=== PATIENT | female | born 1995 | race Caucasian/White ===

== ENCOUNTER → 2019-11-12 18:37 | Outpatient (BNVA) | payer SELFPAY | PROVIDERS: Visit Provider Nurse Practitioner Family | DX: R10.2 Pelvic and perineal pain (principal) | CPT/HCPCS: 81003; 81025; 87491; 87591; 87661 ==

== ENCOUNTER 2021-06-07 13:46 | Emergency (ER) | payer SELFPAY ==
[2021-06-07 14:02] VITALS: BP 115/72; PULSE 94; RESP 18; TEMP 36.4; O2SAT 100; BMI 23.8
--- NOTE | 2021-06-07 15:50 | XRR_ITS ---
PROCEDURE INFORMATION: Exam: XR Right Hand Exam date and time: 06/07/2021 3:50 PM Age: 25 years old Clinical indication: Pain and injury or trauma; Other: Dog bite; Injury details: Noted to have a knot to top of right hand with puncture jackie present. Reports pain as an 8 and describes as throbbing TECHNIQUE: Imaging protocol: XR Right hand. Views: 3 or more views. COMPARISON: No relevant prior studies available. FINDINGS: Bones/joints: No evidence of fracture or other posttraumatic sequela to the underlying osseous structures of the right hand. Joint spaces of the hand are preserved. Soft tissues: Normal. XR/XR hand RT min 3V* [id number] IMPRESSION: No acute osseous abnormalities of the right hand.
--- NOTE | 2021-06-07 17:13 | ED_ITS ---
HPI - Animal Bite General: Chief Complaint: Animal Bite Stated Complaint: DOG BITE/RUE TODAY Time Seen by Provider: 06/07/21 17:13 History of Present Illness: HPI narrative: 25-year-old female comes in today with complaints of injury to the right hand. Patient was trying to hold her dog back from another animal when they got into a fight. Patient sustained a puncture wound to the dorsal and palmar side of her right hand. Patient appears well. Patient appears no acute distress. Animal is patient's own pet. Review of Systems General: Reports: 10 or more systems reviewed and unremarkable except in HPI and below Skin/Breast: Reports: other (Puncture wound hand right.) [facility] ED PFSH: Social History (System 11/28/19 @ 15:34 by Jenn Garnett) Smoking and tobacco status: current every day smoker Alcohol intake: never Physical Exam Const: COMMON NORMALS: no acute distress and patient oriented x3 GENERAL APPEARANCE: cooperative HENMT: COMMON NORMALS: normocephalic and Normal external nose present HEAD & SCALP: normal to inspection and normocephalic NOSE: Normal external nose present MOUTH: Normal oral and palatal mucosa present Eye: GENERAL EYE: appearance normal, both eyes and all related structures Neck/C-Spine: COMMON NORMALS: full ROM Chest: COMMONS NORMALS: normal inspection of the chest Resp: COMMON NORMALS: normal respiratory effort EFFORT & INSPECTION: Yes able to speak in complete sentences Cardio: COMMON NORMALS: regular rate and regular rhythm RATE: regular rate RHYTHM: regular rhythm GI: COMMON NORMALS: non-tender : COMMON NORMALS: Yes no CVA tenderness BLADDER/KIDNEY EXAM: Yes no CVA tenderness Back/Pelvis: COMMON NORMALS: no CVA tenderness and thoracic and lumbar spine normal to inspection Extremity: COMMON NORMALS: normal to inspection Neuro: COMMON NORMALS: patient oriented x3 and moves all extremities Psych: COMMON NORMALS: mental status grossly normal and cooperative Skin: NARRATIVE SKIN EXAM: Puncture wound to the dorsal and palmar aspect of the right hand. Patient is able to move the hand without difficulty. Distal sensation and cap refill are intact. Course ED course: 1729, [facility] was notified of animal bite to the dispatcher's office. Vital Signs: Vital signs: Vital Signs Temperature 97.5 F L 06/07/21 14:02 Pulse Rate 94 06/07/21 14:02 Respiratory Rate 18 06/07/21 14:02 Blood Pressure 115/72 06/07/21 14:02 Pulse Oximetry 100 06/07/21 14:02 MDM - Animal Bite MDM Narrative: Medical decision making narrative: Patient comes in today for evaluation of injury to the right hand. On exam patient has normal range of motion, prompt cap refill, and normal sensation. Vital signs are normal. Patient's tetanus is up-to-date. Differential diagnosis includes fracture, foreign body, puncture wound, animal bite. X-ray was negative for any fracture or foreign body. Wound was cleaned. Patient be started on Augmentin 1 tablet twice a day for 7 days. Encourage fluids rest follow-up for worsening symptoms or new concerns. Patient reported understanding. Discharge Plan Discharge Patient Disposition: Home Clinical Impression: Bite by animal Condition: Stable Prescriptions: New Augmentin 875-125 mg tablet 1 tab PO BID Qty: 14 RF: 0 ibuprofen 800 mg tablet 800 mg PO Q8H PRN (Reason: pain) Qty: 20 RF: 0 Discharge Orders: Discharge ED (Routine); Ordered 06/07/21 Ordered By: Angel Hawthorne Discharge Diet: Usual diet Discharge Activity: Increase activity as tolerated Patient Instructions: Animal Bite (ED), Opioid Safety Activity Restrictions/Additional Instructions: Keep wound clean and dry. Take antibiotics twice a day for the next 7 days. Drink plenty of fluids of antibiotics. Monitor site for worsening swelling redness and fever. Follow-up with primary care return to the ER for new annika rns. Coding Level of Care Code ED Skip Miner for Kyleigh Valadez Exam Comprehensive
== END 2021-06-07 17:20 | disposition home or self-care (01) ==
PROVIDERS: Emergency Provider Nurse Practitioner Family
DX: S61.451A Open bite of right hand, initial encounter (principal); W54.0XXA Bitten by dog, initial encounter; F17.210 Nicotine dependence, cigarettes, uncomplicated
CPT/HCPCS: 73130; 99282

== ENCOUNTER 2021-10-10 10:42 | Emergency (ER) | payer SELFPAY ==
[2021-10-10 11:11] VITALS: BMI 23.8
--- NOTE | 2021-10-10 11:12 | XR_ITS ---
WS: [email or web address] Exam: XR hand RT min 3V* [id number] Date/Time of Exam: 10/10/2021 11:22 AM Reason For Exam: injury, ?radiopaque foreign body Comparison 06/07/2021. No fracture or dislocation. No radiopaque soft tissue foreign bodies are seen. XR/XR hand RT min 3V* [id number] IMPRESSION: 1. Negative right hand.
[2021-10-10 11:28] VITALS: BP 132/81; PULSE 110; RESP 16; O2SAT 97
--- NOTE | 2021-10-10 11:31 | W.ED.EXTPRO ---
HPI - Extremity Problem General: Chief complaint: Extremity Injury, Lower Stated complaint: GLASS IN R HAND Time Seen by Provider: 10/10/21 11:30 History of Present Illness: HPI Narrative: Left hand pain after injury 2 months ago, ongoing MD Complaint: extremity pain and joint pain Location: left and upper extremity Quality: aching Exacerbating factors: range of motion Review of Systems General: Reports: 10 or more systems reviewed and unremarkable except in HPI and below Musc: Reports: joint pain and limited range of motion (left wrist ) PFS ED PFSH: Social History Smoking and tobacco status: current every day smoker Alcohol intake: never Physical Exam Extremity: LEFT UPPER EXTREMITY: Yes wrist (small laceration to the left inside wrist-minimal exudate ) Left wrist: Yes ROM (pain with rotation both supination and pronation) and Yes neurovascular exam (normal) Course ED course: Pt states she has had pain in her left wrist since it went through glass two months ago. She states she has had pain that worsens when she is rotating her wrist. No obvious signs of infection or FB. Xray was negative for FB. Small amount of exudate noted where pt had been trying to see if there was glass still embedded. Will do keflex to treat any underlying infection and hand surgeon if pain persists. Vital Signs: Vital signs: Vital Signs Pulse Rate 110 H 10/10/21 11:28 Respiratory Rate 16 10/10/21 11:28 Blood Pressure 132/81 10/10/21 11:28 Pulse Oximetry 97 10/10/21 11:28 MDM - Extremity (Nontraumatic) Imaging Data^: Xray Ortho: Radiologist's impression: [facility] [address] [place] [address] XRay Report Signed Patient: Shayla Goss Unit #: [id number] : 1995 Age/Sex: 26 / F ADM Date: 10/10/21 Loc: ER Room/Bed: Attending Dr: Ordering Provider/Ordering MD: Dm Chaudhry MD Date of Service: 10/10/21 Procedure(s): XR hand RT min 3V* 93431 Accession Number(s): [id number] Report Number: [id number] WS: [id number] Exam: XR hand RT min 3V* 10835 Date/Time of Exam: 10/10/2021 11:22 AM Reason For Exam: injury, ?radiopaque foreign body Comparison 06/07/2021. No fracture or dislocation. No radiopaque soft tissue foreign bodies are seen. XR/XR hand RT min 3V* [id number] IMPRESSION: 1. Negative right hand. Dictated By: Heri Klein DO Signed By: Heri Klein DO Signed Date/Time: 10/10/21 1141 DD/ 1139 Discharge Plan Discharge Condition: Stable Prescriptions: New Keflex 750 mg capsule 750 mg PO BID 7 Days Qty: 14 RF: 0 No Action Augmentin 875-125 mg tablet 1 tab PO BID Qty: 14 RF: 0 ibuprofen 800 mg tablet 800 mg PO Q8H PRN (Reason: pain) Qty: 20 RF: 0 Discharge Orders: Discharge ED (Routine); Ordered 10/10/21 Ordered By: Aretha Miller Discharge Diet: Usual diet Discharge Activity: Increase activity as tolerated Coding Level of Care Code ED Multifocal Button Inspector for Kyleigh Valadez
--- NOTE | 2021-10-17 11:13 | DCPLANNER ---
senior consulting manager had message to schedule a follow up appointment for patient with a hand surgeon if pain persists. Patient called case resolution specialist and stated that she would like to be referred to Etta. senior consulting manager faxed patients information to Etta, who will call patient with appointment information.
== END 2021-10-10 12:40 ==
PROVIDERS: Emergency Provider Nurse Practitioner Family
DX: M79.642 Pain in left hand (principal); F17.210 Nicotine dependence, cigarettes, uncomplicated
CPT/HCPCS: 73130; 99282

== ENCOUNTER 2021-10-19 09:05 | Emergency (ER) | payer SELFPAY ==
[2021-10-19 09:25] VITALS: BP 151/91; PULSE 82; RESP 19; TEMP 37.2; O2SAT 96; BMI 21.0
--- NOTE | 2021-10-19 09:36 | W.ED.DENTAL ---
HPI - Dental/Oral General: Chief complaint: Dental/Oral Stated complaint: possible absess tooth Time Seen by Provider: 10/19/21 09:06 Source: patient Mode of arrival: ambulatory Limitations: no limitations History of Present Illness: HPI Narrative: Patient is a 26-year-old female who presents to ED today with a complaint of right-sided facial swelling that she noticed when she awoke this morning. Patient states she has chronic very poor dentition. Patient denies fevers or headache. She continues to eat and drink normally. MD Complaint: tooth pain Teeth map: 1. missing tooth; reports pain here Onset (ago): hour(s) Duration: constant Severity: moderate Relieving factors: nothing Exacerbating factors: nothing Context: history of dental caries Associated symptoms: Reports no associated symptoms; Denies ear or mastoid pain, fever(s) or odynophagia Review of Systems Const: Denies: fever(s), chills, body aches, fatigue or malaise Eyes: Denies: change in vision ENMT: Reports: swelling of lips/tongue (some mild R upper lip swelling) and dental pain; Denies: throat pain, uvular edema, enlarged tonsils, odynophagia, oral sores, ear or mastoid pain, ear discharge, nasal discharge, nasal congestion, epistaxis, post nasal drip or sinus pain Card: Denies: chest pain Resp: Denies: dyspnea GI: Denies: nausea or vomiting Musc: Denies: neck pain Skin/Breast: Denies: rash Neuro: Denies: headache(s) PFS ED PFSH: Social History Smoking and tobacco status: current every day smoker Alcohol intake: never Physical Exam Const: COMMON NORMALS: no acute distress, average body habitus, patient oriented x3, no limitations, healthy appearing, alert and well nourished GENERAL APPEARANCE: cooperative HENMT: COMMON NORMALS: normocephalic, atraumatic and Normal external nose present HEAD & SCALP: normal to inspection, normocephalic and atraumatic FACE & SINUS: other (swelling to R maxillary region) FACE & SINUS IMAGES: 1. swelling to R upper lip and overlying R maxillary region; no palpable abscess; no fluctuance to gumline NOSE: Normal external nose present MOUTH: Normal oral and palatal mucosa present, tongue normal and other (floor of mouth is normal) TEETH & GINGIVA: Yes other (extremely poor widespread dental decay) THROAT: posterior oropharynx normal, tonsils normal and uvula midline; no uvular edema Eye: GENERAL EYE: appearance normal, both eyes and all related structures Neck/C-Spine: COMMON NORMALS: full ROM and no lymphadenopathy GENERAL: No anterior neck swelling and No submandibular swelling Neuro: COMMON NORMALS: patient oriented x3 SENSORIUM/ORIENTATION: Yes alert Course Vital Signs: Vital signs: Vital Signs Temperature 98.9 F 10/19/21 09:25 Pulse Rate 84 10/19/21 09:44 Respiratory Rate 18 10/19/21 09:44 Blood Pressure 151/92 10/19/21 09:44 Pulse Oximetry 96 10/19/21 09:44 MDM - Dental/Oral MDM Narrative: Medical decision making narrative: Swelling just started this AM. I don't think emergent labs/imaging would be overly helpful at this time. Will place on oral clindamycin and recommend prompt dental follow up-resources provided for nearby clinics. Strict return to ED precautions given. Discharge Plan Discharge Patient Disposition: Home Clinical Impression: Dental caries, Dental abscess Condition: Stable Prescriptions: New clindamycin HCl 300 mg capsule 300 mg PO Q6H 7 Days Qty: 28 RF: 0 Discontinued amoxicillin-pot clavulanate [Augmentin] 875-125 mg tablet 1 tab PO BID Qty: 14 RF: 0 No Action ibuprofen 800 mg tablet 800 mg PO Q8H PRN (Reason: pain) Qty: 20 RF: 0 Discharge Orders: Discharge ED (Routine); Ordered 10/19/21 Ordered By: Marla Perez Patient Instructions: Dental Caries (Cavities), Dental Abscess (ED) Activity Restrictions/Additional Instructions: As we discussed you need to follow-up with a dentist as soon as possible. I have provided you dental resources to help with this. You need to return to the emergency department for worsening swelling, pain, fevers, severe headache, or any other concerns you may have. I hope you begin to feel better soon. Coding Level of Care Code ED Research Quality Assurance Specialist for Kyleigh Valadez
--- NOTE | 2021-10-19 09:43 | PC.NURSE ---
Dental cavities on top right
[2021-10-19 09:44] VITALS: BP 151/92; PULSE 84; RESP 18; O2SAT 96
== END 2021-10-19 09:47 | disposition home or self-care (01) ==
PROVIDERS: Emergency Provider Physician Assistant
DX: K02.9 Dental caries, unspecified (principal); K04.7 Periapical abscess without sinus; F17.210 Nicotine dependence, cigarettes, uncomplicated
CPT/HCPCS: 99282

== ENCOUNTER 2022-01-28 12:58 | Emergency (ER) | payer MEDICAID, SELFPAY ==
[2022-01-28 13:13] VITALS: BP 118/74; PULSE 87; RESP 18; TEMP 36.7; O2SAT 100; BMI 23.2
--- NOTE | 2022-01-28 13:50 | XR_ITS ---
WS: [id number] Exam: XR chest 2V* [id number] Date/Time of Exam: 01/28/2022 2:02 PM Reason For Exam: chest pain No priors. Findings: The lungs are clear and fully expanded. Costophrenic angles are sharp. No infiltrates. Bronchovascula r relief appears normal. Cardiac silhouette is unremarkable. Bony elements are intact. XR/XR chest 2V* [id number] IMPRESSION: Unremarkable chest radiograph.
--- NOTE | 2022-01-28 13:50 | ECG_ITS ---
[facility] Test Date: 2022-01-28 Pat Name: Shayla Goss Department: Room: Gender: Female Estate Attorney: : 1995 Requested By: Saida Devries Order Number: [id number] Masha MD: Ken Palmer M.D. Measurements Intervals [place] Rate: 73 P: 60 FL: 125 QRS: 58 QRSD: 86 T: 55 QT: 379 QTc: 420 Interpretive Statements SINUS RHYTHM WITH SINUS ARRHYTHMIA Compared to ECG 04/27/2016 21:57:06 Sinus tachycardia no longer present Electronically Signed On 01-29-2022 17:02:22 CDT by Ken Palmer M.D. [id number]
[2022-01-28 14:42] VITALS: BP 118/74; PULSE 87; RESP 16; O2SAT 100
--- NOTE | 2022-01-28 14:52 | W.ED.GENADLT ---
HPI - General Adult General: Chief complaint: Chest Pain Stated complaint: CP Time Seen by Provider: 01/28/22 14:36 History of Present Illness: Patient is a 26-year-old female with a family hx of heart attacks presenting to the emergency room for evaluation of chest pain. Patient tells me she was rolling a cigarette in a 30 this morning when she began having chest pain. Patient noted that she has pressure-like sensation lasting for 10 minutes at a time she has had multiple episodes chest pain today. Patient denies any nausea vomiting, exertional shortness of breath, pleuritic chest pain, tearing stabbing chest pain w/ radiation to the back. Patient denies any history of prior VTE or aneurysm. Patient denies any leg swelling, recent immobilization or travel, OCP use Onset: 8:30am Duration: 5 hrs Location:home Severity:moderate Associated symptoms: Reports chest pain; Deny dyspnea, nausea, rash, palpitations or vomiting Review of Systems Const: Denies: fever(s) or chills Eyes: Denies: change in vision ENMT: Denies: mouth pain Card: Reports: chest pain; Denies: palpitations Resp: Denies: dyspnea or non-productive cough GI: Denies: abdominal pain, nausea, vomiting or diarrhea : Denies: dysuria Musc: Denies: extremity pain Skin/Breast: Denies: rash or new lesions Neuro: Denies: weakness in extremities Psych: Reports: other (Normal mood) Barrera/Lymph: Denies: easy bruising PFS ED PFSH: Family History (Updated 01/28/22 @ 14:54 by Saida Devries MD) Other CAD (coronary artery disease) Social History (Updated 01/28/22 @ 14:54 by Saida Devries MD) Smoking and tobacco status: current every day smoker Alcohol intake: never Physical Exam Const: COMMON NORMALS: alert HENMT: COMMON NORMALS: atraumatic HEAD & SCALP: atraumatic MOUTH: moist mucous membranes not abnormal Eye: COMMON NORMALS: EOMs intact bilaterally and conjunctivae normal CONJUNCTIVA: Yes conjunctivae normal Neck/C-Spine: COMMON NORMALS: full ROM and supple Resp: COMMON NORMALS: normal respiratory effort and clear to auscultation bilaterally AUSCULTATION: clear to auscultation bilaterally Cardio: COMMON NORMALS: regular rate RATE: regular rate OTHER: 2+ radial pulses b/l GI: COMMON NORMALS: Soft to palpation and non-tender PALPATION: Yes Soft to palpation Extremity: COMMON NORMALS: full ROM Neuro: SENSORIUM/ORIENTATION: Yes alert MOTOR EXAM: No Abnormal motor strength present and Other motor observations present (no focal motor deficits) Psych: COMMON NORMALS: speech normal SPEECH: Yes normal speech MOOD & AFFECT: Yes euthymic mood Course Vital Signs: Vital signs: Vital Signs Temperature 98.1 F 01/28/22 13:13 Pulse Rate 87 01/28/22 14:42 Respiratory Rate 16 01/28/22 14:42 Blood Pressure 118/74 01/28/22 14:42 Pulse Oximetry 100 01/28/22 14:42 MDM - General Adult Medical Decision Making 26-year-old female with his family history of cardiac diseases, hypertension presenting to the emergency room for evaluation of new onset of chest pain since 830 this morning. On exam, patient is hemodynamically stable not complaining of active chest pain at this time. Troponin x2 within normal limit. EKG is nonischemic x2. HEART score of 2 (risks - 1, chest pain - 1), which indicates patient can be safely discharged with close outpatient followup. However, given family hx of cardiac issues, I discussed case with Dr. Palmer from Cardiology at 6:45 PM who recommended close in the next 2-4 days for outpatient exercise stress test. Patient aware of the notice from Dr. Palmer's office for stress test. I discussed these findings with patient and instructed patient to come back to the emergency room should she have any further episodes of chest pain, palpitation, lightheadedness or any new extremity complaints. Disposition: Discharge. Patient counseled regarding diagnostic impression, treatment plan. Patient given ED strict return precautions to return for continuation, worsening, or development of new symptoms. Instructed to f/u w/ Dr. Palmer regarding symptoms today. Patient verbalized understanding. Lab Data : 01/28/22 16:07 01/28/22 16:07 Radiology Impressions Chest X-Ray 01/28/22 13:50 IMPRESSION: Unremarkable chest radiograph. Laboratory Results WBC 9.9 10^3/uL (4.0-10.0) 01/28/22 16:07 RBC 5.00 10^6/uL (4.1-5.3) 01/28/22 16:07 Hgb 15.6 g/dL (11.5-15.3) H 01/28/22 16:07 Hct 46.0 % (37.0-47.0) 01/28/22 16:07 MCV 92.0 fl (81-99) 01/28/22 16:07 MCH 31.2 pg (28.0-34.0) 01/28/22 16:07 MCHC 33.9 g/dL (30.0-36.0) 01/28/22 16:07 RDW 12.7 % (12.1-15.1) 01/28/22 16:07 Plt Count 331 10^3/cmm (130-400) 01/28/22 16:07 MPV 8.8 fL (7.4-10.4) 01/28/22 16:07 Neut % (Auto) 65.0 % 01/28/22 16:07 Lymph % (Auto) 24.6 % 01/28/22 16:07 Carter % (Auto) 6.0 % 01/28/22 16:07 Eos % (Auto) 3.3 % 01/28/22 16:07 Baso % (Auto) 0.8 % 01/28/22 16:07 Neut # (Auto) 6.45 10^3/uL (1.8-7.7) 01/28/22 16:07 Lymph # (Auto) 2.4 10^3/uL (0.8-4.8) 01/28/22 16:07 Carter # (Auto) 0.6 10^3/uL (0.2-0.9) 01/28/22 16:07 Eos # (Auto) 0.3 10^3/uL (0.0-0.8) 01/28/22 16:07 Baso # (Auto) 0.1 10^3/uL (0.0-0.1) 01/28/22 16:07 Nucleated RBC % (auto) 0 % 01/28/22 16:07 Nucleated RBCs # 0.0 /100WBC 01/28/22 16:07 Sodium 135 mmol/L (136-145) L 01/28/22 16:07 Potassium 4.1 mmol/L (3.5-5.1) 01/28/22 16:07 Chloride 101 mmol/L (98-107) 01/28/22 16:07 Carbon Dioxide 23 mmol/L (22-29) 01/28/22 16:07 Anion Gap 15.1 (5-19) 01/28/22 16:07 BUN 12 mg/dL (6-20) 01/28/22 16:07 Creatinine 0.8 mg/dL (0.5-0.9) 01/28/22 16:07 GFR Calculation 86.0 mL/min (90-130) L 01/28/22 16:07 Glucose 86 mg/dL (65-115) 01/28/22 16:07 Calculated Osmolality 279 mOsm/kg (285-295) L 01/28/22 16:07 Calcium 9.6 mg/dL (8.5-10.5) 01/28/22 16:07 Troponin T Baseline 6 ng/L (0-10) 01/28/22 16:07 Troponin T 120 Minute 6.00 ng/L (0-10) 01/28/22 17:53 Delta Troponin T 0 ABS# (0-10) 01/28/22 17:53 Imaging Data Other Imaging: Radiologist's impression: [employer] [address] XRay Report Signed Patient: Shayla Goss Unit #: [id number] : 1995 Age/Sex: 26 / F ADM Date: 01/28/22 Loc: ER Room/Bed: Attending Dr: Ordering Provider/Ordering MD: Saida Devries MD Date of Service: 01/28/22 Procedure(s): XR chest 2V* 20570 Accession Number(s): [id number] Report Number: [id number] WS: [id number] Exam: XR chest 2V* [id number] Date/Time of Exam: 01/28/2022 2:02 PM Reason For Exam: chest pain No priors. Findings: The lungs are clear and fully expanded. Costophrenic angles are sharp. No infiltrates. Bronchovascular relief appears normal. Cardiac silhouette is unremarkable. Bony elements are intact. ? XR/XR chest 2V* [id number] IMPRESSION: Unremarkable chest radiograph. ? ? Dictated By: Heri Klein DO Signed By: Heri Latoya, DO Signed Date/Time: 01/28/221412 DD/ 12 Discharge Plan Discharge Patient Disposition: Home Clinical Impression: Chest pain Prescriptions: New acetaminophen 500 mg tablet 500 mg PO Q6H PRN (Reason: pain) 5 Days Qty: 20 0RF Discharge Orders: Discharge ED (Routine); Ordered 01/28/22 Ordered By: Saida Devries Discharge Diet: Advance as tolerated Discharge Activity: Increase activity as tolerated Patient Instructions: Chest Pain (ED) Activity Restrictions/Additional Instructions: Come back to the emergency room if your chest pain worsens, have any fever or chills, worsening shortness of breath, worsening exertional lightheadedness, or any new or concerning complaints. Stand Alone Forms: Work/School Release Coding Level of Care Code ED Contract Mail Carrier for Patriciag Fwd Exam Comprehensive
[2022-01-28 16:29] LABS: Basophils # 0.1 10^3/uL (0.0-0.1); Basophils % 0.8 %; Eosinophils # 0.3 10^3/uL (0.0-0.8); Eosinophils % 3.3 %; Hemoglobin 15.6 g/dL (11.5-15.3); Lymphocytes # 2.4 10^3/uL (0.8-4.8); Lymphocytes % 24.6 %; Mean Corpuscular HGB Conc 33.9 g/dL (30.0-36.0); Mean Corpuscular Hemoglobin 31.2 pg (28.0-34.0); Mean Platelet Volume 8.8 fL (7.4-10.4); Monocytes # 0.6 10^3/uL (0.2-0.9); Neutrophils # 6.45 10^3/uL (1.8-7.7); Nucleated Red Blood Cells % 0 %; Platelet Count 331 10^3/cmm (130-400); Red Cell Distribution Width 12.7 % (12.1-15.1); White Blood Count 9.9 10^3/uL (4.0-10.0)
--- NOTE | 2022-01-28 16:47 | ECG_ITS ---
[facility] Test Date: 2022-01-28 Pat Name: Shayla Goss Department: Room: Gender: Female Bus And Trolley Dispatcher: : 1995 Requested By: Saida Devries Order Number: [id number] Masha MD: Ken Palmer M.D. Measurements Intervals [place] Rate: 72 P: 58 [place]: 120 QRS: 59 QRSD: 92 T: 61 QT: 386 QTc: 422 Interpretive Statements SINUS RHYTHM WITH SINUS ARRHYTHMIA POSSIBLE RIGHT VENTRICULAR CONDUCTION DELAY [RSR (QR) IN V1/V2] Compared to ECG 01/28/2022 13:21:48 No significant changes Electronically Signed On 01-29-2022 17:15:35 CDT by Ken Palmer M.D. [id number]
[2022-01-28 16:53] LABS: Anion Gap 15.1 (5-19); Blood Urea Nitrogen 12 mg/dL (6-20); Calcium 9.6 mg/dL (8.5-10.5); Carbon Dioxide 23 mmol/L (22-29); Chloride 101 mmol/L (98-107); Glucose 86 mg/dL (65-115); Osmolality Calculated 279 mOsm/kg (285-295); Potassium 4.1 mmol/L (3.5-5.1); Sodium 135 mmol/L (136-145)
[2022-01-28 17:20] LABS: Troponin(5th) Baseline 6 ng/L (0-10)
[2022-01-28] MEDS: nitroglycerin 0.4 mg sublingual Tablet SUBLINGUAL (17:25)
[2022-01-28 18:41] LABS: Troponin 5 2HR Delta 0 ABS# (0-10)
--- NOTE | 2022-01-31 13:37 | DCPLANNER ---
Addendum entered by Pratima Soria 07/22/22 14:49: was inactivated by [employer] per no self-pay clearance. Addendum entered by Pratima Soria 02/03/22 09:39: enterprise project manager spoke with Nemo at centralized scheduling to confirm that order was received. Original Note: enterprise project manager had message to schedule an outpatient treadmill stress test in the next 2-[address] Palmer. enterprise project manager was reading patients chart, it read as if Dr. Palmer was going to order the stress test. enterprise project manager spoke with Trish Hurtado at [facility], and was told that there was an order in the computer in patients chart for a cardiac stress test. enterprise project manager called centralized scheduling to confirm that they had received the order, briefcase sewer asked centralized scheduling to look in ambulatory orders. enterprise project manager was told that centralized scheduling did have the order for a stress test.
== END 2022-01-28 18:59 | disposition home or self-care (01) ==
PROVIDERS: Emergency Provider Emergency Medicine
DX: R07.9 Chest pain, unspecified (principal); Z82.49 Family history of ischemic heart disease and other diseases of the circulatory system; F17.200 Nicotine dependence, unspecified, uncomplicated
CPT/HCPCS: 36415; 71046; 80048; 84484; 85025; 93005; 99283

== ENCOUNTER 2022-04-04 10:07 | Inpatient (IN) | payer MEDICAID, SELFPAY ==
[2022-04-04 10:12] VITALS: BP 128/109; PULSE 127; RESP 18; O2SAT 100; BMI 20.1
--- NOTE | 2022-04-04 12:03 | PC.PHAR ---
PT UNABLE TO VERIFY- CALLED BOTH PHARMACIES LISTED NOTHING FILLED SINCE 2020
[2022-04-04] MEDS: diphenhydrAMINE 50 mg/mL SDV 1mL IM (12:11)
[2022-04-04] MEDS: LORazepam 2 mg/mL INJ 1 mL IM (12:11)
--- NOTE | 2022-04-04 13:05 | W.ED.AMS ---
HPI - Altered Mental Status General: Chief Complaint: Altered Mental Status Stated Complaint: MHE Time Seen by Provider: 04/04/22 10:16 Source: patient and police Mode of arrival: ambulatory Limitations: altered mental status History of Present Illness: 26-year-old female presented to the emergency room after being evidently dropped off by an unknown male. She was behaving erratically and police were called and they arrived she had tangential thinking was not aware of time place or person. She has a history of substance abuse. When I came to see the patient she is difficult to engage, she answers questions with tangential thinking and deflects. She declines to answer questions about suicidal thoughts or ideation. She repeatedly states that she just needs documentation so that she can get an appointment and see how her day will go. When I try to follow her line of thinking she is unable to provide any further answers. We did contact her father who evidently has been estranged from her and could not give us any history. She does not appear to have any auditory visual hallucinations. MD complaint: altered mental status Onset (ago): unknown Severity: severe Consistency of symptoms: Unknown Context: drug abuse Associated symptoms: Reports auditory hallucinations (Late in the ER course), delusions and racing thoughts; Deny visual hallucinations, homicidal ideation or suicidal ideation Review of Systems General: Reports: ROS unobtainable due to mental status Psych: Reports: auditory hallucinations (Late in the ER course); Denies: visual hallucinations, suicidal ideation or homicidal ideation [facility] ED PFSH: Family History Other CAD (coronary artery disease) Social History Smoking and tobacco status: current every day smoker Alcohol intake: never Substance/Drug Use: current Physical Exam Const: EXAM LIMITATIONS: altered mental status GENERAL APPEARANCE: anxious and disheveled; not cooperative NUTRITIONAL APPEARANCE: underweight ORIENTATION/CONSCIOUSNESS: not oriented to person, not oriented to place and not oriented to time HENMT: COMMON NORMALS: normocephalic and atraumatic HEAD & SCALP: normocephalic and atraumatic Eye: COMMON NORMALS: Equal, round and reactive pupils present, EOMs intact bilaterally and conjunctivae normal CONJUNCTIVA: Yes conjunctivae normal PUPIL: Yes Equal, round and reactive pupils present Neck/C-Spine: COMMON NORMALS: full ROM and no lymphadenopathy Resp: COMMON NORMALS: normal respiratory effort, No retractions, No use of accessory muscles and clear to auscultation bilaterally AUSCULTATION: clear to auscultation bilaterally Cardio: COMMON NORMALS: regular rhythm RATE: tachycardic RHYTHM: regular rhythm GI: COMMON NORMALS: Soft to palpation and No hepatosplenomegaly present AUSCULTATION: Yes normoactive bowel sounds PALPATION: Yes Soft to palpation, No Tenderness to palpation present (GI), No Guarding due to palpation present (GI) and Yes No hepatosplenomegaly present : COMMON NORMALS: Yes no CVA tenderness BLADDER/KIDNEY EXAM: Yes no CVA tenderness Back/Pelvis: COMMON NORMALS: no CVA tenderness Neuro: SENSORIUM/ORIENTATION: No oriented to person, No oriented to place and No oriented to time Psych: THOUGHT CONTENT: Yes delusions Course Vital Signs: Vital signs: Vital Signs Temperature 98.1 F 04/05/22 06:00 Pulse Rate 69 04/05/22 06:00 Respiratory Rate 18 04/05/22 06:00 Blood Pressure 103/64 04/05/22 06:00 Pulse Oximetry 98 04/05/22 06:00 MDM - Altered Mental Status Medical Decision Making Patient is methamphetamine due to psychosis. We gave her Benadryl and Ativan to help with the agitation. I had hoped that after a time when she did settle down the psychosis would resolve and we would be able to discharge her home. However after waiting several hours patient continued to be significantly disoriented and have tangential thinking. Later in the visit she even had a few mild hallucinations. There is no comments alluding to suicidal or homicidal ideation however she is not safe to be discharged at this time discussed Dr. De Leon will admit for acute drug-induced psychosis. She is on a 96-hour hold. Medical Records I reviewed the patient's medical records. Lab Data I reviewed the patient's lab results. : 04/04/22 13:50 04/04/22 13:50 Laboratory Results WBC 9.1 10^3/uL (4.0-10.0) 04/04/22 13:50 RBC 5.35 10^6/uL (4.1-5.3) H 04/04/22 13:50 Hgb 16.7 g/dL (11.5-15.3) H 04/04/22 13:50 Hct 47.5 % (37.0-47.0) H 04/04/22 13:50 MCV 88.8 fl (81-99) 04/04/22 13:50 MCH 31.2 pg (28.0-34.0) 04/04/22 13:50 MCHC 35.2 g/dL (30.0-36.0) 04/04/22 13:50 RDW 12.4 % (12.1-15.1) 04/04/22 13:50 Plt Count 412 10^3/cmm (130-400) H 04/04/22 13:50 MPV 8.4 fL (7.4-10.4) 04/04/22 13:50 Neut % (Auto) 67.3 % 04/04/22 13:50 Lymph % (Auto) 21.9 % 04/04/22 13:50 [place] % (Auto) 8.2 % 04/04/22 13:50 Eos % (Auto) 1.8 % 04/04/22 13:50 Baso % (Auto) 0.6 % 04/04/22 13:50 Neut # (Auto) 6.10 10^3/uL (1.8-7.7) 04/04/22 13:50 Lymph # (Auto) 2.0 10^3/uL (0.8-4.8) 04/04/22 13:50 [place] # (Auto) 0.7 10^3/uL (0.2-0.9) 04/04/22 13:50 Eos # (Auto) 0.2 10^3/uL (0.0-0.8) 04/04/22 13:50 Baso # (Auto) 0.1 10^3/uL (0.0-0.1) 04/04/22 13:50 Nucleated RBC % (auto) 0 % 04/04/22 13:50 Nucleated RBCs # 0.0 /100WBC 04/04/22 13:50 Sodium 138 mmol/L (136-145) 04/04/22 13:50 Potassium 3.6 mmol/L (3.5-5.1) 04/04/22 13:50 Chloride 99 mmol/L (98-107) 04/04/22 13:50 Carbon Dioxide 25 mmol/L (22-29) 04/04/22 13:50 Anion Gap 17.6 (5-19) 04/04/22 13:50 BUN 8 mg/dL (6-20) 04/04/22 13:50 Creatinine 0.8 mg/dL (0.5-0.9) 04/04/22 13:50 GFR Calculation 86.0 mL/min (90-130) L 04/04/22 13:50 Glucose 79 mg/dL (65-115) 04/04/22 13:50 Calculated Osmolality 283 mOsm/kg (285-295) L 04/04/22 13:50 Calcium 9.8 mg/dL (8.5-10.5) 04/04/22 13:50 Total Bilirubin 0.7 mg/dL (0.15-1.2) 04/04/22 13:50 AST 18 U/L (0-32) 04/04/22 13:50 ALT 13 U/L (0-33) 04/04/22 13:50 Alkaline Phosphatase 89 IU/L (35-105) 04/04/22 13:50 Total Protein 8.6 g/dL (6.6-8.7) 04/04/22 13:50 Albumin 5.1 g/dL (3.5-5.2) 04/04/22 13:50 Globulin 3.5 g/dL (1.3-4.6) 04/04/22 13:50 HCG, Qual Negative (Negative) 04/04/22 13:58 Urine Color Dark yellow (Yellow) 04/04/22 13:08 Urine Appearance Cloudy (CLEAR) 04/04/22 13:08 Urine pH 5 (5-7) 04/04/22 13:08 Ur Specific [place] 1.030 (1.005-1.030) 04/04/22 13:08 Urine Protein 1+ (Negative) H 04/04/22 13:08 Urine Glucose (UA) Norm (Normal) 04/04/22 13:08 Urine Ketones 1+ (Negative) H 04/04/22 13:08 Urine Blood Trace (Negative) H 04/04/22 13:08 Urine Nitrate Positive (Negative) H 04/04/22 13:08 Urine Bilirubin 1+ (Negative) H 04/04/22 13:08 Urine Urobilinogen 4 mg/dL (Negative) H 04/04/22 13:08 Ur Leukocyte Esterase 1+ (Negative) H 04/04/22 13:08 Urine RBC 0-4 /hpf (0-2) H 04/04/22 13:08 Urine WBC 15-25 /hpf (0-5) H 04/04/22 13:08 Ur Squamous Epith Cells 5-10 /hpf (0-5) H 04/04/22 13:08 Amorphous Sediment Not Reportable 04/04/22 13:08 Urine Bacteria 3+ /hpf (NONE) H 04/04/22 13:08 Hyaline Casts 0-4 /lpf H 04/04/22 13:08 Urine Mucus 2+ /hpf 04/04/22 13:08 Salicylates < 0.3 mg/dL (3-10) L 04/04/22 13:50 Urine Opiates Screen Negative ng/mL (Negative) 04/04/22 13:08 Acetaminophen < 5.0 ug/mL (10-30) L 04/04/22 13:50 Ur Barbiturates Screen Negative ng/mL (Negative) 04/04/22 13:08 Ur Phencyclidine Scrn Negative ng/mL (Negative) 04/04/22 13:08 Ur Amphetamines Screen Positive ng/mL (Negative) H 04/04/22 13:08 U Benzodiazepines Scrn Negative ng/mL (Negative) 04/04/22 13:08 Urine Cocaine Screen Negative ng/mL (Negative) 04/04/22 13:08 U Marijuana (THC) Screen Negative ng/mL (Negative) 04/04/22 13:08 Ethyl Alcohol < 10 mg/dL (0-10) 04/04/22 13:50 Discharge Plan Discharge Patient Disposition: Admitted As Inpatient Admit Provider: Beau De Leon Clinical Impression: Drug-induced psychotic disorder Condition: Stable Coding Level of Care Code ED Animal Attendants And Trainers for Chg Fwd Exam Comprehensive
[2022-04-04 13:27] LABS: Amphetamines Screen Urine Positive (Negative); Barbiturates Screen Urine Negative (Negative); Benzodiazepines Screen Urine Negative (Negative); Cocaine Screen Urine Negative (Negative); Opiate Screen Urine Negative (Negative); PCP Screen Urine Negative (Negative); THC Screen Urine Negative (Negative)
[2022-04-04 13:43] LABS: Add Urine Microscopic? YES; Bilirubin Urine 1+ (Negative); Blood Urine Trace (Negative); Glucose Urine UA Norm (Normal); Ketones Urine 1+ (Negative); Leukocyte Esterase Urine 1+ (Negative); Nitrate Urine Positive (Negative); Protein Urine 1+ (Negative); Urine Appearance Cloudy (CLEAR); Urine Color Dark Yellow (Yellow); Urobilinogen Urine 4 mg/dL (Negative); pH Urine 5 (5-7)
[2022-04-04 13:52] LABS: Bacteria Urine 3+ /hpf; Hyaline Casts Urine 0-4 /lpf; Mucus Urine 2+ /hpf; RBC Urine 0-4 /hpf (0-2); WBC Urine 15-25 /hpf (0-5)
[2022-04-04 13:53] LABS: Add Urine Culture? Yes
[2022-04-04 13:59] LABS: Basophils # 0.1 10^3/uL (0.0-0.1); Basophils % 0.6 %; Eosinophils # 0.2 10^3/uL (0.0-0.8); Eosinophils % 1.8 %; Hematocrit 47.5 % (37.0-47.0); Hemoglobin 16.7 g/dL (11.5-15.3); Lymphocytes % 21.9 %; Mean Corpuscular HGB Conc 35.2 g/dL (30.0-36.0); Mean Corpuscular Hemoglobin 31.2 pg (28.0-34.0); Mean Corpuscular Volume 88.8 fl (81-99); Mean Platelet Volume 8.4 fL (7.4-10.4); Monocytes # 0.7 10^3/uL (0.2-0.9); Monocytes % 8.2 %; Neutrophils % 67.3 %; Nucleated Red Blood Cells % 0 %; Platelet Count 412 10^3/cmm (130-400); Red Blood Count 5.35 10^6/uL (4.1-5.3); Red Cell Distribution Width 12.4 % (12.1-15.1); White Blood Count 9.1 10^3/uL (4.0-10.0)
[2022-04-04 14:21] LABS: Alanine Aminotransferase 13 U/L (0-33); Albumin Level 5.1 g/dL (3.5-5.2); Alkaline Phosphatase 89 IU/L (35-105); Anion Gap 17.6 (5-19); Aspartate Amino Transferase 18 U/L (0-32); Blood Urea Nitrogen 8 mg/dL (6-20); Calcium 9.8 mg/dL (8.5-10.5); Carbon Dioxide 25 mmol/L (22-29); Chloride 99 mmol/L (98-107); Globulin 3.5 g/dL (1.3-4.6); Glucose 79 mg/dL (65-115); Osmolality Calculated 283 mOsm/kg (285-295); Potassium 3.6 mmol/L (3.5-5.1); Sodium 138 mmol/L (136-145); Total Bilirubin 0.7 mg/dL (0.15-1.2); Total Protein 8.6 g/dL (6.6-8.7)
[2022-04-04 14:26] LABS: Acetaminophen < 5.0 ug/mL (10-30); Alcohol Level < 10 mg/dL (0-10); Salicylate < 0.3 mg/dL (3-10)
[2022-04-04 14:54] VITALS: BP 97/70; PULSE 77; RESP 16; O2SAT 100
--- NOTE | 2022-04-04 14:54 | PC.NURSE ---
Rounded on pt. Pt sleeping respirations even and unlabored at this time.
--- NOTE | 2022-04-04 15:51 | PC.NURSE ---
Rounded on pt. Pt sleeping respirations even and unlabored at this time.
[2022-04-04 18:30] LABS: HCG Qualitative Urine. Negative (Negative)
[2022-04-04 19:30] VITALS: BP 105/74; PULSE 100; RESP 20; TEMP 36.6; O2SAT 99
[2022-04-05 06:00] VITALS: BP 103/64; PULSE 69; RESP 18; TEMP 36.7; O2SAT 98
--- NOTE | 2022-04-05 09:04 | PC.NURSE ---
WHEN ASKED WHY SHE IS HERE PT STATES, I FORGOT THE DATE AND THEY THREW ME IN HERE. NO EYE CONTACT THROUGH OUT ASSESSMENT. DENIES PAIN. DENIES SI/HI AND AVH AT THIS TIME. SUPPORT VOICED.
--- NOTE | 2022-04-05 09:31 | P.NPUHP_ITS ---
Providers/Chief Complaint Admitting Physician: Beau De Leon MD Chief Complaint: MHE/96 hour hold HPI NPU History of Present Illness Shayla Goss is a 26 year old female admitted through our emergency depar tment with the following report: 26-year-old female presented to the emergency room after being evidently dropped off by an unknown male.? She was behaving erratically and police were called and they arrived she had tangential thinking was not aware of time place or person.? She has a history of substance abuse.? When I came to see the patient she is difficult to engage, she answers questions with tangential thinking and deflects.? She declines to answer questions about suicidal thoughts or gurinder ation.? She repeatedly states that she just needs documentation so that she can get an appointment and see how her day will go.? When I try to follow her line of thinking she is unable to provide any further answers.? We did contact her father who evidently has been estranged from her and could not give us any history.? She does not appear to have any auditory visual hallucinations. Urine drug screen was positive for methamphetamine She says that she woke up yesterday and her lover, Wade, said that she needed to go to the hospital. He said that she needed mental help. She says that he must not have liked her mood but she does not really know why he thought that. They have been together for about 3 months. She says that he has treated her well up until now. She says that when he brought her here she was resistant to getting out of the car and he evidently called the police. The police say that they came and found her walking her dog and was not able to say where she was. She says that she was in [place] but did not know what states she was in. She did not know what day it was. She says that she is worried because she does not know where her dog is. She thinks that her lover may have made her go to the hospital so that he could get her dog. She has had her dog for 2 years since it was a puppy. She is very worried because she does not know where her dog is. She denies any difficulties with depression, anxiety or mood swings. She denies using methamphetamine recently. She has had her last use was 3 or 6 months ago and she never used very much. She said that she has worked quite a bit in the last year. She has not worked in the last 3 or 4 months. She could not really explain that. She says that she gets subsidized housing and that Marli salgado helps pay her rent. She gets food stamps. She says she was working up until about 4 months ago. Her explanation of not working since then is really difficult to understand. 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 She says that she has been living in her current apartment for about 1 year. She says that her childhood was fine. She denies any emotional difficulty during her teenage years. She says that she graduated from high school. She does not speak much with her mother or father. The emergency room talk with her father who said that he is estranged from her. The emergency room doctor told me that it was because of her drug use. When I asked her about it she had tears in her eyes but did not have an explanation about why she was estranged from her parents. She says they just do not talk. She denies having any emotional difficulties. She denies prior hospitalization. She denies any mental health treatment. She denies difficulty with alcohol, marijuana or methamphetamine. She was informed that she was on a 96-hour hold and that we needed to watch her to make sure that it was safe for her to be released. PAST PSYCHIATRIC HISTORY As above SOCIAL HISTORY As above Meds NPU Home Medications Medication Instructions Recorded Confirmed Last Taken Type No Known Home Medications 04/04/22 04/04/22 Unknown History Allergies Allergy/AdvReac Type Severity Reaction Status Date / Time No Known Allergies Allergy Verified 01/28/22 13:17 PFSH NPU PFSH: Family History Other CAD (coronary artery disease) Social History Smoking and tobacco status: current every day smoker Alcohol intake: never Substance/Drug Use: current Mental Status Exam MSE Comments: This is a thin 24-year-old female who appears approximately her stated age and is in no acute distress.? She was found sitting in the day room by herself with a carton of milk and some cereal in an unopened container sitting in front of her.? She was pleasant with the conversation.? She attempted to answer questions.? She is poorly groomed and in hospital scrubs psychomotor activity is mildly decreased. Speech is at a regular rate and rhythm, normal volume, good articulation, not pressured. Alert, oriented X3 Attention and concentration appear to be normal. Memory is intact Mood is good.? Affect is subdued.? She was only tearful when talking about her parents Thought process is logical and goal-directed. Thought content:? Denies auditory and visual hallucinations.? No delusions or paranoia are noted.? No current suicidal ideation.? He denies homicidal ideation.? Fund of knowledge is probably average. Insight and judgment appear to be poor. Impulse control is very poor. Vitals/I&O/Wt Last Vital Signs Temp 98.1 F 04/05/22 06:00 Pulse 69 04/05/22 06:00 Resp 18 04/05/22 06:00 BP 103/64 04/05/22 06:00 Pulse Ox 98 04/05/22 06:00 Weight last 48 hrs Weight 49.895 kg Data NPU : 04/04/22 13:50 04/04/22 13:50 A&P Assessment and plan (1) Drug-induced psychotic disorder: Status: Acute (2) Methamphetamine abuse: Status: Acute Plan This is a 26-year-old female who presents psychotic probablybecause of methamphetamine intoxication Plan: 1. We will observe only on as needed medications. 2. Continue every 15 minute checks for safety. 3. Encourage individual, group and milieu therapies. 4. Encourage sober living treatment after discharge at the highest level of care to which she is willing to commit. 5. We will monitor for safety for herself in the community prior to discharge. Involuntary Hold Information 96 Hour Hold: 96 Hour Involuntary Admission: Yes 96 Hour Hold Ending Date: 04/10/22 96 Hour Hold Ending Time: 18:30 Attestations NPU Medical Necessity Statement*: Inpatient hospitalization is medically necessary and the clinically appropriate intervention at this time. We will initiate medications and make changes as indicated. She will be in the hospital for over 2 midnights. Likely length of stay 4-6 days Coding Level of Care Code Acute Rat Trapper for Kyleigh Valadez Diagnoses Drug-induced psychotic disorder F19.959 Methamphetamine abuse F15.10
--- NOTE | 2022-04-05 13:36 | PC.NURSE ---
Pt refused morning meds of folic acid, multivitamin, thiamine B-1.
[2022-04-05 14:00] VITALS: BP 116/79; PULSE 110; RESP 18; TEMP 37.1; O2SAT 98
--- NOTE | 2022-04-05 14:02 | PC.NURSE ---
Pt was outside during a small group session and stated that she was hot, then removed her shirt. Staff instructed her to please put her shirt back on.
--- NOTE | 2022-04-05 15:47 | PC.NURSE ---
Addendum entered by Heather Sanchez RN 04/05/22 15:59: ATTEMPTED TO GIVE ORAL B52, PT SPIT OUT MEDIATIONS AND STATES, THIS IS WHAT HE GAVE ME. THEN LOOKED AT THE MEDS SHE SPIT OUT, REQUESTED KLONOPIN TWICE. EDUCATED THAT ATIVAN WAS IN THE MEDICATIONS AND THAT IT IS LIKE KLONOPIN. PT CONTINUES TO DECLINE, THEN STATES, I WILL TAKE THE GREEN PILL. PT DUG OUT HALDOL AND TOOK IT. OFFERED JUICE TO TAKE WITH THE REST OF HER MEDIATION AND STATES SHE WOULD. PT TOOK THE BENADRYL BUT THEN SPIT OUT THE ATIVAN. HALDOL AND BENADRYL WAS TAKEN BY PT. ATIVAN WAS WASTED PT CONTINUES TO BE BIZARRE AND UNTRUSTING OF EVERYTHING STAFF SAY. PARANOIA IS OBSERVED WITH EVERY INTERACTION. Original Note: PT IS AGITATED STATING, I DON'T TRUST ANY OF YOU. HR ELEVATED TO 130. OFFERED ZYDIS 5 MG. PT CONTINUES TO YELL, I WANT TO SEE MY DR. I HAVE NOT SEEN MY DOCTOR TODAY. INFORMED PT SHE DID SHE DR. MADDOX THIS AM AND HE HAS EVEN WROTE OUT THE H AND P. PT CONTINUES TO STATE SHE DID NOT SEE THE DR. THIS RN INFOMRED PT THAT SHE DID SEE THE DR. THIS RN HAD SEEN HER SPEAK TO HIM. PT CONTINUES TO REQUEST THE DATE. WHEN TOLD IT IS THURSDAY, PT STATES, YOU'RE ALL LYING IT'S THURSDAY. ITS THURSDAY. OFFERED ZYDIS AGAIN AND CONTINUES TO DECLINE. PT THEN TOLD FELT STRIP FINISHER SHE WOULD TAKE WHAT THEY GAVE HER IN ER. WHEN RECORD PULLED NO MEDS WERE GIVEN IN ER. PT STATES SHE WOULD LIKE A SHOT BUT WOULD TAKE MEDICATIONS BY MOUTH. ORAL B52 ADMINISTERED ORDERED.
[2022-04-05] MEDS: diphenhydrAMINE 50 mg Capsule PO (15:54)
[2022-04-05] MEDS: haloperidol 5 mg Tablet PO (15:54)
[2022-04-05] MEDS: nicotine 2 mg Gum BUCCAL (15:55)
[2022-04-05] MEDS: nicotine 21 mg Patch 1 PATCH TRANSDERMA (18:11)
[2022-04-05 19:57] VITALS: BP 102/69; PULSE 101; RESP 18; TEMP 37.1; O2SAT 100
[2022-04-05] MEDS: OLANZapine 5 mg ODT PO (23:08)
[2022-04-06 06:00] VITALS: BP 94/69; PULSE 76; RESP 18; TEMP 36.4; O2SAT 99
--- NOTE | 2022-04-06 11:34 | W.PM.NPUPNS ---
Subjective NPU Subjective: Patient is in her bed at 1130 with her head covered. She said that she was fine. She refused to talk with me. Below is the note from her being agitated yesterday and attempted to get her to take an oral B-52. PT IS AGITATED STATING, I DON'T TRUST ANY OF YOU. HR ELEVATED TO 130. OFFERED ZYDIS 5 MG. PT CONTINUES TO YELL, I WANT TO SEE MY DR. I HAVE NOT SEEN MY DOCTOR TODAY. INFORMED PT SHE DID SHE DR. MADDOX THIS AM AND HE HAS EVEN WROTE OUT THE H AND P. PT CONTINUES TO STATE SHE DID NOT SEE THE DR. THIS RN INFOMRED PT THAT SHE DID SEE THE DR. THIS RN HAD SEEN HER SPEAK TO HIM. PT CONTINUES TO REQUEST THE DATE. WHEN TOLD IT IS THURSDAY, PT STATES, YOU'RE ALL LYING IT'S THURSDAY. ITS THURSDAY. OFFERED ZYDIS AGAIN AND CONTINUES TO DECLINE. PT THEN TOLD GARNETT MACHINE OPERATOR HELPER SHE WOULD TAKE WHAT THEY GAVE HER IN ER. WHEN RECORD PULLED NO MEDS WERE GIVEN IN ER. PT STATES SHE WOULD LIKE A SHOT BUT WOULD TAKE MEDICATIONS BY MOUTH. ORAL B52 ADMINISTERED ORDERED. ATTEMPTED TO GIVE ORAL B52, PT SPIT OUT MEDIATIONS AND STATES, THIS IS WHAT HE GAVE ME. THEN LOOKED AT THE MEDS SHE SPIT OUT, REQUESTED KLONOPIN TWICE. EDUCATED THAT ATIVAN WAS IN THE MEDICATIONS AND THAT IT IS LIKE KLONOPIN. PT CONTINUES TO DECLINE, THEN STATES, I WILL TAKE THE GREEN PILL. PT DUG OUT HALDOL AND TOOK IT. OFFERED JUICE TO TAKE WITH THE REST OF HER MEDIATION AND STATES SHE WOULD. PT TOOK THE BENADRYL BUT THEN SPIT OUT THE ATIVAN. HALDOL AND BENADRYL WAS TAKEN BY PT. ATIVAN WAS WASTED PT CONTINUES TO BE BIZARRE? AND UNTRUSTING OF EVERYTHING STAFF SAY. PARANOIA IS OBSERVED WITH EVERY INTERACTION. She wrote a note last night and handed it to the security system administrator. It said that she had a nightmare that her dog and no one was with him. She also said that she apologized for the destruction of [place] [employer] property. Mental Status Exam MSE Comments: This is a thin 24-year-old female who appears approximately her stated age and is in no acute distress.? She was found in bed at 11:30 AM. She did not uncover her head or sit up for an interview. psychomotor activity is mildly decreased. Speech is at a regular rate and rhythm, normal volume, good articulation, not pressured. Alert, oriented X3 Attention and concentration appear to be normal. Memory is intact Mood is good.? Affect is subdued.? Thought process is logical and goal-directed. Thought content:? Denies auditory and visual hallucinations.? No delusions or paranoia are noted.? No current suicidal ideation.? He denies homicidal ideation.? Fund of knowledge is probably average. Insight and judgment appear to be poor. Impulse control is very poor. Cognition: Patient Appearance: Disheveled/Poor Hygiene and No Eye Contact Level of Consciousness: Awake Patient Cognition Impaired: Yes Ability to Follow Directions: Poor Patient Orientation (long list): Person Comprehension Ability: Moderate Impairment Hallucination Type: None Delusion Description: Persecutory and Somatic Thought Process: Disorganized Affect: Affect Description: Calm, Depressed, Flat and Guarded Behavior: Patient Behavior: Appropriate and Withdrawn Speech Pattern: Clear Vitals/I&O/Wt Last Vital Signs Temp 97.5 F L 04/06/22 06:00 Pulse 76 04/06/22 06:00 Resp 18 04/06/22 06:00 BP 94/69 04/06/22 06:00 Pulse Ox 99 04/06/22 06:00 Data NPU : 04/04/22 13:50 04/04/22 13:50 Micro: Microbiology 04/04/22 13:08 Urine Culture - Final Urine,Clean Catch Escherichia coli Microbiology 04/04/22 13:08 Urine,Clean Catch Urine Culture - Final Escherichia coli A&P Assessment and plan (1) Drug-induced psychotic disorder: Status: Acute (2) Methamphetamine abuse: Status: Acute Plan This is a 26-year-old female who presents psychotic probably because of methamphetamine intoxication. We will start regular Zyprexa since the paranoia and delusions do not seem to be clearing as the methamphetamine gets out of her system. Plan: 1. Start Zyprexa 10 mg at bedtime along with as needed medications. 2. Continue every 15 minute checks for safety. 3. Encourage individual, group and milieu therapies. 4. Encourage sober living treatment after discharge at the highest level of care to which she is willing to commit. 5. We will monitor for safety for herself in the community prior to discharge. Involuntary Hold Information 96 Hour Hold: 96 Hour Involuntary Admission: Yes 96 Hour Hold Ending Date: 04/10/22 96 Hour Hold Ending Time: 18:30 Attestations NPU Medical Necessity Statement*: Inpatient hospitalization is medically necessary and the clinically appropriate intervention at this time. We will initiate medications and make changes as indicated. Coding Level of Care Code Acute Hydrogen Plant Operator for Kyleigh Valadez Diagnoses Drug-induced psychotic disorder F19.959 Methamphetamine abuse F15.10
[2022-04-06 14:00] VITALS: BP 102/66; PULSE 127; RESP 18; TEMP 36.3; O2SAT 96
--- NOTE | 2022-04-06 18:54 | PC.NURSE ---
CONTINUES TO REFUSE MEDICATIONS. WHEN ANGRY AND AGITATED PT CONTINUES TO REFUSE PHARMACEUTICAL INTERVENTION WITH MEDICATIONS. STATES, :I DON'T TRUST ANY OF YOU AND I'VE NEVER SEEN A DRKel INFORMED PT SHE HAS SEEN THE PAST TWO DAYS BUT PT IS UNABLE TO PROCESS ANY INFORMATION
[2022-04-06 20:50] VITALS: BP 100/62; PULSE 99; RESP 18; TEMP 36.6; O2SAT 98
[2022-04-07 06:00] VITALS: RESP 15
[2022-04-07] MEDS: folic acid 1 mg Tablet PO (08:05)
[2022-04-07] MEDS: multivitamin therapeutic Tablet 1 TAB PO (08:05)
[2022-04-07] MEDS: thiamine 100 mg Tablet PO (08:05)
[2022-04-07] MEDS: nicotine 2 mg Gum BUCCAL ×2 (08:07→19:42)
[2022-04-07] MEDS: nicotine 21 mg Patch 1 PATCH TRANSDERMA (10:58)
[2022-04-07 14:00] VITALS: BP 135/74; PULSE 78; RESP 17; TEMP 36.9; O2SAT 98
--- NOTE | 2022-04-07 14:54 | P.NPUPN_ITS ---
Subjective NPU Subjective: She is more coherent than she has been on previous visits. She denies any auditory or visual hallucinations. She denies using methamphetamine but her urinalysis was positive for. She said that she mainly uses alcohol and cocaine. She says that she wants to go to a rehab program for alcohol. She says that if she leaves she would go back to the alcohol. That is her Achilles heel. She was told that she did not bounce back from her psychosis like we had hoped and we are concerned that she is doing permanent damage to her brain with the substances that she is using. She refused the Zyprexa last night. Mental Status Exam MSE Comments: This is a thin 24-year-old female who appears approximately her stated age and is in no acute distress.? She was found in bed at 2 PM. She said she went back to the day room for the interview. psychomotor activity is mildly decreased. Speech is at a regular rate and rhythm, normal volume, good articulation, not pressured. Alert, oriented X3 Attention and concentration appear to be normal. Memory is intact Mood is good.? Affect is subdued.? Thought process is logical and goal-directed. Thought content:? Denies auditory and visual hallucinations.? No delusions or paranoia are noted.? No current suicidal ideation.? He denies homicidal ideation.? Fund of knowledge is probably average. Insight and judgment appear to be poor. Impulse control is very poor. Cognition: Patient Appearance: Disheveled/Poor Hygiene and No Eye Contact Level of Consciousness: Awake Patient Cognition Impaired: Yes Ability to Follow Directions: Poor Patient Orientation (long list): Person, Place, Name, Age and Birthday Comprehension Ability: Moderate Impairment Hallucination Type: None Delusion Description: Persecutory and Somatic Thought Process: Disorganized Affect: Affect Description: Flat Behavior: Patient Behavior: Withdrawn Speech Pattern: Pressured and Rambling Vitals/I&O/Wt Last Vital Signs Temp 98.5 F 04/07/22 14:00 Pulse 78 04/07/22 14:00 Resp 17 04/07/22 14:00 BP 135/74 04/07/22 14:00 Pulse Ox 98 04/07/22 14:00 Data NPU : 04/04/22 13:50 04/04/22 13:50 A&P Assessment and plan (1) Drug-induced psychotic disorder: Status: Acute (2) Methamphetamine abuse: Status: Acute Plan This is a 26-year-old female who presents psychotic probably because of methamphetamine intoxication. We will start regular Zyprexa since the paranoia and delusions do not seem to be clearing as the methamphetamine gets out of her system. Plan: 1. Start Zyprexa 10 mg at bedtime along with as needed medications. 2. Continue every 15 minute checks for safety. 3. Encourage individual, group and milieu therapies. 4. Encourage sober living treatment after discharge at the highest level of care to which she is willing to commit. 5. We will monitor for safety for herself in the community prior to discharge. Involuntary Hold Information 96 Hour Hold: 96 Hour Involuntary Admission: Yes 96 Hour Hold Ending Date: 04/10/22 96 Hour Hold Ending Time: 18:30 Attestations NPU Medical Necessity Statement*: Inpatient hospitalization is medically necessary and the clinically appropriate intervention at this time. We will initiate medications and make changes as indicated. Coding Level of Care Code Acute Anatomic Pathology Manager for Kyleigh Valadez Diagnoses Drug-induced psychotic disorder F19.959 Methamphetamine abuse F15.10
[2022-04-07] MEDS: acetaminophen 325 mg Tablet 650 MG PO (15:34)
[2022-04-07 19:35] VITALS: RESP 20
[2022-04-07] MEDS: sulfamethoxazole-trimeth DS 160-800 mg Tablet 1 TAB PO (20:30)
[2022-04-07] MEDS: OLANZapine 10 mg TABLET PO (20:30)
[2022-04-08 06:00] VITALS: BP 90/53; PULSE 107; RESP 16; TEMP 37; O2SAT 96
--- NOTE | 2022-04-08 06:42 | PC.NURSE ---
04/07/22@1999. This policy writer sales overheard the patient on the phone demanding that someone come and pick her up. The next thing you know there was an older gentleman at the door outside. The patient wanted to see him and thought that he was the one who could discharge her from this unit. The patient kept pleading to be able to speak to the person but it was not visiting hours and she thought she was leaving with him. She stood at the door and looked through the slim window at him. This policy writer sales went to speak to the gentleman whose name is Wade. He called himself a friend. He states he does not know what to do with her as she is so confused when he talks to her on the phone and when he visits she wants to leave and she gets upset. He said that he would be here when she actually does get discharged and he said to tell her that he would visit tomorrow. This policy writer sales explained to the patient that the physician was the only one who could discharge her and she said that she understood. She was very sad and tearful that she could not leave with the man. She continued to be very upset and confused during the conversation.
[2022-04-08] MEDS: folic acid 1 mg Tablet PO (08:36)
[2022-04-08] MEDS: sulfamethoxazole-trimeth DS 160-800 mg Tablet 1 TAB PO ×2 (08:36→20:34)
[2022-04-08] MEDS: multivitamin therapeutic Tablet 1 TAB PO (08:36)
[2022-04-08] MEDS: thiamine 100 mg Tablet PO (08:36)
[2022-04-08 14:00] VITALS: BP 106/65; PULSE 85; RESP 17; TEMP 36.6; O2SAT 96
--- NOTE | 2022-04-08 15:32 | W.PM.NPUPNS ---
Subjective NPU Subjective: She continues to be disorganized in her thinking and confused at times. She denies any auditory or visual hallucinations. She denies using methamphetamine but her urinalysis was positive for. She said that she mainly uses alcohol and cocaine. She says that she wants to go to a rehab program for alcohol. She says that if she leaves she would go back to the alcohol. She was told that she did not bounce back from her psychosis like we had hoped and we are concerned that she is doing permanent damage to her brain with the substances that she is using. She did take the Zyprexa last night. Mental Status Exam MSE Comments: This is a thin 24-year-old female who appears approximately her stated age and is in no acute distress.? She was found in bed at 2 PM. psychomotor activity is mildly decreased. Speech is at a regular rate and rhythm, normal volume, good articulation, not pressured. Alert, oriented X3 Attention and concentration appear to be normal. Memory is intact Mood is good.? Affect is subdued.? Thought process is logical and goal-directed. Thought content:? Denies auditory and visual hallucinations.? No delusions or paranoia are noted.? No current suicidal ideation.? He denies homicidal ideation.? Fund of knowledge is probably average. Insight and judgment appear to be poor. Impulse control is very poor. Cognition: Patient Appearance: Disheveled/Poor Hygiene and No Eye Contact Level of Consciousness: Awake Patient Cognition Impaired: Yes Ability to Follow Directions: Poor Patient Orientation (long list): Person, Place, Name, Age and Birthday Comprehension Ability: Moderate Impairment Hallucination Type: None Delusion Description: Not Present Thought Process: Appropriate and Disorganized Affect: Affect Description: Calm Behavior: Patient Behavior: Cooperative Speech Pattern: Clear Vitals/I&O/Wt Last Vital Signs Temp 98 F 04/08/22 14:00 Pulse 85 04/08/22 14:00 Resp 17 04/08/22 14:00 BP 106/65 04/08/22 14:00 Pulse Ox 96 04/08/22 14:00 Data NPU : 04/04/22 13:50 04/04/22 13:50 A&P Assessment and plan (1) Drug-induced psychotic disorder: Status: Acute (2) Methamphetamine abuse: Status: Acute Plan This is a 26-year-old female who presents psychotic probably because of methamphetamine intoxication. We will start regular Zyprexa since the paranoia and delusions do not seem to be clearing as the methamphetamine gets out of her system. Plan: 1. Start Zyprexa 10 mg at bedtime along with as needed medications. 2. Continue every 15 minute checks for safety. 3. Encourage individual, group and milieu therapies. 4. Encourage sober living treatment after discharge at the highest level of care to which she is willing to commit. 5. We will monitor for safety for herself in the community prior to discharge. Involuntary Hold Information 96 Hour Hold: 96 Hour Involuntary Admission: Yes 96 Hour Hold Ending Date: 04/10/22 96 Hour Hold Ending Time: 18:30 Attestations NPU Medical Necessity Statement*: Inpatient hospitalization is medically necessary and the clinically appropriate intervention at this time. We will initiate medications and make changes as indicated. Coding Level of Care Code Acute Medical Translator for Kyleigh Valadez Diagnoses Drug-induced psychotic disorder F19.959 Methamphetamine abuse F15.10
[2022-04-08 20:13] VITALS: BP 102/68; PULSE 88; RESP 16; TEMP 36.8; O2SAT 97
[2022-04-08] MEDS: OLANZapine 10 mg TABLET PO (20:34)
[2022-04-09 06:00] VITALS: BP 92/61; PULSE 73; RESP 16; TEMP 37.2; O2SAT 96
[2022-04-09] MEDS: sulfamethoxazole-trimeth DS 160-800 mg Tablet 1 TAB PO ×2 (10:19→20:25)
[2022-04-09] MEDS: multivitamin therapeutic Tablet 1 TAB PO (10:20)
[2022-04-09] MEDS: thiamine 100 mg Tablet PO (10:20)
[2022-04-09] MEDS: folic acid 1 mg Tablet PO (10:20)
[2022-04-09 14:00] VITALS: BP 104/69; PULSE 90; RESP 17; TEMP 36.9; O2SAT 98
[2022-04-09 20:11] VITALS: BP 117/76; PULSE 72; RESP 18; TEMP 36.3; O2SAT 100
[2022-04-09] MEDS: OLANZapine 10 mg TABLET PO (20:25)
[2022-04-10 06:00] VITALS: BP 107/70; PULSE 94; RESP 16; TEMP 36.6; O2SAT 97
[2022-04-10] MEDS: thiamine 100 mg Tablet PO (09:52)
[2022-04-10] MEDS: multivitamin therapeutic Tablet 1 TAB PO (09:52)
[2022-04-10] MEDS: sulfamethoxazole-trimeth DS 160-800 mg Tablet 1 TAB PO (09:52)
[2022-04-10] MEDS: folic acid 1 mg Tablet PO (09:52)
--- NOTE | 2022-04-10 11:12 | P.NPUDS_ITS ---
Diagnoses at Discharge Discharge Diagnosis (1) Drug-induced psychotic disorder: Status: Acute (2) Methamphetamine abuse: Status: Acute Reason for Visit Reason for Visit: MHE/96 hour hold Brief History: History of Present Illness Shayla Goss is a 26 year old female admitted through our emergency department with the following report: 26-year-old female presented to the emergency room after being evidently dropped off by an unknown male.? She was behaving erratically and police were called and they arrived she had tangential thinking was not aware of time place or person.? She has a history of substance abuse.? When I came to see the patient she is difficult to engage, she answers questions with tangential thinking and deflects.? She declines to answer questions about suicidal thoughts or ideation.? She repeatedly states that she just needs documentation so that she can get an appointment and see how her day will go.? When I try to follow her line of thinking she is unable to provide any further answers.? We did contact her father who evidently has been estranged from her and could not give us any history.? She does not appear to have any auditory visual hallucinations. Urine drug screen was positive for methamphetamine She says that she woke up yesterday and her lover, Wade, said that she needed to go to the hospital.? He said that she needed mental help.? She says that he must not have liked her mood but she does not really know why he thought that.? They have been together for about 3 months.? She says that he has treated her well up until now.? She says that when he brought her here she was resistant to getting out of the car and he evidently called the police.? The police say that they came and found her walking her dog and was not able to say where she was.? She says that she was in [place] but did not know what states she was in.? She did not know what day it was.? She says that she is worried because she does not know where her dog is.? She thinks that her lover may have made her go to the hospital so that he could get her dog.? She has had her dog for 2 years since it was a puppy.? She is very worried because she does not know where her dog is.? She denies any difficulties with depression, anxiety or mood swings.? She denies using methamphetamine recently.? She has had her last use was 3 or 6 months ago and she never used very much.? She said that she has worked quite a bit in the last year.? She has not worked in the last 3 or 4 months.? She could not really explain that.? She says that she gets subsidized housing and that Marli salgado helps pay her rent.? She gets food stamps.? She says she was working up until about 4 months ago.? Her explanation of not working since then is really difficult to understand.? 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 She said something about the place needed to be cleaned up but nobody else would do it.? She says that she has been living in her current apartment for about 1 year.? She says that her childhood was fine.? She denies any emotional difficulty during her teenage years.? She says that she graduated from high school.? She does not speak much with her mother or father.? The emergency room talk with her father who said that he is estranged from her.? The emergency room doctor told me that it was because of her drug use.? When I asked her about it she had tears in her eyes but did not have an explanation about why she was estranged from her parents.? She says they just do not talk.? She denies having any emotional difficulties.? She denies prior hospitalization.? She denies any mental health treatment.? She denies difficulty with alcohol, marijuana or methamphetamine.? She was informed that she was on a 96-hour hold and that we needed to watch her to make sure that it was safe for her to be released. Hospital Course Hospital Course She slowly acclimated to the individual, group and milieu therapies provided. She was started on Zyprexa 10 mg at bedtime. She was told repeatedly that it seems that she has damaged her brain with her alcohol and drug abuse and she needs to stop so that they can heal as much as possible. tolerated these doses and showed steady improvement during her stay. She was able to contract for safety outside hospital prior to discharge. During the hospitalization, patient had routine laboratory studies which were within normal limits except for few outliers. Additionally there was a general medical evaluation which was also within normal limits and revealed no new acute processes. Discharge Summary: At the time of discharge, lethality was denied and psychosis was resolving. Her thinking continued to be somewhat disorganized. Mood and anxiety were well managed. Patient endorsed a plan to follow-up with the aftercare recommendations of the treatment team. Patient was evaluated and deemed to be absent credible lethality, and had achieved the maximum benefit from an inpatient hospitalization, so was discharged. Involuntary Hold Information 96 Hour Hold: 96 Hour Involuntary Admission: Yes 96 Hour Hold Ending Date: 04/10/22 96 Hour Hold Ending Time: 18:30 Mental Status Exam MSE Comments: This is a thin 24-year-old female who appears approximately her stated age and is in no acute distress.? psychomotor activity is mildly decreased. Speech is at a regular rate and rhythm, normal volume, good articulation, not pressured. Alert, oriented X3 Attention and concentration appear to be normal. Memory is intact Mood is good.? Affect is subdued.? Thought process is logical and goal-directed. Thought content:? Denies auditory and visual hallucinations.? No delusions or paranoia are noted.? No current suicidal ideation.? He denies homicidal ideation.? Fund of knowledge is probably average. Insight and judgment appear to be poor. Impulse control is very poor. Cognition: Patient Appearance: Disheveled/Poor Hygiene Level of Consciousness: Awake Patient Cognition Impaired: Yes Ability to Follow Directions: Poor Patient Orientation (long list): Person, Place, Name, Age and Birthday Comprehension Ability: Moderate Impairment Hallucination Type: None Delusion Description: Not Present Thought Process: Appropriate, Disorganized and Loose Associations Affect: Affect Description: Calm and Depressed Behavior: Patient Behavior: Appropriate and Cooperative Speech Pattern: Appropriate and Clear Discharge Data Studies Completed and Pending: Laboratory Results WBC 9.1 10^3/uL (4.0- 10.0) 04/04/22 13:50 RBC 5.35 10^6/uL (4.1 -5.3) H 04/04/22 13:50 Hgb 16.7 g/dL (11.5-1 5.3) H 04/04/22 13:50 Hct 47.5 % (37.0-47.0 ) H 04/04/22 13:50 MCV 88.8 fl (81-99) 04/04/22 13:50 MCH 31.2 pg (28.0-34. 0) 04/04/22 13:50 MCHC 35.2 g/dL (30.0-3 6.0) 04/04/22 13:50 RDW 12.4 % (12.1-15.1 ) 04/04/22 13:50 Plt Count 412 10^3/cmm (130 -400) H 04/04/22 13:50 MPV 8.4 fL (7.4-10.4) 04/04/22 13:50 Neut % (Auto) 67.3 % 04/04/22 13:50 Lymph % (Auto) 21.9 % 04/04/22 13:50 Woodruff % (Auto) 8.2 % 04/04/22 13:50 Eos % (Auto) 1.8 % 04/04/22 13:50 Baso % (Auto) 0.6 % 04/04/22 13:50 Neut # (Auto) 6.10 10^3/uL (1.8 -7.7) 04/04/22 13:50 Lymph # (Auto) 2.0 10^3/uL (0.8- 4.8) 04/04/22 13:50 Woodruff # (Auto) 0.7 10^3/uL (0.2- 0.9) 04/04/22 13:50 Eos # (Auto) 0.2 10^3/uL (0.0- 0.8) 04/04/22 13:50 Baso # (Auto) 0.1 10^3/uL (0.0- 0.1) 04/04/22 13:50 Nucleated RBC % (a uto) 0 % 04/04/22 13:50 Nucleated RBCs # 0.0 /100WBC 04/04/22 13:50 Sodium 138 mmol/L (136-1 45) 04/04/22 13:50 Potassium 3.6 mmol/L (3.5-5 .1) 04/04/22 13:50 Chloride 99 mmol/L (98-107 ) 04/04/22 13:50 Carbon Dioxide 25 mmol/L (22-29) 04/04/22 13:50 Anion Gap 17.6 (5-19) 04/04/22 13:50 BUN 8 mg/dL (6-20) 04/04/22 13:50 Creatinine 0.8 mg/dL (0.5-0. 9) 04/04/22 13:50 GFR Calculation 86.0 mL/min (90-1 30) L 04/04/22 13:50 Glucose 79 mg/dL (65-115) 04/04/22 13:50 Calculated Osmolal ity 283 mOsm/kg (285- 295) L 04/04/22 13:50 Calcium 9.8 mg/dL (8.5-10 .5) 04/04/22 13:50 Total Bilirubin 0.7 mg/dL (0.15-1 .2) 04/04/22 13:50 AST 18 U/L (0-32) 04/04/22 13:50 ALT 13 U/L (0-33) 04/04/22 13:50 Alkaline Phosphata se 89 IU/L (35-105) 04/04/22 13:50 Total Protein 8.6 g/dL (6.6-8.7 ) 04/04/22 13:50 Albumin 5.1 g/dL (3.5-5.2 ) 04/04/22 13:50 Globulin 3.5 g/dL (1.3-4.6 ) 04/04/22 13:50 HCG, Qual Negative (Negati ve) 04/04/22 13:58 Urine Color Dark yellow (Yel low) 04/04/22 13:08 Urine Appearance Cloudy (CLEAR) 04/04/22 13:08 Urine pH 5 (5-7) 04/04/22 13:08 Ur Specific Gravit y 1.030 (1.005-1.0 30) 04/04/22 13:08 Urine Protein 1+ (Negative) H 04/04/22 13:08 Urine Glucose (UA) Norm (Normal) 04/04/22 13:08 Urine Ketones 1+ (Negative) H 04/04/22 13:08 Urine Blood Trace (Negative) H 04/04/22 13:08 Urine Nitrate Positive (Negati ve) H 04/04/22 13:08 Urine Bilirubin 1+ (Negative) H 04/04/22 13:08 Urine Urobilinogen 4 mg/dL (Negative ) H 04/04/22 13:08 Ur Leukocyte Aruna ase 1+ (Negative) H 04/04/22 13:08 Urine RBC 0-4 /hpf (0-2) H 04/04/22 13:08 Urine WBC 15-25 /hpf (0-5) H 04/04/22 13:08 Ur Squamous Epith Cells 5-10 /hpf (0-5) H 04/04/22 13:08 Amorphous Sediment Not Reportable 04/04/22 13:08 Urine Bacteria 3+ /hpf (NONE) H 04/04/22 13:08 Hyaline Casts 0-4 /lpf H 04/04/22 13:08 Urine Mucus 2+ /hpf 04/04/22 13:08 Salicylates < 0.3 mg/dL (3-10 ) L 04/04/22 13:50 Urine Opiates Scre en Negative ng/mL (N egative) 04/04/22 13:08 Acetaminophen < 5.0 ug/mL (10-3 0) L 04/04/22 13:50 Ur Barbiturates Sc reen Negative ng/mL (N egative) 04/04/22 13:08 Ur Phencyclidine S crn Negative ng/mL (N egative) 04/04/22 13:08 Ur Amphetamines Sc reen Positive ng/mL (N egative) H 04/04/22 13:08 U Benzodiazepines Scrn Negative ng/mL (N egative) 04/04/22 13:08 Urine Cocaine Scre en Negative ng/mL (N egative) 04/04/22 13:08 U Marijuana (THC) Screen Negative ng/mL (N egative) 04/04/22 13:08 Ethyl Alcohol < 10 mg/dL (0-10) 04/04/22 13:50 Vitals: Last Vital Signs Temp 98 F 04/10/22 06:00 Pulse 94 04/10/22 06:00 Resp 16 04/10/22 06:00 BP 107/70 04/10/22 06:00 Pulse Ox 97 04/10/22 06:00 Discharge Plan Discharge Patient Disposition: Home Condition: Stable Prescriptions: New olanzapine 10 mg Tablet 10 mg PO BEDTIME 30 Days Qty: 30 1RF sulfamethoxazole-trimethoprim 800-160 mg Tablet 1 tab PO 0900,2100 8 Days Qty: 16 0RF Discharge Orders: Discharge Order (Routine); Ordered 04/10/22 Ordered By: Beau De Leon Discharge Diet: Regular Discharge Activity: Resume usual activity Patient Instructions: Opioid Safety Discharge Attestations NPU Time Spent in Discharge Care*: less than 30 min Specific Discharge Activities: Specific discharge activities: educating patient, discussing with catalytic case operator/social workers/dc planners, documenting/other paperwork and evaluating patient/reviewing data Coding Level of Care Code Acute Chg FW DC note Diagnoses Drug-induced psychotic disorder F19.959 Methamphetamine abuse F15.10
[2022-04-10 11:33] VITALS: BP 107/70; PULSE 94; RESP 16; TEMP 36.6; O2SAT 97
--- NOTE | 2022-04-12 13:01 | W.PM.NPUPNS ---
Subjective NPU Subjective: She continues to be disorganized in her thinking and confused at times. She denies any auditory or visual hallucinations. She denies using methamphetamine but her urinalysis was positive for. She said that she mainly uses alcohol and cocaine. She says that she wants to go to a rehab program for alcohol. She says that if she leaves she would go back to the alcohol. She was told that she did not bounce back from her psychosis like we had hoped and we are concerned that she is doing permanent damage to her brain with the substances that she is using. She did take the Zyprexa last night. Mental Status Exam MSE Comments: This is a thin 24-year-old female who appears approximately her stated age and is in no acute distress.? psychomotor activity is mildly decreased. Speech is at a regular rate and rhythm, normal volume, good articulation, not pressured. Alert, oriented X3 Attention and concentration appear to be normal. Memory is intact Mood is good.? Affect is subdued.? Thought process is logical and goal-directed. Thought content:? Denies auditory and visual hallucinations.? No delusions or paranoia are noted.? No current suicidal ideation.? He denies homicidal ideation.? Fund of knowledge is probably average. Insight and judgment appear to be poor. Impulse control is very poor. Cognition: Patient Appearance: Disheveled/Poor Hygiene Level of Consciousness: Awake, Alert, Appropriate and Follows Commands Patient Cognition Impaired: Yes Ability to Follow Directions: Poor Patient Orientation (long list): Person, Place, Name, Age and Birthday Comprehension Ability: Moderate Impairment Hallucination Type: None Delusion Description: Not Present Thought Process: Appropriate, Disorganized and Loose Associations Affect: Affect Description: Calm and Depressed Behavior: Patient Behavior: Appropriate and Cooperative Speech Pattern: Appropriate and Clear Vitals/I&O/Wt Last Vital Signs Temp 98 F 04/10/22 11:33 Pulse 94 04/10/22 11:33 Resp 16 04/10/22 11:33 BP 107/70 04/10/22 11:33 Pulse Ox 97 04/10/22 11:33 Data NPU : 04/04/22 13:50 04/04/22 13:50 A&P Assessment and plan (1) Drug-induced psychotic disorder: Status: Acute (2) Methamphetamine abuse: Status: Acute Plan This is a 26-year-old female who presents psychotic probably because of methamphetamine intoxication. We will start regular Zyprexa since the paranoia and delusions do not seem to be clearing as the methamphetamine gets out of her system. Plan: 1. Start Zyprexa 10 mg at bedtime along with as needed medications. 2. Continue every 15 minute checks for safety. 3. Encourage individual, group and milieu therapies. 4. Encourage sober living treatment after discharge at the highest level of care to which she is willing to commit. 5. We will monitor for safety for herself in the community prior to discharge. Involuntary Hold Information 96 Hour Hold: 96 Hour Involuntary Admission: Yes 96 Hour Hold Ending Date: 04/10/22 96 Hour Hold Ending Time: 18:30 Attestations NPU Medical Necessity Statement*: Inpatient hospitalization is medically necessary and the clinically appropriate intervention at this time. We will initiate medications and make changes as indicated. Coding Level of Care Code Acute Nitroglycerin Nitrator Operator Batch for Kyleigh Valadez Diagnoses Drug-induced psychotic disorder F19.959 Methamphetamine abuse F15.10
== END 2022-04-10 12:01 | disposition home or self-care (01) | DRG 897 ==
LOC: ER 13:21 → NP 17:59
PROVIDERS: Admitting Provider Psychiatry & Neurology Psychiatry; Emergency Provider Family Medicine; Visit Provider Psychiatry & Neurology Psychiatry
DX: F15.159 Other stimulant abuse with stimulant-induced psychotic disorder, unspecified (principal); F17.200 Nicotine dependence, unspecified, uncomplicated; F10.10 Alcohol abuse, uncomplicated
CPT/HCPCS: 80053; 80306; 80307; 81001; 81025; 85025; 87077; 87086; 87186; 96372; 97150; 97165; 99285; J1200; J2060; Q0163

== ENCOUNTER 2022-04-14 15:32 | Inpatient (IN) | payer MEDICAID, SELFPAY ==
--- NOTE | 2022-04-14 15:35 | W.ED.PSYCHS ---
HPI - Psych General: Stated Complaint: PSYCH Time Seen by Provider: 04/14/22 15:34 PFSH ED PFSH: Family History Other CAD (coronary artery disease) Social History Smoking and tobacco status: current every day smoker Alcohol intake: never Discharge Plan Discharge Condition: Stable Prescriptions: No Action olanzapine 10 mg Tablet 10 mg PO BEDTIME 30 Days Qty: 30 1RF sulfamethoxazole-trimethoprim 800-160 mg Tablet 1 tab PO 0900,2100 8 Days Qty: 16 0RF Coding Level of Care Code ED Wax Pattern Assembler for Kyleigh Valadez
--- NOTE | 2022-04-14 15:36 | ED.C_ITS ---
Documented by User: MATI Valdes 04/14/22 16:11 HPI - Psych General: Chief Complaint: Psychiatric Symptoms Stated Complaint: PSYCH Time Seen by Provider: 04/14/22 15:34 Source: patient and EMS Mode of arrival: EMS Limitations: altered mental status History of Present Illness: Patient is a 26-year-old female who presents to the ED today escorted by police with a 96-hour hold. Police state they were dispatched to patient's residence and state that patient was acting bizarre and erratically. Patient was seen in our facility recently and admitted to NPU for drug-induced psychosis. Upon my initial examination it is difficult to elicit any type of history from her as her speech is bizarre and tangential. complaint: other (psychosis) Review of Systems General: Reports: ROS unobtainable due to medical condition and ROS unobtainable due to mental status [facility] ED PFSH: Medical History Drug-induced psychotic disorder Surgical History Surgical history unknown Family History Other CAD (coronary artery disease) Social History Smoking and tobacco status: current every day smoker Alcohol intake: never Physical Exam Const: COMMON NORMALS: alert EXAM LIMITATIONS: altered mental status (psychosis) GENERAL APPEARANCE: disheveled and appears older than stated age ORIENTATION/CONSCIOUSNESS: Yes awake, Yes oriented to person and Yes oriented to place HENMT: COMMON NORMALS: normocephalic and atraumatic HEAD & SCALP: normal to inspection, normocephalic and atraumatic Resp: COMMON NORMALS: normal respiratory effort and clear to auscultation bilaterally AUSCULTATION: clear to auscultation bilaterally Cardio: COMMON NORMALS: regular rhythm RATE: tachycardic RHYTHM: regular rhythm Neuro: SENSORIUM/ORIENTATION: Yes alert, Yes oriented to person and Yes oriented to place Psych: COMMON NORMALS: speech normal APPEARANCE: Yes disheveled ATTI TUDE: Yes bizarre SPEECH: Yes normal speech THOUGHT PROCESS: disorganized and Illogical thought process present INSIGHT: Poor insight present (Psych) JUDGEMENT: Poor judgement present (Psych) Course ED course: Shortly after my initial examination patient became extremely irate and verbally aggressive-yelling screaming at staff members. Police officers as well as [facility] security in room now. Care will be transferred to Dr. Chaudhry Vital Signs: Vital signs: Vital Signs Temperature 98.2 F 04/14/22 15:38 Pulse Rate 98 04/14/22 20:38 Respiratory Rate 18 04/14/22 20:38 Blood Pressure 109/78 04/14/22 20:38 Pulse Oximetry 94 04/14/22 20:38 MDM - Psych Lab Data : 04/14/22 16:45 04/14/22 16:45 Laboratory Results WBC 9.6 10^3/uL (4.0-10.0) 04/14/22 16:45 RBC 4.19 10^6/uL (4.1-5.3) 04/14/22 16:45 Hgb 13.1 g/dL (11.5-15.3) 04/14/22 16:45 Hct 36.6 % (37.0-47.0) L 04/14/22 16:45 MCV 87.4 fl (81-99) 04/14/22 16:45 MCH 31.3 pg (28.0-34.0) 04/14/22 16:45 MCHC 35.8 g/dL (30.0-36.0) 04/14/22 16:45 RDW 11.9 % (12.1-15.1) L 04/14/22 16:45 Plt Count 368 10^3/cmm (130-400) 04/14/22 16:45 MPV 8.7 fL (7.4-10.4) 04/14/22 16:45 Neut % (Auto) 66.7 % 04/14/22 16:45 Lymph % (Auto) 25.5 % 04/14/22 16:45 [place] % (Auto) 5.3 % 04/14/22 16:45 Eos % (Auto) 1.8 % 04/14/22 16:45 Baso % (Auto) 0.5 % 04/14/22 16:45 Neut # (Auto) 6.38 10^3/uL (1.8-7.7) 04/14/22 16:45 Lymph # (Auto) 2.4 10^3/uL (0.8-4.8) 04/14/22 16:45 [place] # (Auto) 0.5 10^3/uL (0.2-0.9) 04/14/22 16:45 Eos # (Auto) 0.2 10^3/uL (0.0-0.8) 04/14/22 16:45 Baso # (Auto) 0.1 10^3/uL (0.0-0.1) 04/14/22 16:45 Nucleated RBC % (auto) 0 % 04/14/22 16:45 Nucleated RBCs # 0.0 /100WBC 04/14/22 16:45 Sodium 144 mmol/L (136-145) 04/14/22 16:45 Potassium 3.7 mmol/L (3.5-5.1) 04/14/22 16:45 Chloride 108 mmol/L (98-107) H 04/14/22 16:45 Carbon Dioxide 24 mmol/L (22-29) 04/14/22 16:45 Anion Gap 15.7 (5-19) 04/14/22 16:45 BUN 9 mg/dL (6-20) 04/14/22 16:45 Creatinine 0.6 mg/dL (0.5-0.9) 04/14/22 16:45 GFR Calculation 119.9 mL/min (90-130) 04/14/22 16:45 Glucose 80 mg/dL (65-115) 04/14/22 16:45 Calculated Osmolality 296 mOsm/kg (285-295) H 04/14/22 16:45 Calcium 8.2 mg/dL (8.5-10.5) L 04/14/22 16:45 Total Bilirubin 0.2 mg/dL (0.15-1.2) 04/14/22 16:45 AST 21 U/L (0-32) 04/14/22 16:45 ALT 17 U/L (0-33) 04/14/22 16:45 Alkaline Phosphatase 61 IU/L (35-105) 04/14/22 16:45 Total Protein 7.0 g/dL (6.6-8.7) 04/14/22 16:45 Albumin 4.0 g/dL (3.5-5.2) 04/14/22 16:45 Globulin 3.0 g/dL (1.3-4.6) 04/14/22 16:45 HCG, Qual Negative (Negative) 04/14/22 16:45 Salicylates < 0.3 mg/dL (3-10) L 04/14/22 16:45 Acetaminophen < 5.0 ug/mL (10-30) L 04/14/22 16:45 Ethyl Alcohol 136 mg/dL (0-10) H 04/14/22 16:45 Discharge Plan Discharge Patient Disposition: Admitted As Inpatient Admit Provider: Beau De Leon Clinical Impression: Acute psychosis, Alcohol intoxication Condition: Stable Sign Out Sign Out Data: Patient Sign Out occurred on 04/14/22 at 16:12. Patient's care was discussed, and care was transferred from to Dm Chaudhry MD. Coding Level of Care Code ED Landscape Drafter for Chg Fwd Exam Detailed Documented by User: Dm Chaudhry MD 04/15/22 00:36 HPI - Psych General: Chief Complaint: Psychiatric Symptoms Stated Complaint: PSYCH Time Seen by Provider: 04/14/22 15:34 PFSH ED PFSH: Medical History Drug-induced psychotic disorder Surgical History Surgical history unknown Family History Other CAD (coronary artery disease) Social History Smoking and tobacco status: current every day smoker Alcohol intake: never Course ED course: Shortly after my initial examination patient became extremely irate and verbally aggressive-yelling screaming at staff members. Police officers as well as [facility] security in room now. Care will be transferred to Dr. Chaudhry - Patient was seen and evaluated by me at bedside after discussion with MATI Valdes. I have reviewed documentation and agree as documented. History and review of systems limited secondary to mental status/psychiatric condition. - Vital signs obtained - Initial evaluation notable for patient combative and verbally aggressive. She did not respond well to verbal de-escalation techniques and chemical restraints were ordered. Desired therapeutic effect achieved - Labs personally interpreted by me - Labs notable for - Upon serial reexamination after treatment the patient was mildly improved. I did attempt to further clarify clinical history however the patient's insight and judgment continues to be poor and she provides limited additional history. - Based on patient history, evaluation, and testing as interpreted the most likely cause of the patient's condition is acute psychosis, alcohol intoxication, possible other substance ingestion - Given patient's mental status and behavior 96-hour paperwork filed. - Discussed case with Dr. De Leon of the psychiatry service who will admit the patient to the Neuropsych Unit -Based on ED evaluation at this point there is no obvious condition that would preclude the patient from inpatient management of psychiatric concerns. - Patient was admitted without further deterioration or significant events. Note: Click bubbles or prepopulated antoine in note writing are used for assistance with data collection and billing and are inherently more limited than narrative and other text portions of this note. Please use narrative for additional clinical history and defer to narrative/free test for any case of contradictory information. If information appears in only free text or click bubble it should be considered present or absent as reported. Please contact note assembly instructions writer for clarifications of clinical information or contradictory information. MDM is a brief summary, contradictory or erroneous seeming information should be clarified and full note should be reviewed. Vital Signs: Vital signs: Vital Signs Temperature 98.2 F 04/14/22 15:38 Pulse Rate 98 04/14/22 20:38 Respiratory Rate 18 04/14/22 20:38 Blood Pressure 109/78 04/14/22 20:38 Pulse Oximetry 94 04/14/22 20:38 MDM - Psych Medical Decision Making 26-year-old lady presenting via law enforcement with psychotic behavior. Recent history of substance induced psychiatric symptoms requiring hospitalization. Limited history provided. Given escalating behavior and combativeness Haldol and Ativan ordered with desired therapeutic effect. Improved upon reassessment though still limited insight and judgment. Admitted under 96-hour hold for further management and reassessment. Lab Data : 04/14/22 16:45 04/14/22 16:45 Laboratory Results WBC 9.6 10^3/uL (4.0-10.0) 04/14/22 16:45 RBC 4.19 10^6/uL (4.1-5.3) 04/14/22 16:45 Hgb 13.1 g/dL (11.5-15.3) 04/14/22 16:45 Hct 36.6 % (37.0-47.0) L 04/14/22 16:45 MCV 87.4 fl (81-99) 04/14/22 16:45 MCH 31.3 pg (28.0-34.0) 04/14/22 16:45 MCHC 35.8 g/dL (30.0-36.0) 04/14/22 16:45 RDW 11.9 % (12.1-15.1) L 04/14/22 16:45 Plt Count 368 10^3/cmm (130-400) 04/14/22 16:45 MPV 8.7 fL (7.4-10.4) 04/14/22 16:45 Neut % (Auto) 66.7 % 04/14/22 16:45 Lymph % (Auto) 25.5 % 04/14/22 16:45 [place] % (Auto) 5.3 % 04/14/22 16:45 Eos % (Auto) 1.8 % 04/14/22 16:45 Baso % (Auto) 0.5 % 04/14/22 16:45 Neut # (Auto) 6.38 10^3/uL (1.8-7.7) 04/14/22 16:45 Lymph # (Auto) 2.4 10^3/uL (0.8-4.8) 04/14/22 16:45 [place] # (Auto) 0.5 10^3/uL (0.2-0.9) 04/14/22 16:45 Eos # (Auto) 0.2 10^3/uL (0.0-0.8) 04/14/22 16:45 Baso # (Auto) 0.1 10^3/uL (0.0-0.1) 04/14/22 16:45 Nucleated RBC % (auto) 0 % 04/14/22 16:45 Nucleated RBCs # 0.0 /100WBC 04/14/22 16:45 Sodium 144 mmol/L (136-145) 04/14/22 16:45 Potassium 3.7 mmol/L (3.5-5.1) 04/14/22 16:45 Chloride 108 mmol/L (98-107) H 04/14/22 16:45 Carbon Dioxide 24 mmol/L (22-29) 04/14/22 16:45 Anion Gap 15.7 (5-19) 04/14/22 16:45 BUN 9 mg/dL (6-20) 04/14/22 16:45 Creatinine 0.6 mg/dL (0.5-0.9) 04/14/22 16:45 GFR Calculation 119.9 mL/min (90-130) 04/14/22 16:45 Glucose 80 mg/dL (65-115) 04/14/22 16:45 Calculated Osmolality 296 mOsm/kg (285-295) H 04/14/22 16:45 Calcium 8.2 mg/dL (8.5-10.5) L 04/14/22 16:45 Total Bilirubin 0.2 mg/dL (0.15-1.2) 04/14/22 16:45 AST 21 U/L (0-32) 04/14/22 16:45 ALT 17 U/L (0-33) 04/14/22 16:45 Alkaline Phosphatase 61 IU/L (35-105) 04/14/22 16:45 Total Protein 7.0 g/dL (6.6-8.7) 04/14/22 16:45 Albumin 4.0 g/dL (3.5-5.2) 04/14/22 16:45 Globulin 3.0 g/dL (1.3-4.6) 04/14/22 16:45 HCG, Qual Negative (Negative) 04/14/22 16:45 Salicylates < 0.3 mg/dL (3-10) L 04/14/22 16:45 Acetaminophen < 5.0 ug/mL (10-30) L 04/14/22 16:45 Ethyl Alcohol 136 mg/dL (0-10) H 04/14/22 16:45 Discharge Plan Discharge Patient Disposition: Admitted As Inpatient Admit Provider: Beau De Leon Clinical Impression: Acute psychosis, Alcohol intoxication Condition: Stable Sign Out Sign Out Data: Patient Sign Out occurred on 04/14/22 at 16:12. Patient's care was discussed, and care was transferred from to Dm Chaudhry MD. Coding Level of Care Code ED Landscape Drafter for Kyleigh Fwd Exam Detailed
[2022-04-14 15:38] VITALS: TEMP 36.8; BMI 23.8
--- NOTE | 2022-04-14 15:54 | PC.NURSE ---
PATIENT IS NOT IN REALITY. 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
--- NOTE | 2022-04-14 16:10 | PC.PHAR ---
pt unable to verify medications-medications entered are meds that shows has been filled recently on ext med history
--- NOTE | 2022-04-14 16:31 | PC.NURSE ---
SABA- [phone] (MOTHER) RUSTAM- [phone] (FATHER)
[2022-04-14 16:59] LABS: Basophils # 0.1 10^3/uL (0.0-0.1); Basophils % 0.5 %; Eosinophils # 0.2 10^3/uL (0.0-0.8); Eosinophils % 1.8 %; Hematocrit 36.6 % (37.0-47.0); Hemoglobin 13.1 g/dL (11.5-15.3); Lymphocytes # 2.4 10^3/uL (0.8-4.8); Lymphocytes % 25.5 %; Mean Corpuscular HGB Conc 35.8 g/dL (30.0-36.0); Mean Corpuscular Hemoglobin 31.3 pg (28.0-34.0); Mean Corpuscular Volume 87.4 fl (81-99); Mean Platelet Volume 8.7 fL (7.4-10.4); Monocytes # 0.5 10^3/uL (0.2-0.9); Monocytes % 5.3 %; Neutrophils # 6.38 10^3/uL (1.8-7.7); Neutrophils % 66.7 %; Nucleated Red Blood Cells % 0 %; Platelet Count 368 10^3/cmm (130-400); Red Blood Count 4.19 10^6/uL (4.1-5.3); Red Cell Distribution Width 11.9 % (12.1-15.1); White Blood Count 9.6 10^3/uL (4.0-10.0)
[2022-04-14 17:15] LABS: Alanine Aminotransferase 17 U/L (0-33); Alcohol Level 136 mg/dL (0-10); Alkaline Phosphatase 61 IU/L (35-105); Anion Gap 15.7 (5-19); Aspartate Amino Transferase 21 U/L (0-32); Blood Urea Nitrogen 9 mg/dL (6-20); Calcium 8.2 mg/dL (8.5-10.5); Carbon Dioxide 24 mmol/L (22-29); Chloride 108 mmol/L (98-107); Glomerular Filtration Rate 119.9 mL/min (90-130); Glucose 80 mg/dL (65-115); HCG, Serum Qual Negative (Negative); Osmolality Calculated 296 mOsm/kg (285-295); Potassium 3.7 mmol/L (3.5-5.1); Sodium 144 mmol/L (136-145); Total Bilirubin 0.2 mg/dL (0.15-1.2)
[2022-04-14 17:29] LABS: Acetaminophen < 5.0 ug/mL (10-30); Salicylate < 0.3 mg/dL (3-10)
[2022-04-14] MEDS: LORazepam 2 mg/mL INJ 1 mL IM (18:53)
[2022-04-14] MEDS: haloperidol inj 5 mg/mL INJ 1 mL IM (18:53)
--- NOTE | 2022-04-14 20:05 | PC.NURSE ---
report called to Fawad WALLACE
[2022-04-14 20:38] VITALS: BP 109/78; PULSE 98; RESP 18; O2SAT 94
[2022-04-14 21:09] VITALS: BMI 21.7
[2022-04-14 21:50] LABS: Amphetamines Screen Urine Negative (Negative); Barbiturates Screen Urine Negative (Negative); Benzodiazepines Screen Urine Positive (Negative); Cocaine Screen Urine Negative (Negative); Opiate Screen Urine Negative (Negative); PCP Screen Urine Negative (Negative); THC Screen Urine Positive (Negative)
--- NOTE | 2022-04-14 21:50 | PC.ADMIT ---
Admission Note: Patient is a 26-year-old female who presents to the ED today escorted by police with a 96-hour hold. Police state they were dispatched to patient's residence and state that patient was acting bizarre and erratically. Patient was seen in our facility recently and admitted to NPU for drug-induced psychosis. Upon my initial examination it is difficult to elicit any type of history from her as her speech is bizarre and tangential. Once on the unit the patient is calm and cooperative. She provided a urine sample. She only remembers getting out of a vehicle, the broke beater came and she said she was put face down on the ground and handcuffed. She doesn't know why. The patient,Shayla Goss,26 y/o, was given written information regarding hospital policies, unit procedures and contact persons. Patient's smoking status: current every day smoker. Vital Signs - 8 hr 04/14/22 15:38 04/14/22 20:38 Temperature 98.2 F Pulse Rate 98 Respiratory Rate 18 Blood Pressure 109/78 Pulse Oximetry 94
[2022-04-15 06:00] VITALS: BP 106/67; PULSE 81; RESP 16; TEMP 36.2; O2SAT 97
--- NOTE | 2022-04-15 08:48 | W.PM.NPUH&PS ---
Providers/Chief Complaint Admitting Physician: Beau De Leon MD Chief Complaint: PSYCH HPI NPU History of Present Illness Shayla Goss is a 26 year old female admitted through our emergency department with the following report: Patient is a 26-year-old female who presents to the ED today escorted by police with a 96-hour hold.? Police state they were dispatched to patient's residence and state that patient was acting bizarre and erratically.? Patient was seen in our facility recently and admitted to NPU for drug-induced psychosis.? Upon my initial examination it is difficult to elicit any type of history from her as her speech is bizarre and tangential. complaint: other (psychosis) Affidavit: On April 14, 2022 officers were dispatched to [address] [place] [address] for reported physical disturbance.? I arrived on the scene and observed to officers struggling with Ms. Prabhakar because she was handcuffed.? Ms. Dumont is cuffs were loose and had not yet been double lock.? Ms. Goss was rambling and another language that did not make sense and appeared to be gibberish.? Ms. Goss continued sitting in, rambling on about her professional appearance and she did not make sense.? Wolfgang could not answer questions and she continued to ramble and make odd noises. She was difficult to talk to because she was in bed and did not want to wake up. She says that she is here because people with cars do not know where to draw people off . I could not get from her where she wanted to be or whether she was dropped off. She said that she was dropped off for the police were. The police said that they found her at her residence. She denies any problems before the police wrestled her to the ground. She is now in pain because of being wrestled to the ground. She denies any alcohol, marijuana or methamphetamine abuse recently. Her urine drug screen was positive for benzodiazepines and marijuana. Below as per discharge summary from when she was here last month: Discharge Diagnosis (1) Drug-induced psychotic disorder: ?Status:?Acute (2) Methamphetamine abuse: ?Status:?Acute MHE/96 hour hold? Brief History: History of Present Illness Shayla Goss is a 26 year old female admitted through our emergency department with the following report: 26-year-old female presented to the emergency room after being evidently dropped off by an unknown male.? She was behaving erratically and police were called and they arrived she had tangential thinking was not aware of time place or person.? She has a history of substance abuse.? When I came to see the patient she is difficult to engage, she answers questions with tangential thinking and deflects.? She declines to answer questions about suicidal thoughts or ideation.? She repeatedly states that she just needs documentation so that she can get an appointment and see how her day will go.? When I try to follow her line of thinking she is unable to provide any further answers.? We did contact her father who evidently has been estranged from her and could not give us any history.? She does not appear to have any auditory visual hallucinations. Urine drug screen was positive for methamphetamine She says that she woke up yesterday and her lover, Wade, said that she needed to go to the hospital.? He said that she needed mental help.? She says that he must not have liked her mood but she does not really know why he thought that.? They have been together for about 3 months.? She says that he has treated her well up until now.? She says that when he brought her here she was resistant to getting out of the car and he evidently called the police.? The police say that they came and found her walking her dog and was not able to say where she was.? She says that she was in [place] but did not know what states she was in.? She did not know what day it was.? She says that she is worried because she does not know where her dog is.? She thinks that her lover may have made her go to the hospital so that he could get her dog.? She has had her dog for 2 years since it was a puppy.? She is very worried because she does not know where her dog is.? She denies any difficulties with depression, anxiety or mood swings.? She denies using methamphetamine recently.? She has had her last use was 3 or 6 months ago and she never used very much.? She said that she has worked quite a bit in the last year.? She has not worked in the last 3 or 4 months.? She could not really explain that.? She says that she gets subsidized housing and that [place] naomi helps pay her rent.? She gets food stamps.? She says she was working up until about 4 months ago.? Her explanation of not working since then is really difficult to understand.? 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 She said something about the place needed to be cleaned up but nobody else would do it.? She says that she has been living in her current apartment for about 1 year.? She says that her childhood was fine.? She denies any emotional difficulty during her teenage years.? She says that she graduated from high school.? She does not speak much with her mother or father.? The emergency room talk with her father who said that he is estranged from her.? The emergency room doctor told me that it was because of her drug use.? When I asked her about it she had tears in her eyes but did not have an explanation about why she was estranged from her parents.? She says they just do not talk.? She denies having any emotional difficulties.? She denies prior hospitalization.? She denies any mental health treatment.? She denies difficulty with alcohol, marijuana or methamphetamine.? She was informed that she was on a 96-hour hold and that we needed to watch her to make sure that it was safe for her to be released. Hospital Course Hospital Course She slowly acclimated to the individual, group and milieu therapies provided.? She was started on Zyprexa 10 mg at bedtime.? She was told repeatedly that it seems that she has damaged her brain with her alcohol and drug abuse and she needs to stop so that they can heal as much as possible.? tolerated these doses and showed steady improvement during her stay.? ? She was able to contract for safety outside hospital prior to discharge.? During the hospitalization, patient had routine laboratory studies which were within normal limits except for few outliers.? Additionally there was a general medical evaluation which was also within normal limits and revealed no new acute processes. Discharge Summary: At the time of discharge, lethality was denied and psychosis was resolving.? Her thinking continued to be somewhat disorganized.? Mood and anxiety were well managed.? Patient endorsed a plan to follow-up with the aftercare recommendations of the treatment team.? Patient was evaluated and deemed to be absent credible lethality, and had achieved the maximum benefit from an inpatient hospitalization, so was discharged. Prescriptions: New ? olanzapine 10 mg Tablet ?? 10 mg PO BEDTIME 30 Days Qty: 30 1RF ? sulfamethoxazole-trimethoprim 800-160 mg Tablet ?? 1 tab PO 0900,2100 8 Days Qty: 16 0RF Meds NPU Home Medications Medication Instructions Recorded Confirmed Last Taken Type olanzapine 10 mg tablet 10 mg PO BEDTIME 30 Days #30 tab 04/10/22 04/14/22 04/13/22 Rx sulfamethoxazole 800 1 tab PO BID@0900,2100 04/14/22 04/14/22 04/13/22 History mg-trimethoprim 160 mg tablet Allergies Allergy/AdvReac Type Severity Reaction Status Date / Time No Known Allergies Allergy Verified 04/14/22 15:38 PFSH NPU PFSH: Medical History Drug-induced psychotic disorder Surgical History Surgical history unknown Family History Other CAD (coronary artery disease) Social History Smoking and tobacco status: current every day smoker Alcohol intake: never Mental Status Exam MSE Comments: this is a 26-year-old Appropriate weight female who appears approximately her stated age and in no acute distress. She is in bed and very drowsy. She had difficulty answering questions. She is poorly hospital scrubs. psychomotor activity significantly decreased. Speech is at a regular rate and rhythm, she did not talk very much but was understandable. Alert, oriented X3 Attention and concentration are decreased. She is having a hard time waking up Memory is intact Mood is okay . Affect is dysphoric. Thought process is logical and goal-directed. Thought content: Denies auditory and visual hallucinations. No delusions or paranoia are noted. No current suicidal ideation. He denies homicidal ideation. Fund of knowledge is below average. Insight and judgment appear to be poor. Impulse control is very poor. Vitals/I&O/Wt Last Vital Signs Temp 97.2 F L 04/15/22 06:00 Pulse 81 04/15/22 06:00 Resp 16 04/15/22 06:00 BP 106/67 04/15/22 06:00 Pulse Ox 97 04/15/22 06:00 Weight last 48 hrs Weight 53.977 kg Weight 58.967 kg Data NPU : 04/14/22 16:45 04/14/22 16:45 A&P Assessment and plan (1) Drug-induced psychotic disorder: Status: Acute (2) Acute psychosis: Status: Acute (3) Alcohol intoxication: Status: Acute (4) Methamphetamine abuse: Status: Acute Plan This is a 26-year-old female who appears to have caused permanent psychosis due to chronic methamphetamine abuse. Plan: 1. Resume Zyprexa 10 mg at bedtime prescribed at the last hospitalization. 2. Continue every 15 minute checks for safety. 3. Encourage individual, group and milieu therapies. 4. Encourage sober living treatment after discharge at the highest level of care to which she is willing to commit. 5. We will monitor for safety for herself in the community prior to discharge. Involuntary Hold Information 96 Hour Hold: 96 Hour Involuntary Admission: Yes 96 Hour Hold Ending Date: 04/18/22 96 Hour Hold Ending Time: 17:00 Attestations NPU Medical Necessity Statement*: Inpatient hospitalization is medically necessary and the clinically appropriate intervention at this time. We will initiate medications and make changes as indicated. She will be in the hospital for over 2 midnights. Likely length of stay 4-6 days Coding Level of Care Code Acute Applications Support Specialist for Kyleigh Valadez Diagnoses Drug-induced psychotic disorder F19.959 Acute psychosis F23 Alcohol intoxication F10.929 Methamphetamine abuse F15.10
[2022-04-15] MEDS: multivitamin therapeutic Tablet 1 TAB PO (10:20)
[2022-04-15] MEDS: thiamine 100 mg Tablet PO (10:20)
[2022-04-15] MEDS: sulfamethoxazole-trimeth DS 160-800 mg Tablet 1 TAB PO ×2 (10:20→20:46)
[2022-04-15] MEDS: folic acid 1 mg Tablet PO (10:20)
[2022-04-15 13:33] VITALS: BP 99/65; PULSE 89; RESP 15; TEMP 36.4; O2SAT 95
[2022-04-15] MEDS: acetaminophen 325 mg Tablet 650 MG PO (17:19)
[2022-04-15] MEDS: blistex lip oint 7 gm Tube 1 APPLIC TOPICAL (17:19)
[2022-04-15 20:29] VITALS: BP 104/70; PULSE 87; RESP 15; TEMP 36.9; O2SAT 97
[2022-04-15] MEDS: OLANZapine 10 mg TABLET PO (20:46)
[2022-04-16 06:00] VITALS: BP 112/80; PULSE 72; RESP 16; TEMP 36.9; O2SAT 97
[2022-04-16] MEDS: sulfamethoxazole-trimeth DS 160-800 mg Tablet 1 TAB PO ×2 (08:52→20:13)
[2022-04-16] MEDS: folic acid 1 mg Tablet PO (08:52)
[2022-04-16] MEDS: thiamine 100 mg Tablet PO (08:52)
[2022-04-16] MEDS: multivitamin therapeutic Tablet 1 TAB PO (08:52)
[2022-04-16 14:00] VITALS: BP 119/84; PULSE 91; RESP 18; O2SAT 98
--- NOTE | 2022-04-16 15:43 | W.PM.NPUPNS ---
Subjective NPU Subjective: Patient presents today reporting an ultimate desire to be discharged from the hospital but having no clear or articulated plan of how to be successful moving forward. We discussed concerns about her thought disorder. And she seemed to have limited insight into the fact that her mind was not working really well. We discussed the possibility of a 21-day hold but that her 96-hour hold is up on Thursday. She reported that she was fine staying until we felt it was time for her to go but she does want to leave. Mental Status Exam MSE Comments: This is a slender possibly underweight white female with adequate dress, grooming and eye contact. Possible astigmatism. No abnormal movements except for mild psychomotor retardation. Mostly cooperative with exam in no acute distress. Speech was normal rate and volume with limited prosody Mood described as pretty good, affect odd. Thought process somewhat disorganized organized, thought content: patient denies suicidal or homicidal ideation, there were no delusions reported or most likely paranoia and bizarre delusions noted, she denied any auditory or visual hallucinations. Attention and concentration were limited and memory appeared unreliable but none were formally tested. She?s alert and oriented times three. Insight and judgment appeared impaired and impulse control appeared limited Vitals/I&O/Wt Last Vital Signs Temp 98.5 F 04/16/22 06:00 Pulse 91 04/16/22 14:00 Resp 18 04/16/22 14:00 BP 119/84 04/16/22 14:00 Pulse Ox 98 04/16/22 14:00 Weight last 48 hrs Weight 53.977 kg Data NPU : 04/14/22 16:45 04/14/22 16:45 A&P Assessment and plan (1) Drug-induced psychotic disorder: Status: Acute (2) Methamphetamine abuse: Status: Acute (3) Acute psychosis: Status: Acute (4) Alcohol intoxication: Status: Acute Plan This is a 26-year-old female who may have caused permanent psychosis due to chronic methamphetamine abuse, but would need some long-term sobriety success. Plan: 1.? Resume Zyprexa 10 mg at bedtime prescribed at the last hospitalization. 2.? Continue every 15 minute checks for safety. 3.? Encourage individual, group and milieu therapies. 4.? Encourage sober living treatment after discharge at the highest level of care to which she is willing to commit. 5.? We will monitor for safety for herself in the community prior to discharge. Involuntary Hold Information 96 Hour Hold: 96 Hour Involuntary Admission: Yes 96 Hour Hold Ending Date: 04/18/22 96 Hour Hold Ending Time: 17:00 Attestations NPU Medical Necessity Statement*: Inpatient hospitalization is medically necessary and the clinically appropriate intervention at this time.? We will initiate medications and make changes as indicated.? Likely length of stay 4-6 days Coding Level of Care Code Acute Security Officers And Guards for Kyleigh Valadez Diagnoses Drug-induced psychotic disorder F19.959 Methamphetamine abuse F15.10 Acute psychosis F23 Alcohol intoxication F10.929
[2022-04-16] MEDS: nicotine 2 mg Gum BUCCAL (17:29)
[2022-04-16] MEDS: OLANZapine 10 mg TABLET PO (20:13)
[2022-04-16 21:10] VITALS: BP 122/76; PULSE 89; RESP 16; TEMP 37; O2SAT 96
[2022-04-17 06:00] VITALS: BP 111/77; PULSE 80; RESP 16; TEMP 36.4; O2SAT 99
[2022-04-17] MEDS: folic acid 1 mg Tablet PO (11:48)
[2022-04-17] MEDS: sulfamethoxazole-trimeth DS 160-800 mg Tablet 1 TAB PO ×2 (11:48→20:09)
[2022-04-17] MEDS: thiamine 100 mg Tablet PO (11:49)
[2022-04-17] MEDS: multivitamin therapeutic Tablet 1 TAB PO (11:49)
[2022-04-17] MEDS: nicotine 2 mg Gum BUCCAL ×2 (13:43→19:15)
[2022-04-17 13:56] VITALS: BP 112/71; PULSE 72; RESP 17; TEMP 36.9; O2SAT 98
--- NOTE | 2022-04-17 15:58 | P.NPUPN_ITS ---
Subjective NPU Subjective: Patient presented today having some difficulty with the assessment of the treatment team. We discussed the concerns he had about her continued thought disorder and fear that she would not be able to function independently if she were to leave right now. She was very verbose in her response but those words had limited correlation to what she was trying to accomplish and further underscored her level of thought disorder. We discussed our desire to monitor her and make sure that she is able to have rational thinking to make informed consent and logical decisions once discharged. 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 Mental Status Exam MSE Comments: This is a slender possibly underweight white female with adequate dress, grooming and eye contact.? Possible astigmatism.? No abnormal movements except for mild psychomotor retardation.? Mostly cooperative with exam in no acute distress. Speech was normal rate and volume with limited prosody Mood described as frustrated with being here, affect odd.? Thought process somewhat disorganized organized, thought content: patient denies suicidal or homicidal ideation, there were no delusions reported or most likely paranoia and bizarre delusions noted, she denied any auditory or visual hallucinations. Attention and concentration were limited and memory appeared unreliable but none were formally tested. She?s alert and oriented times three. Insight and judgment appeared impaired and impulse control appeared limited Vitals/I&O/Wt Last Vital Signs Temp 98.5 F 04/17/22 13:56 Pulse 72 04/17/22 13:56 Resp 17 04/17/22 13:56 BP 112/71 04/17/22 13:56 Pulse Ox 98 04/17/22 13:56 Data NPU : 04/14/22 16:45 04/14/22 16:45 A&P Assessment and plan (1) Drug-induced psychotic disorder: Status: Acute (2) Methamphetamine abuse: Status: Acute (3) Acute psychosis: Status: Acute (4) Alcohol intoxication: Status: Acute Plan This is a 26-year-old female who may have caused permanent psychosis due to chronic methamphetamine abuse, but would need some long-term sobriety success. Plan: 1.? Resume Zyprexa 10 mg at bedtime prescribed at the last hospitalization. 2.? Continue every 15 minute checks for safety. 3.? Encourage individual, group and milieu therapies. 4.? Encourage sober living treatment after discharge at the highest level of care to which she is willing to commit. 5.? Filed 21-day hold paperwork to ensure ongoing safety. Involuntary Hold Information 96 Hour Hold: 96 Hour Involuntary Admission: Yes 96 Hour Hold Ending Date: 04/18/22 96 Hour Hold Ending Time: 17:00 Attestations NPU Medical Necessity Statement*: Inpatient hospitalization is medically necessary and the clinically appropriate intervention at this time.? We will initiate medications and make changes as indicated.?? Likely length of stay 4-6 days, but will likely be longer with 21-day hold. Coding Level of Care Code Acute Back End Web Developer for Kyleigh Fwisa Diagnoses Drug-induced psychotic disorder F19.959 Methamphetamine abuse F15.10 Acute psychosis F23 Alcohol intoxication F10.929
[2022-04-17] MEDS: OLANZapine 10 mg TABLET PO (20:09)
[2022-04-17] MEDS: trazodone 50 mg Tablet PO (20:11)
[2022-04-17 20:39] VITALS: BP 106/66; PULSE 93; RESP 16; TEMP 36.7; O2SAT 96
[2022-04-18 06:00] VITALS: BP 108/73; PULSE 81; RESP 16; TEMP 36.6; O2SAT 99
[2022-04-18] MEDS: thiamine 100 mg Tablet PO (08:38)
[2022-04-18] MEDS: folic acid 1 mg Tablet PO (08:39)
[2022-04-18] MEDS: sulfamethoxazole-trimeth DS 160-800 mg Tablet 1 TAB PO ×2 (08:39→20:18)
[2022-04-18] MEDS: multivitamin therapeutic Tablet 1 TAB PO (08:39)
[2022-04-18 13:37] VITALS: BP 104/72; PULSE 103; RESP 17; TEMP 36.6; O2SAT 96
[2022-04-18] MEDS: nicotine 2 mg Gum BUCCAL (14:12)
[2022-04-18] MEDS: haloperidol 5 mg Tablet PO (14:12)
--- NOTE | 2022-04-18 16:48 | P.NPUPN_ITS ---
Subjective NPU Subjective: Patient presents today with significant frustration about still being here. At 1 point she had an outburst on the phone was able to calm herself down. She still resistant to talking about any new or different medications but reports that she is finally she is on. She seems to be resistant but not clueless to the fact that she is having some thought disorder. She continues to focus on wanting to leave so again we reviewed the 21-day hold process. She is interested in seeing the information that initiated the 96-hour hold. Mental Status Exam MSE Comments: This is a slender possibly underweight white female with adequate dress, grooming and eye contact.? Possible astigmatism.? No abnormal movements except for mild psychomotor retardation.? Mostly cooperative with exam in no acute distress. Speech was normal rate and volume with limited prosody Mood described as frustrated with being here, affect odd.? Thought process somewhat disorganized organized, thought content: patient denies suicidal or homicidal ideation, there were no delusions reported or most likely paranoia and bizarre delusions noted, she denied any auditory or visual hallucinations. Attention and concentration were limited and memory appeared unreliable but none were formally tested. She?s alert and oriented times three. Insight and judgment appeared impaired and impulse control appeared limited Vitals/I&O/Wt Last Vital Signs Temp 98.0 F 04/18/22 19:46 Pulse 86 04/18/22 19:46 Resp 17 04/18/22 19:46 BP 120/89 04/18/22 19:46 Pulse Ox 97 04/18/22 19:46 Data NPU : 04/14/22 16:45 04/14/22 16:45 A&P Assessment and plan (1) Drug-induced psychotic disorder: Status: Acute (2) Methamphetamine abuse: Status: Acute (3) Acute psychosis: Status: Acute (4) Alcohol intoxication: Status: Acute Plan This is a 26-year-old female who may have caused permanent psychosis due to chronic methamphetamine abuse, but would need some long-term sobriety success. Plan: 1.? Resume Zyprexa 10 mg at bedtime prescribed at the last hospitalization. 2.? Continue every 15 minute checks for safety. 3.? Encourage individual, group and milieu therapies. 4.? Encourage sober living treatment after discharge at the highest level of care to which she is willing to commit. 5.? Filed 21-day hold paperwork to ensure ongoing safety. Involuntary Hold Information 96 Hour Hold: 96 Hour Involuntary Admission: Yes 96 Hour Hold Ending Date: 04/18/22 96 Hour Hold Ending Time: 17:00 Attestations NPU Medical Necessity Statement*: Inpatient hospitalization is medically necessary and the clinically appropriate intervention at this time.? We will initiate medications and make changes as indicated.?? Likely length of stay 4-6 days, but will likely be longer with 21-day hold. Coding Level of Care Code Acute Perfect Binder Operator for Kyleigh Fwd Diagnoses Drug-induced psychotic disorder F19.959 Methamphetamine abuse F15.10 Acute psychosis F23 Alcohol intoxication F10.929
[2022-04-18 19:46] VITALS: BP 120/89; PULSE 86; RESP 17; TEMP 36.7; O2SAT 97
[2022-04-18] MEDS: OLANZapine 10 mg TABLET PO (20:18)
[2022-04-18] MEDS: trazodone 50 mg Tablet PO (20:18)
[2022-04-19 06:00] VITALS: BP 101/63; PULSE 60; RESP 17; TEMP 36.7; O2SAT 99
--- NOTE | 2022-04-19 09:10 | PC.NURSE ---
PT ANXIOUS DUE TO BEING SERVED WITH DAY PAPERS LAST NIGHT. CONTINUES TO BE DELUSIONAL AND HYPERFOCUSED ON PAPER WORK, STATING THINGS LIKE, THIS ISN'T MY DIRECTOR CAMP, AND I'M THE PROSECUTOR ON THIS CASE. ATTEMPTED TO EDUCATE PT ON PROCESS BUT PT WAS UNABLE TO UNDERSTAND. PT IS COOPERATIVE, JUST UNABLE TO PROCESS A LOT OF INFORMATION AT ONE TIME. DENIES SI/HI AND AVH AT THIS TIME. DENIES PAIN.
[2022-04-19] MEDS: thiamine 100 mg Tablet PO (10:18)
[2022-04-19] MEDS: folic acid 1 mg Tablet PO (10:19)
[2022-04-19] MEDS: multivitamin therapeutic Tablet 1 TAB PO (10:19)
[2022-04-19] MEDS: sulfamethoxazole-trimeth DS 160-800 mg Tablet 1 TAB PO ×2 (10:21→20:05)
[2022-04-19] MEDS: nicotine 2 mg Gum BUCCAL ×3 (11:49→19:01)
--- NOTE | 2022-04-19 13:20 | P.NPUPN_ITS ---
Subjective NPU Subjective: Patient presents today continuing to attempt to intellectualize her way into discharge but unfortunately these attempts are clear indications of her cognitive limitations of thought disorder that still persist and still put her at great risk for danger if discharged. Otherwise she is functioning well on the unit and is looking towards her 21-day hold hearing to make her case. Mental Status Exam MSE Comments: This is a slender possibly underweight white female with adequate dress, grooming and eye contact.? Possible astigmatism.? No abnormal movements except for mild psychomotor retardation.? Mostly cooperative with exam in no acute distress. Speech was normal rate and volume with limited prosody. Mood described as a little better, affect odd.? Thought process somewhat disorganized organized, thought content: patient denies suicidal or homicidal ideation, there were no delusions reported or most likely paranoia and bizarre delusions noted, she denied any auditory or visual hallucinations. Attention and concentration were limited and memory appeared unreliable but none were formally tested. She?s alert and oriented times three. Insight and judgment appeared impaired and impulse control appeared limited Vitals/I&O/Wt Last Vital Signs Temp 98.0 F 04/19/22 06:00 Pulse 60 04/19/22 06:00 Resp 17 04/19/22 06:00 BP 101/63 04/19/22 06:00 Pulse Ox 99 04/19/22 06:00 Data NPU : 04/14/22 16:45 04/14/22 16:45 A&P Assessment and plan (1) Drug-induced psychotic disorder: Status: Acute (2) Methamphetamine abuse: Status: Acute (3) Acute psychosis: Status: Acute (4) Alcohol intoxication: Status: Acute Plan This is a 26-year-old female who may have caused permanent psychosis due to chronic methamphetamine abuse, but would need some long-term sobriety success. Plan: 1.? Resume Zyprexa 10 mg at bedtime prescribed at the last hospitalization. Consider adding or changing to different antipsychotic but this may have to wait till after the hearing date. 2.? Continue every 15 minute checks for safety. 3.? Encourage individual, group and milieu therapies. 4.? Encourage sober living treatment after discharge at the highest level of care to which she is willing to commit. 5.? Filed 21-day hold paperwork to ensure ongoing safety. Involuntary Hold Information 96 Hour Hold: 96 Hour Involuntary Admission: Yes 96 Hour Hold Ending Date: 04/18/22 96 Hour Hold Ending Time: 17:00 Attestations NPU Medical Necessity Statement*: Inpatient hospitalization is medically necessary and the clinically appropriate intervention at this time.? We will initiate medications and make changes as indicated.?? Likely length of stay 4-6 days, but will likely be longer with 21-day hold. Coding Level of Care Code Acute Product Tester Fiberglass for Kyleigh Valadez Diagnoses Drug-induced psychotic disorder F19.959 Methamphetamine abuse F15.10 Acute psychosis F23 Alcohol intoxication F10.929
[2022-04-19 13:42] VITALS: BP 106/62; PULSE 97; RESP 16; TEMP 36.3; O2SAT 97
[2022-04-19 19:44] VITALS: BP 121/62; PULSE 80; RESP 18; TEMP 36.7; O2SAT 97
[2022-04-19] MEDS: trazodone 50 mg Tablet PO (20:05)
[2022-04-19] MEDS: OLANZapine 10 mg TABLET PO (20:05)
[2022-04-19] MEDS: simethicone 80 mg Chew PO (20:52)
[2022-04-20 06:00] VITALS: BP 98/61; PULSE 67; RESP 16; TEMP 36.8; O2SAT 97
[2022-04-20] MEDS: multivitamin therapeutic Tablet 1 TAB PO (09:02)
[2022-04-20] MEDS: folic acid 1 mg Tablet PO (09:02)
[2022-04-20] MEDS: thiamine 100 mg Tablet PO (09:02)
[2022-04-20] MEDS: sulfamethoxazole-trimeth DS 160-800 mg Tablet 1 TAB PO ×2 (09:02→20:01)
--- NOTE | 2022-04-20 12:10 | P.NPUPN_ITS ---
Subjective NPU Subjective: Patient presents today reporting that she is doing okay. She has had multiple imaging towards her hopes of possibly convincing because that she is ready to leave. She is been very adamant about the staff trying to pull documentation off of the electronic medical record in hopes that she will be able to show the does that she had plans to go to some form of treatment. She continued to demonstrate limitations in her cognitive and reasoning abilities. Mental Status Exam MSE Comments: This is a slender possibly underweight white female with adequate dress, grooming and eye contact.? Possible astigmatism.? No abnormal movements except for mild psychomotor retardation.? Mostly cooperative with exam in no acute distress. Speech was normal rate and volume with limited prosody.? Mood described as better, affect odd.? Thought process somewhat disorganized organized, thought content: patient denies suicidal or homicidal ideation, there were no delusions reported but most likely paranoia and bizarre delusions noted, she denied any auditory or visual hallucinations. Attention and concentration were limited and memory appeared unreliable but none were formally tested. She?s alert and oriented times person and place but limited on purpose Insight and judgment appeared impaired and impulse control appeared limited Vitals/I&O/Wt Last Vital Signs Temp 98.3 F 04/20/22 06:00 Pulse 67 04/20/22 06:00 Resp 16 04/20/22 06:00 BP 98/61 04/20/22 06:00 Pulse Ox 97 04/20/22 06:00 Weight last 48 hrs Weight 59.421 kg Data NPU : 04/14/22 16:45 04/14/22 16:45 A&P Assessment and plan (1) Drug-induced psychotic disorder: Status: Acute (2) Methamphetamine abuse: Status: Acute (3) Acute psychosis: Status: Acute (4) Alcohol intoxication: Status: Acute Plan This is a 26-year-old female who may have caused permanent psychosis due to chronic methamphetamine abuse, but would need some long-term sobriety success. Plan: 1.? Resume Zyprexa 10 mg at bedtime prescribed at the last hospitalization.? Consider adding or changing to different antipsychotic but this may have to wait till after the hearing date. 2.? Continue every 15 minute checks for safety. 3.? Encourage individual, group and milieu therapies. 4.? Encourage sober living treatment after discharge at the highest level of care to which she is willing to commit. 5.? Filed 21-day hold paperwork to ensure ongoing safety. Involuntary Hold Information 96 Hour Hold: 96 Hour Involuntary Admission: Yes 96 Hour Hold Ending Date: 04/18/22 96 Hour Hold Ending Time: 17:00 Attestations NPU Medical Necessity Statement*: Inpatient hospitalization is medically necessary and the clinically appropriate intervention at this time.? We will initiate medications and make changes as indicated.?? Likely length of stay 4-6 days, but will likely be longer with 21-day hold. Coding Level of Care Code Acute Painter And Decorator Apprentice for Kyleigh Velazquezd Diagnoses Drug-induced psychotic disorder F19.959 Methamphetamine abuse F15.10 Acute psychosis F23 Alcohol intoxication F10.929
[2022-04-20] MEDS: simethicone 80 mg Chew PO ×2 (12:19→14:58)
[2022-04-20] MEDS: nicotine 2 mg Gum BUCCAL ×2 (12:22→17:58)
[2022-04-20 14:00] VITALS: BP 116/84; PULSE 99; RESP 16; TEMP 36.8; O2SAT 98
[2022-04-20 19:43] VITALS: BP 110/72; PULSE 107; RESP 16; TEMP 36.6; O2SAT 96
[2022-04-20] MEDS: OLANZapine 10 mg TABLET PO (20:01)
[2022-04-20] MEDS: trazodone 50 mg Tablet PO (20:01)
[2022-04-21 06:00] VITALS: BP 102/69; PULSE 78; RESP 20; TEMP 36.5; O2SAT 98
[2022-04-21] MEDS: multivitamin therapeutic Tablet 1 TAB PO (10:15)
[2022-04-21] MEDS: sulfamethoxazole-trimeth DS 160-800 mg Tablet 1 TAB PO ×2 (10:15→20:09)
[2022-04-21] MEDS: folic acid 1 mg Tablet PO (10:16)
[2022-04-21] MEDS: thiamine 100 mg Tablet PO (10:16)
[2022-04-21] MEDS: nicotine 2 mg Gum BUCCAL ×3 (10:24→17:49)
[2022-04-21 14:00] VITALS: BP 107/78; PULSE 110; RESP 16; TEMP 36.7; O2SAT 97
[2022-04-21] MEDS: OLANZapine 5 mg ODT PO (16:29)
--- NOTE | 2022-04-21 17:01 | P.NPUPN_ITS ---
Subjective NPU Subjective: Patient presents today continuing to have some difficulties with her functional understanding. She has limited insight into this reality. We discussed the 21-day hold hearing and what it means. She is fairly anxious about the hearing is trying to figure out how to use her current information from [facility] [place] to assist her in convincing the horse show judge that she would be fine independently. Mental Status Exam MSE Comments: This is a slender possibly underweight white female with adequate dress, grooming and eye contact.? Possible astigmatism.? No abnormal movements except for mild psychomotor retardation.? Mostly cooperative with exam in no acute distress. Speech was normal rate and volume with limited prosody.? Mood described as better, affect odd.? Thought process somewhat disorganized organized, thought content: patient denies suicidal or homicidal ideation, there were no delusions reported but most likely paranoia and bizarre delusions noted, she denied any auditory or visual hallucinations. Attention and concentration were limited and memory appeared unreliable but none were formally tested. She?s alert and oriented times person and place but limited on purpose. Insight and judgment appeared impaired and impulse control appeared limited Vitals/I&O/Wt Last Vital Signs Temp 98.0 F 04/21/22 14:00 Pulse 110 H 04/21/22 14:00 Resp 16 04/21/22 14:00 BP 107/78 04/21/22 14:00 Pulse Ox 97 04/21/22 14:00 Weight last 48 hrs Weight 59.421 kg Data NPU : 04/14/22 16:45 04/14/22 16:45 A&P Assessment and plan (1) Drug-induced psychotic disorder: Status: Acute (2) Methamphetamine abuse: Status: Acute (3) Acute psychosis: Status: Acute (4) Alcohol intoxication: Status: Acute Plan This is a 26-year-old female who may have caused permanent psychosis due to chronic methamphetamine abuse, but would need some long-term sobriety success. Plan: 1.? Resume Zyprexa 10 mg at bedtime prescribed at the last hospitalization.? Consider adding or changing to different antipsychotic but this may have to wait till after the hearing date. 2.? Continue every 15 minute checks for safety. 3.? Encourage individual, group and milieu therapies. 4.? Encourage sober living treatment after discharge at the highest level of care to which she is willing to commit. 5.? Filed 21-day hold paperwork to ensure ongoing safety. Involuntary Hold Information 96 Hour Hold: 96 Hour Involuntary Admission: Yes 96 Hour Hold Ending Date: 04/18/22 96 Hour Hold Ending Time: 17:00 Attestations NPU Medical Necessity Statement*: Inpatient hospitalization is medically necessary and the clinically appropriate intervention at this time.? We will initiate medications and make changes as indicated.?? Likely length of stay 4-6 days, but will likely be longer with 21-day hold. Coding Level of Care Code Acute Bobbin Hauler for Kyleigh Fwd Diagnoses Drug-induced psychotic disorder F19.959 Methamphetamine abuse F15.10 Acute psychosis F23 Alcohol intoxication F10.929
[2022-04-21] MEDS: simethicone 80 mg Chew PO (17:49)
[2022-04-21] MEDS: trazodone 50 mg Tablet PO (20:09)
[2022-04-21] MEDS: OLANZapine 10 mg TABLET PO (20:09)
[2022-04-21 21:00] VITALS: BP 104/67; PULSE 102; RESP 18; TEMP 36.6; O2SAT 96
[2022-04-22 06:00] VITALS: RESP 18
[2022-04-22] MEDS: folic acid 1 mg Tablet PO (08:19)
[2022-04-22] MEDS: thiamine 100 mg Tablet PO (08:19)
[2022-04-22] MEDS: multivitamin therapeutic Tablet 1 TAB PO (08:19)
[2022-04-22] MEDS: sulfamethoxazole-trimeth DS 160-800 mg Tablet 1 TAB PO ×2 (08:19→21:14)
--- NOTE | 2022-04-22 13:30 | PC.NURSE ---
Patient very resistant to assessment and stated she felt very anxious.
[2022-04-22 13:54] VITALS: BP 106/64; PULSE 100; RESP 16; TEMP 36.7; O2SAT 98
[2022-04-22] MEDS: hyDROXYzine 25 mg Capsule 50 MG PO ×2 (13:55→21:14)
[2022-04-22] MEDS: nicotine 2 mg Gum BUCCAL ×2 (13:55→19:54)
--- NOTE | 2022-04-22 13:57 | PC.NURSE ---
PRN VISTARIL 50 MG GIVEN PO PER PT C/O STATED ANXIETY, PT NERVOUS ABOUT UPCOMING COURT HEARING
--- NOTE | 2022-04-22 15:02 | PC.NURSE ---
Addendum entered by Maria A Diaz LPN 04/22/22 16:04: return to unit from court Original Note: off unit for [address]
--- NOTE | 2022-04-22 16:41 | P.NPUPN_ITS ---
Subjective NPU Subjective: Patient presents today reporting that she is doing okay after the hearing. She was continued on a 21-day hold and we discussed the fact that there is a discussion about guardianship. She was able to share that her mother is someone that she trusts and she continues to slowly move towards having less crepitus in her responses and answers. Otherwise she recently met with treatment team on follow-up and recovery oriented services. Mental Status Exam MSE Comments: This is a slender possibly underweight white female with adequate dress, grooming and eye contact.? Possible astigmatism.? No abnormal movements except for mild psychomotor retardation.? Mostly cooperative with exam in no acute distress. Speech was normal rate and volume with limited prosody.? Mood described as better, affect odd.? Thought process somewhat disorganized organized, thought content: patient denies suicidal or homicidal ideation, there were no delusions reported but less paranoia and bizarre delusions noted, she denied any auditory or visual hallucinations. Attention and concentration were limited and memory appeared unreliable but none were formally tested. She?s alert and oriented times person and place but limited on purpose.? Insight and judgment appeared impaired and impulse control appeared limited Vitals/I&O/Wt Last Vital Signs Temp 98.1 F 04/22/22 13:54 Pulse 100 04/22/22 13:54 Resp 16 04/22/22 13:54 BP 106/64 04/22/22 13:54 Pulse Ox 98 04/22/22 13:54 Data NPU : 04/14/22 16:45 04/14/22 16:45 A&P Assessment and plan (1) Drug-induced psychotic disorder: Status: Acute (2) Methamphetamine abuse: Status: Acute (3) Acute psychosis: Status: Acute (4) Alcohol intoxication: Status: Acute Plan This is a 26-year-old female who may have caused permanent psychosis due to chronic methamphetamine abuse, but would need some long-term sobriety success. Plan: 1.? Resume Zyprexa 10 mg at bedtime prescribed at the last hospitalization.? Consider adding or changing to different antipsychotic but this may have to wait till after the hearing date. 2.? Continue every 15 minute checks for safety. 3.? Encourage individual, group and milieu therapies. 4.? Encourage sober living treatment after discharge at the highest level of care to which she is willing to commit. 5.? 21-day hold granted. Involuntary Hold Information 96 Hour Hold: 96 Hour Involuntary Admission: Yes 96 Hour Hold Ending Date: 04/18/22 96 Hour Hold Ending Time: 17:00 Attestations NPU Medical Necessity Statement*: Inpatient hospitalization is medically necessary and the clinically appropriate intervention at this time.? We will initiate medications and make changes as indicated.?? Likely length of stay 4-6 days, but will likely be longer with 21-day hold. Coding Level of Care Code Acute Environmental Professional for Kyleigh Fwd Diagnoses Drug-induced psychotic disorder F19.959 Methamphetamine abuse F15.10 Acute psychosis F23 Alcohol intoxication F10.929
[2022-04-22 18:43] VITALS: BP 97/65; PULSE 76; TEMP 37; O2SAT 98
[2022-04-22] MEDS: simethicone 80 mg Chew PO (21:14)
[2022-04-22] MEDS: OLANZapine 10 mg TABLET PO (21:15)
[2022-04-22 22:00] VITALS: BP 97/65; PULSE 76; RESP 16; TEMP 37; O2SAT 98
[2022-04-22] MEDS: trazodone 50 mg Tablet PO (22:12)
[2022-04-23 06:00] VITALS: BP 103/58; PULSE 73; RESP 14; TEMP 36.4; O2SAT 97
[2022-04-23] MEDS: hyDROXYzine 25 mg Capsule 50 MG PO (07:41)
[2022-04-23] MEDS: sulfamethoxazole-trimeth DS 160-800 mg Tablet 1 TAB PO ×2 (09:47→20:17)
[2022-04-23] MEDS: folic acid 1 mg Tablet PO (09:48)
[2022-04-23] MEDS: simethicone 80 mg Chew PO (09:48)
[2022-04-23] MEDS: thiamine 100 mg Tablet PO (09:48)
[2022-04-23] MEDS: multivitamin therapeutic Tablet 1 TAB PO (09:48)
[2022-04-23 14:00] VITALS: BP 103/58; PULSE 73; RESP 14; TEMP 36.4; O2SAT 97
--- NOTE | 2022-04-23 17:09 | W.PM.NPUPNS ---
Subjective NPU Subjective: Patient presents today reporting that she is doing okay overall. She met with her significant other and reports that that went well. She did not have any real goal oriented activities today though treatment team is working on different options with the family. We will likely introduce the conversation about guardianship this week based on limited progress. Mental Status Exam MSE Comments: This is a slender possibly underweight white female with adequate dress, grooming and eye contact.? Possible astigmatism.? No abnormal movements except for mild psychomotor retardation.? Mostly cooperative with exam in no acute distress. Speech was normal rate and volume with limited prosody.? Mood described as I am doing okay, affect odd.? Thought process somewhat disorganized, thought content: patient denies suicidal or homicidal ideation, there were no delusions reported but less paranoia and bizarre delusions noted, she denied any auditory or visual hallucinations. Attention and concentration were limited and memory appeared unreliable but none were formally tested. She?s alert and oriented times person and place but limited on purpose.? Insight and judgment appeared impaired and impulse control appeared limited Vitals/I&O/Wt Last Vital Signs Temp 98.7 F 04/23/22 19:32 Pulse 89 04/23/22 19:32 Resp 14 04/23/22 19:32 BP 92/60 04/23/22 19:32 Pulse Ox 99 04/23/22 19:32 Data NPU : 04/14/22 16:45 04/14/22 16:45 A&P Assessment and plan (1) Drug-induced psychotic disorder: Status: Acute (2) Methamphetamine abuse: Status: Acute (3) Acute psychosis: Status: Acute (4) Alcohol intoxication: Status: Acute Plan This is a 26-year-old female who may have caused permanent psychosis due to chronic methamphetamine abuse, but would need some long-term sobriety success. Plan: 1.? Resume Zyprexa 10 mg at bedtime prescribed at the last hospitalization.? Patient will consider different antipsychotic to add to the Zyprexa based on previous exposure. 2.? Continue every 15 minute checks for safety. 3.? Encourage individual, group and milieu therapies. 4.? Encourage sober living treatment after discharge at the highest level of care to which she is willing to commit. 5.? 21-day hold granted. Involuntary Hold Information 96 Hour Hold: 96 Hour Involuntary Admission: Yes 96 Hour Hold Ending Date: 04/18/22 96 Hour Hold Ending Time: 17:00 Attestations NPU Medical Necessity Statement*: Inpatient hospitalization is medically necessary and the clinically appropriate intervention at this time.? We will initiate medications and make changes as indicated.?? Likely length of stay 4-6 days, but will likely be longer with 21-day hold. Coding Level of Care Code Acute General Warehouse Associate for Kyleigh Fwd Diagnoses Drug-induced psychotic disorder F19.959 Methamphetamine abuse F15.10 Acute psychosis F23 Alcohol intoxication F10.929
[2022-04-23] MEDS: nicotine 2 mg Gum BUCCAL (18:01)
[2022-04-23 19:32] VITALS: BP 92/60; PULSE 89; RESP 14; TEMP 37.1; O2SAT 99
[2022-04-23] MEDS: OLANZapine 10 mg TABLET PO (20:17)
[2022-04-24 06:00] VITALS: BP 95/65; PULSE 80; RESP 17; TEMP 36.6; O2SAT 98
[2022-04-24] MEDS: simethicone 80 mg Chew PO (09:25)
[2022-04-24] MEDS: thiamine 100 mg Tablet PO (09:25)
[2022-04-24] MEDS: multivitamin therapeutic Tablet 1 TAB PO (09:25)
[2022-04-24] MEDS: sulfamethoxazole-trimeth DS 160-800 mg Tablet 1 TAB PO ×2 (09:26→20:20)
[2022-04-24] MEDS: folic acid 1 mg Tablet PO (09:29)
[2022-04-24] MEDS: nicotine 2 mg Gum BUCCAL ×3 (11:28→18:35)
[2022-04-24 14:00] VITALS: BP 129/64; PULSE 105; RESP 16; TEMP 36.5; O2SAT 98
--- NOTE | 2022-04-24 15:31 | W.PM.NPUPNS ---
Subjective NPU Subjective: Patient presents today without significant changes. We discussed the risk-benefit and alternatives of initiating Abilify to add to the impact of an antipsychotic at a different time from a different molecule and she understood agreed to proceed as is documented in this note. She continued to be on her delivery and have moments of confusion. She reported that she trusted this specification writer to do what was best for her over the time that she is here. She was worried that this specification writer was being replaced but we explained Dr. Baird's role on the unit. Mental Status Exam MSE Comments: This is a slender possibly underweight white female with adequate dress, grooming and eye contact.? Possible astigmatism.? No abnormal movements except for mild psychomotor retardation.? Mostly cooperative with exam in no acute distress. Speech was normal rate and volume with limited prosody.? Mood described as I am doing better, affect less odd.? Thought process somewhat disorganized, thought content: patient denies suicidal or homicidal ideation, there were no delusions reported but less paranoia and bizarre delusions noted, she denied any auditory or visual hallucinations. Attention and concentration were limited and memory appeared unreliable but none were formally tested. She?s alert and oriented times person and place but limited on purpose.? Insight and judgment appeared impaired and impulse control appeared limited Vitals/I&O/Wt Last Vital Signs Temp 97.7 F 04/24/22 14:00 Pulse 105 H 04/24/22 14:00 Resp 16 04/24/22 14:00 BP 129/64 04/24/22 14:00 Pulse Ox 98 04/24/22 14:00 Data NPU : 04/14/22 16:45 04/14/22 16:45 A&P Assessment and plan (1) Drug-induced psychotic disorder: Status: Acute (2) Acute psychosis: Status: Acute (3) Methamphetamine abuse: Status: Acute (4) Alcohol intoxication: Status: Acute Plan This is a 26-year-old female who may have caused permanent psychosis due to chronic methamphetamine abuse, but would need some long-term sobriety success. Plan: 1.? Resume Zyprexa 10 mg at bedtime prescribed at the last hospitalization.? Start Abilify 10 mg p.o. every morning. 2.? Continue every 15 minute checks for safety. 3.? Encourage individual, group and milieu therapies. 4.? Encourage sober living treatment after discharge at the highest level of care to which she is willing to commit. 5.? 21-day hold granted. Involuntary Hold Information 96 Hour Hold: 96 Hour Involuntary Admission: Yes 96 Hour Hold Ending Date: 04/18/22 96 Hour Hold Ending Time: 17:00 Attestations NPU Medical Necessity Statement*: Inpatient hospitalization is medically necessary and the clinically appropriate intervention at this time.? We will initiate medications and make changes as indicated.?? Likely length of stay 4-6 days, but will likely be longer with 21-day hold. Coding Level of Care Code Acute Laminating Machine Operator Helper for Kyleigh Valadez Diagnoses Drug-induced psychotic disorder F19.959 Acute psychosis F23 Methamphetamine abuse F15.10 Alcohol intoxication F10.929
[2022-04-24 20:10] VITALS: BP 105/68; PULSE 95; RESP 15; TEMP 36.8; O2SAT 96
[2022-04-24] MEDS: OLANZapine 10 mg TABLET PO (20:21)
[2022-04-24] MEDS: trazodone 50 mg Tablet PO ×2 (20:22→21:20)
[2022-04-25 06:00] VITALS: BP 95/57; PULSE 80; RESP 15; TEMP 36.6; O2SAT 97
[2022-04-25] MEDS: ARIPiprazole 10 mg Tablet PO (10:37)
[2022-04-25] MEDS: sulfamethoxazole-trimeth DS 160-800 mg Tablet 1 TAB PO ×2 (10:37→20:18)
[2022-04-25] MEDS: multivitamin therapeutic Tablet 1 TAB PO (10:38)
[2022-04-25] MEDS: nicotine 2 mg Gum BUCCAL (10:38)
[2022-04-25] MEDS: folic acid 1 mg Tablet PO (10:38)
[2022-04-25] MEDS: thiamine 100 mg Tablet PO (10:38)
[2022-04-25] MEDS: simethicone 80 mg Chew PO (10:38)
--- NOTE | 2022-04-25 13:50 | W.PM.NPUPNS ---
Subjective NPU Subjective: Patient presents today reporting that she is little tired today. Unclear whether this represents something to do with her new dose of Abilify or not but at this point reports that she is doing okay and just little tired. She denies any new or concerning issues. She reports eating sleeping okay. Mental Status Exam MSE Comments: This is a slender possibly underweight white female with adequate dress, grooming and eye contact.? Possible astigmatism.? No abnormal movements except for mild psychomotor retardation.? Mostly cooperative with exam in no acute distress. Speech was normal rate and volume with limited prosody.? Mood described as tired, affect congruent.? Thought process somewhat disorganized, thought content: patient denies suicidal or homicidal ideation, there were no delusions reported but less paranoia and bizarre delusions noted, she denied any auditory or visual hallucinations. Attention and concentration were limited and memory appeared unreliable but none were formally tested. She?s alert and oriented times person and place but limited on purpose.? Insight and judgment appeared impaired and impulse control appeared limited Vitals/I&O/Wt Last Vital Signs Temp 98 F 04/25/22 06:00 Pulse 80 04/25/22 06:00 Resp 15 04/25/22 06:00 BP 95/57 04/25/22 06:00 Pulse Ox 97 04/25/22 06:00 Data NPU : 04/14/22 16:45 04/14/22 16:45 A&P Assessment and plan (1) Drug-induced psychotic disorder: Status: Acute (2) Methamphetamine abuse: Status: Acute (3) Acute psychosis: Status: Acute (4) Alcohol intoxication: Status: Acute Plan This is a 26-year-old female who may have caused permanent psychosis due to chronic methamphetamine abuse, but would need some long-term sobriety success. Plan: 1.? Resume Zyprexa 10 mg at bedtime prescribed at the last hospitalization.? Started Abilify 10 mg p.o. every morning. 2.? Continue every 15 minute checks for safety. 3.? Encourage individual, group and milieu therapies. 4.? Encourage sober living treatment after discharge at the highest level of care to which she is willing to commit. 5.? 21-day hold granted. Involuntary Hold Information 96 Hour Hold: 96 Hour Involuntary Admission: Yes 96 Hour Hold Ending Date: 04/18/22 96 Hour Hold Ending Time: 17:00 Attestations NPU Medical Necessity Statement*: Inpatient hospitalization is medically necessary and the clinically appropriate intervention at this time.? We will initiate medications and make changes as indicated.?? Likely length of stay 4-6 days, but will likely be longer with 21-day hold. Coding Level of Care Code Acute Engineering Geologist for Kyleigh Velazquezd Diagnoses Drug-induced psychotic disorder F19.959 Methamphetamine abuse F15.10 Acute psychosis F23 Alcohol intoxication F10.929
[2022-04-25 14:00] VITALS: BP 104/66; PULSE 93; RESP 20; TEMP 36.6; O2SAT 96
[2022-04-25] MEDS: acetaminophen 325 mg Tablet 650 MG PO ×2 (14:16→19:26)
[2022-04-25 19:37] VITALS: BP 109/71; PULSE 89; RESP 18; TEMP 36.6; O2SAT 99
[2022-04-25] MEDS: trazodone 50 mg Tablet PO (20:18)
[2022-04-25] MEDS: OLANZapine 10 mg TABLET PO (20:18)
[2022-04-26 06:00] VITALS: BP 99/61; PULSE 80; RESP 17; TEMP 36.7; O2SAT 97
--- NOTE | 2022-04-26 06:22 | PC.NURSE ---
Patient has been on Bactrim DS x 10 days for UTI. Patient has no complaints of any symptoms. Per Dr. Marquez, stop the antibiotic.
[2022-04-26] MEDS: ARIPiprazole 10 mg Tablet PO (09:34)
[2022-04-26] MEDS: multivitamin therapeutic Tablet 1 TAB PO (09:34)
[2022-04-26] MEDS: folic acid 1 mg Tablet PO (09:34)
[2022-04-26] MEDS: thiamine 100 mg Tablet PO (09:34)
[2022-04-26] MEDS: simethicone 80 mg Chew PO ×2 (09:34→17:11)
[2022-04-26] MEDS: nicotine 2 mg Gum BUCCAL ×3 (09:34→20:14)
[2022-04-26 13:38] VITALS: BP 107/72; PULSE 89; RESP 17; TEMP 37; O2SAT 99
--- NOTE | 2022-04-26 14:42 | P.NPUPN_ITS ---
Subjective NPU Subjective: Patient presented today reporting that she is doing okay. She asked today if we had a sense of how long she was going to be kept. She denied any problems with the initiation of the Abilify though she has seemed somewhat more somnolent during the day. We discussed that we could adjust the timing of the dose proceed denied multiple times there being any difference in how she feels from the standpoint of daytime sleepiness with the new medication. Mental Status Exam MSE Comments: This is a slender possibly underweight white female with adequate dress, grooming and eye contact.? Possible astigmatism.? No abnormal movements except for mild psychomotor retardation.? Mostly cooperative with exam in no acute distress. Speech was normal rate and volume with limited prosody.? Mood described as okay, affect congruent.? Thought process somewhat disorganized, thought content: patient denies suicidal or homicidal ideation, there were no delusions reported but less paranoia and bizarre delusions noted, she denied any auditory or visual hallucinations. Attention and concentration were limited and memory appeared unreliable but none were formally tested. She?s alert and oriented times person and place but limited on purpose.? Insight and judgment appeared impaired and impulse control appeared limited Vitals/I&O/Wt Last Vital Signs Temp 98.6 F 04/26/22 13:38 Pulse 89 04/26/22 13:38 Resp 17 04/26/22 13:38 BP 107/72 04/26/22 13:38 Pulse Ox 99 04/26/22 13:38 Data NPU : 04/14/22 16:45 04/14/22 16:45 A&P Assessment and plan (1) Drug-induced psychotic disorder: Status: Acute (2) Methamphetamine abuse: Status: Acute (3) Acute psychosis: Status: Acute (4) Alcohol intoxication: Status: Acute Plan This is a 26-year-old female who may have caused permanent psychosis due to chronic methamphetamine abuse, but would need some long-term sobriety success. Plan: 1.? Resume Zyprexa 10 mg at bedtime prescribed at the last hospitalization.? Started Abilify 10 mg p.o. every morning. 2.? Continue every 15 minute checks for safety. 3.? Encourage individual, group and milieu therapies. 4.? Encourage sober living treatment after discharge at the highest level of care to which she is willing to commit. 5.? 21-day hold granted. Considering whether guardianship will be the appropriate intervention. Involuntary Hold Information 96 Hour Hold: 96 Hour Involuntary Admission: Yes 96 Hour Hold Ending Date: 04/18/22 96 Hour Hold Ending Time: 17:00 Attestations NPU Medical Necessity Statement*: Inpatient hospitalization is medically necessary and the clinically appropriate intervention at this time.? We will initiate medications and make changes as indicated.?? Likely length of stay 7-9 days, but will likely be longer with 21-day hold. Coding Level of Care Code Acute Janitorial Assistant for Patriciag Fwd Diagnoses Drug-induced psychotic disorder F19.959 Methamphetamine abuse F15.10 Acute psychosis F23 Alcohol intoxication F10.929
[2022-04-26] MEDS: OLANZapine 5 mg ODT PO (17:11)
[2022-04-26 20:06] VITALS: BP 109/70; PULSE 99; RESP 16; TEMP 36.6; O2SAT 98
[2022-04-26] MEDS: OLANZapine 10 mg TABLET PO (20:14)
[2022-04-26] MEDS: trazodone 50 mg Tablet PO (20:14)
[2022-04-26] MEDS: hyDROXYzine 25 mg Capsule 50 MG PO (21:12)
[2022-04-27 05:55] VITALS: BP 96/63; PULSE 79; RESP 16; TEMP 36.1; O2SAT 97
--- NOTE | 2022-04-27 08:34 | W.PM.NPUPNS ---
Subjective NPU Subjective: Patient is beginning to show some improvement mostly identified by the fact that she has widely starting to ask about discharge. She appears to be tolerating the Abilify and we are monitoring closely and see if there is any improvement as we start trying to answer the question of whether guardianship should be a consideration. We talked about possibly some unofficial cognitive testing and she was open to that. Mental Status Exam MSE Comments: This is a slender possibly underweight white female with adequate dress, grooming and eye contact.? Possible astigmatism.? No abnormal movements except for mild psychomotor retardation.? Mostly cooperative with exam in no acute distress. Speech was normal rate and volume with limited prosody.? Mood described as fine, affect congruent.? Thought process somewhat disorganized, thought content: patient denies suicidal or homicidal ideation, there were no delusions reported or noted, she denied any auditory or visual hallucinations. Attention and concentration were limited and memory appeared unreliable but none were formally tested. She?s alert and oriented times person and place but limited on purpose.? Insight and judgment appeared impaired and impulse control appeared limited Vitals/I&O/Wt Last Vital Signs Temp 97 F L 04/27/22 05:55 Pulse 79 04/27/22 05:55 Resp 16 04/27/22 05:55 BP 96/63 04/27/22 05:55 Pulse Ox 97 04/27/22 05:55 Weight last 48 hrs Weight 58.967 kg Data NPU : 04/14/22 16:45 04/14/22 16:45 A&P Assessment and plan (1) Drug-induced psychotic disorder: Status: Acute (2) Methamphetamine abuse: Status: Acute (3) Acute psychosis: Status: Acute (4) Alcohol intoxication: Status: Acute Plan This is a 26-year-old female who may have caused permanent psychosis due to chronic methamphetamine abuse, but would need some long-term sobriety success. Plan: 1.? Resumed Zyprexa 10 mg at bedtime prescribed at the last hospitalization.? Started Abilify 10 mg p.o. every morning. 2.? Continue every 15 minute checks for safety. 3.? Encourage individual, group and milieu therapies. 4.? Encourage sober living treatment after discharge at the highest level of care to which she is willing to commit. 5.? 21-day hold granted.? Considering whether guardianship will be the appropriate intervention. Involuntary Hold Information 96 Hour Hold: 96 Hour Involuntary Admission: Yes 96 Hour Hold Ending Date: 04/18/22 96 Hour Hold Ending Time: 17:00 Attestations NPU Medical Necessity Statement*: Inpatient hospitalization is medically necessary and the clinically appropriate intervention at this time.? We will initiate medications and make changes as indicated.?? Likely length of stay 6-8 days, but will likely be longer with 21-day hold. Coding Level of Care Code Acute Merry Go Round Operator for Kyleigh Valadez Diagnoses Drug-induced psychotic disorder F19.959 Methamphetamine abuse F15.10 Acute psychosis F23 Alcohol intoxication F10.929
[2022-04-27] MEDS: multivitamin therapeutic Tablet 1 TAB PO (09:24)
[2022-04-27] MEDS: folic acid 1 mg Tablet PO (09:24)
[2022-04-27] MEDS: ARIPiprazole 10 mg Tablet PO (09:24)
[2022-04-27] MEDS: thiamine 100 mg Tablet PO (09:24)
[2022-04-27] MEDS: nicotine 2 mg Gum BUCCAL ×2 (09:24→17:52)
--- NOTE | 2022-04-27 12:54 | ECG_ITS ---
[facility] Test Date: 2022-04-27 Pat Name: Shayla Goss Department: Room: 128 Gender: Female Spring Up Supervisor: : 1995 Requested By: David Marquez Order Number: [id number] Flanagan MD: Mat Haas M.D. Measurements Intervals [place] Rate: 96 P: 67 MN: 128 QRS: 61 QRSD: 88 T: 59 QT: 355 QTc: 449 Interpretive Statements SINUS RHYTHM Compared to ECG 01/28/2022 18:15:57 Sinus arrhythmia no longer present Electronically Signed On 04-28-2022 17:35:18 CDT by Mat Haas M.D. [email or web address] [facility] Stopad[facility] [id number]
[2022-04-27] MEDS: propranolol 20 mg Tablet PO ×2 (13:06→21:29)
[2022-04-27 13:46] VITALS: BP 108/75; PULSE 102; RESP 17; TEMP 36.6; O2SAT 97
--- NOTE | 2022-04-27 15:37 | PC.NURSE ---
pt reported to this nurse that she had x2 episodes of short sharp pains in chest, pt HR reg, bounding. Order obtained from dr bhatt to get stat EKG and start propanolol 20 mg TID. pt instructed to report any other episodes to this nurse, pt verb understanding. EKG print out stated NS rhythm, pt is calm and no other issues
[2022-04-27] MEDS: OLANZapine 10 mg TABLET PO (21:29)
[2022-04-27] MEDS: trazodone 50 mg Tablet PO (21:31)
[2022-04-27 22:00] VITALS: BP 105/70; PULSE 92; RESP 16; TEMP 37.1; O2SAT 97
[2022-04-27 23:19] VITALS: BMI 32.0
[2022-04-28 06:00] VITALS: BP 91/61; PULSE 84; RESP 17; TEMP 36.7; O2SAT 98
[2022-04-28] MEDS: thiamine 100 mg Tablet PO (08:41)
[2022-04-28] MEDS: multivitamin therapeutic Tablet 1 TAB PO (08:41)
[2022-04-28] MEDS: nicotine 2 mg Gum BUCCAL ×3 (08:41→17:08)
[2022-04-28] MEDS: folic acid 1 mg Tablet PO (08:41)
[2022-04-28] MEDS: ARIPiprazole 10 mg Tablet PO (08:41)
[2022-04-28] MEDS: propranolol 20 mg Tablet PO ×2 (08:41→16:17)
[2022-04-28 14:00] VITALS: BP 103/69; PULSE 102; RESP 18; TEMP 36.6; O2SAT 96
[2022-04-28] MEDS: OLANZapine 5 mg ODT PO (17:11)
--- NOTE | 2022-04-28 18:34 | P.NPUPN_ITS ---
Subjective NPU Subjective: Patient presents today reporting that she initially was feeling resistant to taking the LISA as she was thinking it was really administered by Dr. Baird and I. I explained to her that it is administered by OT and that they would just be asking her some questions about different daily and supported being okay with it. Unfortunately they started administering the test she struggled and ultimately did not let them complete the test. However she did show significant deficiencies which were any areas of our concerns. She denied any changes. Mental Status Exam MSE Comments: This is a slender possibly underweight white female with adequate dress, grooming and eye contact.? Possible astigmatism.? No abnormal movements except for mild psychomotor retardation.? Mostly cooperative with exam in no acute distress. Speech was normal rate and volume with limited prosody.? Mood described as okay, affect congruent.? Thought process somewhat disorganized, thought content: patient denies suicidal or homicidal ideation, there were no delusions reported or noted, she denied any auditory or visual h allucinations. Attention and concentration were limited and memory appeared unreliable but none were formally tested. She?s alert and oriented times person and place but limited on purpose.? Insight and judgment appeared impaired and impulse control appeared limited Vitals/I&O/Wt Last Vital Signs Temp 98.1 F 04/28/22 21:31 Pulse 87 04/28/22 21:31 Resp 18 04/28/22 21:31 BP 96/64 04/28/22 21:31 Pulse Ox 95 04/28/22 21:31 Weight last 48 hrs Weight 79.379 kg Weight 58.967 kg Data NPU : 04/14/22 16:45 04/14/22 16:45 A&P Assessment and plan (1) Drug-induced psychotic disorder: Status: Acute (2) Methamphetamine abuse: Status: Acute (3) Acute psychosis: Status: Acute (4) Alcohol intoxication: Status: Acute Plan This is a 26-year-old female who may have caused permanent psychosis due to chronic methamphetamine abuse, but would need some long-term sobriety success. Plan: 1.? Resumed Zyprexa 10 mg at bedtime prescribed at the last hospitalization.? Started Abilify 10 mg p.o. every morning. 2.? Continue every 15 minute checks for safety. 3.? Encourage individual, group and milieu therapies. 4.? Encourage sober living treatment after discharge at the highest level of care to which she is willing to commit. 5.? 21-day hold granted.? Given her performance on the LISA, we will file for guardianship. Involuntary Hold Information 96 Hour Hold: 96 Hour Involuntary Admission: Yes 96 Hour Hold Ending Date: 04/18/22 96 Hour Hold Ending Time: 17:00 Attestations NPU Medical Necessity Statement*: Inpatient hospitalization is medically necessary and the clinically appropriate intervention at this time.? We will initiate medications and make changes as indicated.?? Likely length of stay 6-8 days, but will likely be longer with guardianship process. Coding Level of Care Code Acute Technical Specialist Cytology for Kyleigh Valadez Diagnoses Drug-induced psychotic disorder F19.959 Methamphetamine abuse F15.10 Acute psychosis F23 Alcohol intoxication F10.929
[2022-04-28] MEDS: OLANZapine 10 mg TABLET PO (20:45)
[2022-04-28] MEDS: trazodone 50 mg Tablet PO (20:45)
[2022-04-28 21:31] VITALS: BP 96/64; PULSE 87; RESP 18; TEMP 36.7; O2SAT 95
[2022-04-29 06:00] VITALS: BP 94/57; PULSE 77; RESP 17; TEMP 36.6; O2SAT 96
[2022-04-29] MEDS: multivitamin therapeutic Tablet 1 TAB PO (09:08)
[2022-04-29] MEDS: thiamine 100 mg Tablet PO (09:08)
[2022-04-29] MEDS: ARIPiprazole 10 mg Tablet PO (09:08)
[2022-04-29] MEDS: folic acid 1 mg Tablet PO (09:08)
[2022-04-29 14:00] VITALS: BP 106/71; PULSE 107; RESP 17; TEMP 36.6; O2SAT 98
[2022-04-29] MEDS: nicotine 2 mg Gum BUCCAL ×2 (15:10→18:59)
[2022-04-29] MEDS: propranolol 20 mg Tablet PO (17:28)
[2022-04-29] MEDS: simethicone 80 mg Chew PO (17:28)
--- NOTE | 2022-04-29 17:29 | PC.NURSE ---
PRN INDERAL/SIMETHICONE INDERAL 20 MG GIVEN PO PER PT C/O STATED ANXIETY. SIMETHICONE 80 MG GIVEN PO PER PT C/O GAS
--- NOTE | 2022-04-29 17:53 | P.NPUPN_ITS ---
Subjective NPU Subjective: Patient presents today with continued cognitive difficulties. She continues to struggle when she attempts to explain her position about anything of substance. She reports that she talk to her boyfriend about the guardianship which she could not find the word she called it the thing that I will have to go to court and they will put me under my mom. We discussed the fact that we would meet with her and her boyfriend or her mother to explain our concerns and the reasons why we think guardianship is safe. She cannot make an articulate argument for why it is not the best way to proceed. We did discuss a hope that her mind would clear from the likely impact from the methamphetamine, but the longer she does not the more concerning it becomes. She talked about wanting a possible second opinion on the treatment team's thinking. Mental Status Exam MSE Comments: This is a slender possibly underweight white female with adequate dress, grooming and eye contact.? Possible astigmatism.? No abnormal movements except for mild psychomotor retardation.? Mostly cooperative with exam in no acute distress. Speech was normal rate and volume with limited prosody.? Mood described as fine but not wanting to be in guardianship proceedings, affect congruent.? Thought process somewhat disorganized, thought content: patient denies suicidal or homicidal ideation, there were no delusions reported or noted, she denied any auditory or visual hallucinations. Attention and concentration were limited and memory appeared unreliable but none were formally tested. She?s alert and oriented times person and place but limited on purpose.? Insight and judgment appeared impaired and impulse control appeared limited Vitals/I&O/Wt Last Vital Signs Temp 97.8 F 04/29/22 20:29 Pulse 129 H 04/29/22 20:29 Resp 16 04/29/22 20:29 BP 114/76 04/29/22 20:29 Pulse Ox 100 04/29/22 20:29 Data NPU : 04/14/22 16:45 04/14/22 16:45 A&P Assessment and plan (1) Drug-induced psychotic disorder: Status: Acute (2) Methamphetamine abuse: Status: Acute (3) Acute psychosis: Status: Acute (4) Alcohol intoxication: Status: Acute Plan This is a 26-year-old female who may have caused permanent psychosis due to chronic methamphetamine abuse, but would need some long-term sobriety success. Plan: 1.? Resumed Zyprexa 10 mg at bedtime prescribed at the last hospitalization.? Started Abilify 10 mg p.o. every morning. 2.? Continue every 15 minute checks for safety. 3.? Encourage individual, group and milieu therapies. 4.? Encourage sober living treatment after discharge at the highest level of care to which she is willing to commit. 5.? 21-day hold granted.? Given her performance on the LISA, we will file for guardianship. Involuntary Hold Information 96 Hour Hold: 96 Hour Involuntary Admission: Yes 96 Hour Hold Ending Date: 04/18/22 96 Hour Hold Ending Time: 17:00 Attestations NPU Medical Necessity Statement*: Inpatient hospitalization is medically necessary and the clinically appropriate intervention at this time.? We will initiate medications and make changes as indicated.?? Likely length of stay 6-8 days, but will likely be longer with guardianship process. Coding Level of Care Code Acute Net Technical Architect for Kyleigh Valadez Diagnoses Drug-induced psychotic disorder F19.959 Methamphetamine abuse F15.10 Acute psychosis F23 Alcohol intoxication F10.929
[2022-04-29] MEDS: benzocaine 20% 7 gm 1 APPLIC MUCOUS MEM (18:37)
[2022-04-29 20:29] VITALS: BP 114/76; PULSE 129; RESP 16; TEMP 36.6; O2SAT 100
[2022-04-29] MEDS: OLANZapine 10 mg TABLET PO (20:53)
[2022-04-29] MEDS: hyDROXYzine 25 mg Capsule 50 MG PO (20:53)
[2022-04-29] MEDS: trazodone 50 mg Tablet PO (20:53)
[2022-04-30 06:00] VITALS: BP 105/61; PULSE 77; RESP 14; TEMP 36.6; O2SAT 97
--- NOTE | 2022-04-30 08:53 | PC.NURSE ---
IN BED, FLAT AFFECT IS NOTED. PT REQUEST TO SPEAK TO BLOCK HAND TODAY SO SHE CAN GET TRANSFERRED OUT OF HERE AND GET A SECOND OPINION BEFORE HAVING THOSE GUARDIAN PAPERS SIGNED FOR OWNERSHIP. THIS RN ATTEMPTED TO EXPLAIN THE GUARDIAN PROCESS, PT WAS NOT ABLE TO GRASP CONCEPTS AT THIS TIME. NOTIFIED SOCK AND STOCKING IRONER TO SPEAK TO PT TO OFFER MORE SUPPORT DURING THIS TRANSITION. PT DENIES PAIN. DENIES SI/HI AND AVH AT THIS TIME. PT DOES APPEAR SAD, DEPRESSED AND UPSET REGARDING CURRENT SITUATION AND UPCOMING COURT DATES.
[2022-04-30] MEDS: nicotine 2 mg Gum BUCCAL ×4 (09:25→22:24)
[2022-04-30] MEDS: multivitamin therapeutic Tablet 1 TAB PO (09:50)
[2022-04-30] MEDS: ARIPiprazole 10 mg Tablet PO (09:50)
[2022-04-30] MEDS: thiamine 100 mg Tablet PO (09:50)
[2022-04-30] MEDS: folic acid 1 mg Tablet PO (09:51)
[2022-04-30] MEDS: OLANZapine 5 mg ODT PO (13:37)
[2022-04-30 14:00] VITALS: BP 118/73; PULSE 119; RESP 17; TEMP 36.8; O2SAT 99
[2022-04-30] MEDS: hyDROXYzine 25 mg Capsule 50 MG PO (17:04)
--- NOTE | 2022-04-30 17:12 | P.NPUPN_ITS ---
Subjective NPU Subjective: Presents today continuing to be inquisitive about things surrounding 21-day hold and guardianship. Patient continues to have the cognitive limitations that raise the specter of guardianship. She was focused on the medication today initially proposing that she take the Vistaril only. Instead we discussed the risk benefits and alternatives of possibly discontinuing Zyprexa and she understood and agreed to consider that possibility. Reports from staff of some disruptive behavior with other patients but unclear if it was intentional or accidental. Mental Status Exam MSE Comments: This is a slender possibly underweight white female with adequate dress, grooming and eye contact.? Possible astigmatism.? No abnormal movements except for mild psychomotor retardation.? Mostly cooperative with exam in no acute distress. Speech was normal rate and volume with limited prosody.? Mood described as fine but not wanting to be in guardianship proceedings, affect congruent.? Thought process somewhat disorganized, thought content: patient denies suicidal or homicidal ideation, there were no delusions reported or noted, she denied any auditory or visual hallucinations. Attention and concentration were limited and memory appeared unreliable but none were formally tested. She?s alert and oriented times person and place but limited on purpose.? Insight and judgment appeared impaired and impulse control appeared limited Vitals/I&O/Wt Last Vital Signs Temp 98.2 F 04/30/22 14:00 Pulse 119 H 04/30/22 14:00 Resp 17 04/30/22 14:00 BP 118/73 04/30/22 14:00 Pulse Ox 99 04/30/22 14:00 Data NPU : 04/14/22 16:45 04/14/22 16:45 A&P Assessment and plan (1) Drug-induced psychotic disorder: Status: Acute (2) Methamphetamine abuse: Status: Acute (3) Acute psychosis: Status: Acute (4) Alcohol intoxication: Status: Acute Plan This is a 26-year-old female who may have caused permanent psychosis due to chronic methamphetamine abuse, but would need some long-term sobriety success. Plan: 1.? Resumed Zyprexa 10 mg at bedtime prescribed at the last hospitalization we will consider discontinuing. Started Abilify 10 mg p.o. every morning. 2.? Continue every 15 minute checks for safety. 3.? Encourage individual, group and milieu therapies. 4.? Encourage sober living treatment after discharge at the highest level of care to which she is willing to commit. 5.? 21-day hold granted.? Given her performance on the LISA, we will file for guardianship. 6. We will complete interrogatories. Involuntary Hold Information 96 Hour Hold: 96 Hour Involuntary Admission: Yes 96 Hour Hold Ending Date: 04/18/22 96 Hour Hold Ending Time: 17:00 Attestations NPU Medical Necessity Statement*: Inpatient hospitalization is medically necessary and the clinically appropriate intervention at this time.? We will initiate medications and make changes as indicated.?? Likely length of stay 6-8 days, but will likely be longer with guardianship process. Coding Level of Care Code Acute Instructor Adjunct Pharmacy Technician for Kyleigh Valadez Diagnoses Drug-induced psychotic disorder F19.959 Methamphetamine abuse F15.10 Acute psychosis F23 Alcohol intoxication F10.929
[2022-04-30] MEDS: simethicone 80 mg Chew PO (17:43)
[2022-04-30 20:08] VITALS: BP 124/79; PULSE 113; RESP 16; TEMP 36.9; O2SAT 99
[2022-04-30] MEDS: OLANZapine 10 mg TABLET PO (21:06)
[2022-04-30] MEDS: blistex lip oint 7 gm Tube 1 APPLIC TOPICAL (21:06)
[2022-04-30] MEDS: trazodone 50 mg Tablet PO (21:08)
--- NOTE | 2022-04-30 21:51 | PC.NURSE ---
PT REQUESTED TRAZADONE AND BLIXTEX. BOTH WERE GIVEN.
[2022-05-01 06:00] VITALS: BP 105/70; PULSE 80; RESP 17; TEMP 36.7; O2SAT 98
[2022-05-01] MEDS: multivitamin therapeutic Tablet 1 TAB PO (07:41)
[2022-05-01] MEDS: nicotine 2 mg Gum BUCCAL ×5 (07:41→20:01)
[2022-05-01] MEDS: thiamine 100 mg Tablet PO (07:42)
[2022-05-01] MEDS: ARIPiprazole 10 mg Tablet PO (07:42)
[2022-05-01] MEDS: folic acid 1 mg Tablet PO (07:42)
[2022-05-01] MEDS: simethicone 80 mg Chew PO ×3 (12:47→20:52)
[2022-05-01] MEDS: acetaminophen 325 mg Tablet 650 MG PO ×2 (13:50→19:24)
[2022-05-01 14:00] VITALS: BP 126/87; PULSE 116; RESP 20; TEMP 36.7; O2SAT 97
--- NOTE | 2022-05-01 14:15 | P.NPUPN_ITS ---
Subjective NPU Subjective: Patient presents today in her normal mode. However in very confusing fashion she was upset in her own way about still being in the hospital, having to see multiple doctors as we discussed the likelihood that I would be off for 10 days, and being very upset about the guardianship reality and 21-day hold. He clearly demonstrated however in this conversation are highly disorganized cognitive status and the absolute need for us to continue to proceed as we are. Mental Status Exam MSE Comments: This is a slender possibly underweight white female with adequate dress, grooming and eye contact.? Possible astigmatism.? No abnormal movements except for mild psychomotor agitation.? Mostly cooperative with exam in mild to moderate distress. Speech was normal rate and volume with limited prosody.? Mood described as fine but not wanting to be in guardianship proceedings, affect congruent.? Thought process somewhat disorganized, thought content: patient denies suicidal or homicidal ideation, there were no delusions reported or noted, she denied any auditory or visual hallucinations. Attention and concentration were limited and memory appeared unreliable but none were formally tested. She?s alert and oriented times person and place but limited on purpose.? Insight and judgment appeared impaired and impulse control appeared limited Vitals/I&O/Wt Last Vital Signs Temp 98.0 F 05/01/22 14:00 Pulse 116 H 05/01/22 14:00 Resp 20 H 05/01/22 14:00 BP 126/87 05/01/22 14:00 Pulse Ox 97 05/01/22 14:00 Data NPU : 04/14/22 16:45 04/14/22 16:45 A&P Assessment and plan (1) Drug-induced psychotic disorder: Status: Acute (2) Methamphetamine abuse: Status: Acute (3) Acute psychosis: Status: Acute (4) Alcohol intoxication: Status: Acute Plan This is a 26-year-old female who may have caused permanent psychosis due to chronic methamphetamine abuse, but would need some long-term sobriety success. Plan: 1.? Discontinue Zyprexa. Was getting no real benefit that was notable from the multiple antipsychotics and she was starting to want to refuse it. Started Abilify 10 mg p.o. every morning. 2.? Continue every 15 minute checks for safety. 3.? Encourage individual, group and milieu therapies. 4.? Encourage sober living treatment after discharge at the highest level of care to which she is willing to commit. 5.? 21-day hold granted.? Given her performance on the LISA, we will file for guardianship. 6.? We will complete interrogatories. Involuntary Hold Information 96 Hour Hold: 96 Hour Involuntary Admission: Yes 96 Hour Hold Ending Date: 04/18/22 96 Hour Hold Ending Time: 17:00 Attestations NPU Medical Necessity Statement*: Inpatient hospitalization is medically necessary and the clinically appropriate intervention at this time.? We will initiate medications and make changes as indicated.?? Likely length of stay 6-8 days, but will likely be longer with guardianship process. Coding Level of Care Code Acute College Sports Assistant for Kyleigh Valadez Diagnoses Drug-induced psychotic disorder F19.959 Methamphetamine abuse F15.10 Acute psychosis F23 Alcohol intoxication F10.929
[2022-05-01] MEDS: ondansetron 4 MG Tablet PO (17:42)
[2022-05-01] MEDS: propranolol 20 mg Tablet PO (19:24)
[2022-05-01] MEDS: hyDROXYzine 25 mg Capsule 50 MG PO (20:01)
[2022-05-01] MEDS: trazodone 50 mg Tablet PO ×2 (20:01→21:32)
[2022-05-01 20:19] VITALS: BP 133/91; PULSE 105; RESP 20; TEMP 36.9; O2SAT 99
--- NOTE | 2022-05-01 20:58 | PC.NURSE ---
PRN PT REQUESTED MEDICATION TO HELP HER SLEEP AND FOR ANXIETY. PT WAS GIVEN VISTERIL AND TRAZADONE. PT ALSO WANTED NICOTINE GUM.
[2022-05-01] MEDS: benzocaine 20% 7 gm 1 APPLIC MUCOUS MEM (21:50)
[2022-05-02 06:00] VITALS: BP 108/72; PULSE 96; RESP 18; TEMP 36.9; O2SAT 99
[2022-05-02] MEDS: thiamine 100 mg Tablet PO (08:16)
[2022-05-02] MEDS: folic acid 1 mg Tablet PO (08:16)
[2022-05-02] MEDS: nicotine 2 mg Gum BUCCAL ×3 (08:16→11:52)
[2022-05-02] MEDS: ARIPiprazole 10 mg Tablet PO (08:16)
[2022-05-02] MEDS: multivitamin therapeutic Tablet 1 TAB PO (08:16)
[2022-05-02] MEDS: simethicone 80 mg Chew PO ×4 (08:16→20:03)
--- NOTE | 2022-05-02 09:59 | PC.NURSE ---
PT ANXIOUS THIS AM. EVASIVE WITH ASSESSMENT. PT WOULD NOT FULLY COOPERATE WITH THIS RN. PT DID REPORT SHE DID NOT SLEEP WELL. PT WOULD NOT ANSWER QUESTIONS AND THEN SAY BAZZARE THINGS LIKE, YOU CAN DO WHAT YOU WANT, SO WHAT ARE YOU DOING. THIS RN ASKED IF WE COULD COMPLETE ASSESSMENT IN HER ROOM, THEN PT STATED, I GUESS YOU CAN GO IN THERE AND ASK THE OTHER LADY. WHEN THIS RN TRIED TO ATTEMPT TO GO TO THE DAY AREA TO COMPLETE ASSESSMENT PT STOOD THERE STARRING AT RN WITH HAND ON HER HIP SAYING, SO WHAT'S NEXT. PT DID DENY SI/HI AND AVH BUT WOULD ADD ON BAZARRE STATEMENTS. SUPPORT VOICED
--- NOTE | 2022-05-02 12:10 | PC.NURSE ---
NEW ORDERS RECEIVED TO START ZYPREXA 10 MG PO AT BEDTIME. IF PT REFUSES NEW ORDERS RECEIVED FROM DR. LUGO TO GIVE ZYPREXA 10 MG IM AT BEDTIME PRN. NEW ORDERS PLACED IN [facility]. ATTEMPTED TO EDUCATE PT UNABLE TO DUE TO CONTINUED CONFUSION.
[2022-05-02 13:43] VITALS: BP 120/81; PULSE 104; RESP 16; TEMP 37.6; O2SAT 97
[2022-05-02] MEDS: nicotine 21 mg Patch 1 PATCH TRANSDERMA (14:17)
--- NOTE | 2022-05-02 17:12 | W.PM.NPUPNS ---
Subjective NPU Subjective: Patient presents today apologetic about our interaction yesterday. She continues to be disconnected and almost expressively aphasic struggling for words at times. We discussed reinstating the Zyprexa after how her night and morning went. And she was okay with that after discussion of the risks, benefits and alternatives she understood and agreed to proceed as is documented in this note. The interrogatories were completed for her guardianship to be submitted. Mental Status Exam MSE Comments: This is a slender possibly underweight white female with adequate dress, grooming and eye contact.? Possible astigmatism.? No abnormal movements.? Mostly cooperative with exam in no acute distress. Speech was normal rate and volume with limited prosody.? Mood described as okay, affect congruent.? Thought process somewhat disorganized, thought content: patient denies suicidal or homicidal ideation, there were no delusions reported or noted, she denied any auditory or visual hallucinations. Attention and concentration were limited and memory appeared unreliable but none were formally tested. She?s alert and oriented times person and place but limited on purpose.? Insight and judgment appeared impaired and impulse control appeared limited Vitals/I&O/Wt Last Vital Signs Temp 98.2 F 05/02/22 19:50 Pulse 109 H 05/02/22 19:50 Resp 17 05/02/22 19:50 BP 125/84 05/02/22 19:50 Pulse Ox 98 05/02/22 19:50 Data NPU : 04/14/22 16:45 04/14/22 16:45 A&P Assessment and plan (1) Drug-induced psychotic disorder: Status: Acute (2) Methamphetamine abuse: Status: Acute (3) Acute psychosis: Status: Acute (4) Alcohol intoxication: Status: Acute Plan This is a 26-year-old female who may have caused permanent psychosis due to chronic methamphetamine abuse, but would need some long-term sobriety success. Plan: 1.? Reinstate Zyprexa.? Did not sleep and notably irritable without the Zyprexa. Continued Abilify 10 mg p.o. every morning. 2.? Continue every 15 minute checks for safety. 3.? Encourage individual, group and milieu therapies. 4.? Encourage sober living treatment after discharge at the highest level of care to which she is willing to commit. 5.? 21-day hold granted.? Given her performance on the LISA, we will file for guardianship. 6.? Submitted guardianship paperwork. Involuntary Hold Information 96 Hour Hold: 96 Hour Involuntary Admission: Yes 96 Hour Hold Ending Date: 04/18/22 96 Hour Hold Ending Time: 17:00 Attestations NPU Medical Necessity Statement*: Inpatient hospitalization is medically necessary and the clinically appropriate intervention at this time.? We will initiate medications and make changes as indicated.?? Likely length of stay 6-8 days, but will likely be longer with guardianship process. Coding Level of Care Code Acute Primary Care Sales Representative for [employer] Fwd Diagnoses Drug-induced psychotic disorder F19.959 Methamphetamine abuse F15.10 Acute psychosis F23 Alcohol intoxication F10.929
[2022-05-02] MEDS: OLANZapine 5 mg ODT PO (17:16)
[2022-05-02] MEDS: hyDROXYzine 25 mg Capsule 50 MG PO (19:17)
[2022-05-02 19:50] VITALS: BP 125/84; PULSE 109; RESP 17; TEMP 36.8; O2SAT 98
[2022-05-02] MEDS: benzocaine 20% 7 gm 1 APPLIC MUCOUS MEM (20:02)
[2022-05-02] MEDS: trazodone 50 mg Tablet PO (20:02)
[2022-05-02] MEDS: OLANZapine 10 mg TABLET PO (20:02)
[2022-05-03 06:00] VITALS: BP 99/64; PULSE 86; RESP 16; TEMP 36.8; O2SAT 97
--- NOTE | 2022-05-03 08:11 | W.PM.NPUPNS ---
Subjective NPU Subjective: Patient presents today seeming fairly unchanged. She did not express any anger or issues surrounding our discussion about Dr. Baird starting to be her doctor tomorrow. I explained to her by expected return date and my hopes that some things are resolved by that time. She denied any new problems or concerns and reports that she is eating and sleeping fine. We discussed that in my absence the guardianship process would continue. Mental Status Exam MSE Comments: This is a well-nourished, well-developed white female with adequate dress, grooming and eye contact.? Possible astigmatism.? No abnormal movements.? Mostly cooperative with exam in no acute distress. Speech was normal rate and volume with limited prosody.? Mood described as fine, affect congruent.? Thought process remained?disorganized,she had several paraphasic errors and appeared quite confused. ? thought content: patient denies suicidal or homicidal ideation, there were no delusions reported or noted, she denied any auditory or visual hallucinations. Attention and concentration were limited and memory appeared unreliable but none were formally tested. She?s alert and oriented times person and place but limited on purpose.? Insight and judgment appeared impaired and impulse control appeared limited Vitals/I&O/Wt Last Vital Signs Temp 98.3 F 05/03/22 06:00 Pulse 86 05/03/22 06:00 Resp 16 05/03/22 06:00 BP 99/64 05/03/22 06:00 Pulse Ox 97 05/03/22 06:00 Weight last 48 hrs Weight 60.328 kg Weight 60.328 kg Data NPU : 04/14/22 16:45 04/14/22 16:45 A&P Assessment and plan (1) Drug-induced psychotic disorder: Status: Acute (2) Methamphetamine abuse: Status: Acute (3) Acute psychosis: Status: Acute (4) Alcohol intoxication: Status: Acute Plan This is a 26-year-old female who may have caused permanent psychosis due to chronic methamphetamine abuse, but would need some long-term sobriety success. Plan: 1.? Reinstate Zyprexa.? Did not sleep and notably irritable without the Zyprexa.? Continued Abilify 10 mg p.o. every morning. 2.? Continue every 15 minute checks for safety. 3.? Encourage individual, group and milieu therapies. 4.? Encourage sober living treatment after discharge at the highest level of care to which she is willing to commit. 5.? 21-day hold granted.? Given her performance on the LISA, we will file for guardianship. 6.? Submitted guardianship paperwork. Involuntary Hold Information 96 Hour Hold: 96 Hour Involuntary Admission: Yes 96 Hour Hold Ending Date: 04/18/22 96 Hour Hold Ending Time: 17:00 Attestations NPU Medical Necessity Statement*: Inpatient hospitalization is medically necessary and the clinically appropriate intervention at this time.? We will initiate medications and make changes as indicated.?? Likely length of stay 6-8 days, but will likely be longer with guardianship process.? Patient on 21 day hold. Guardianship papers filed. Coding Level of Care Code Acute Dimpling Machine Operator for Kyleigh Valadez Diagnoses Drug-induced psychotic disorder F19.959 Methamphetamine abuse F15.10 Acute psychosis F23 Alcohol intoxication F10.929
[2022-05-03] MEDS: folic acid 1 mg Tablet PO (08:38)
[2022-05-03] MEDS: nicotine 2 mg Gum BUCCAL ×4 (08:38→20:08)
[2022-05-03] MEDS: multivitamin therapeutic Tablet 1 TAB PO (08:38)
[2022-05-03] MEDS: thiamine 100 mg Tablet PO (08:38)
[2022-05-03] MEDS: simethicone 80 mg Chew PO ×3 (08:38→17:10)
[2022-05-03] MEDS: ARIPiprazole 10 mg Tablet PO (08:38)
[2022-05-03 14:00] VITALS: BP 136/82; PULSE 113; RESP 17; TEMP 36.9; O2SAT 98
[2022-05-03] MEDS: propranolol 20 mg Tablet PO (17:25)
[2022-05-03] MEDS: OLANZapine 10 mg TABLET PO (20:08)
[2022-05-03] MEDS: trazodone 50 mg Tablet PO (20:08)
[2022-05-03 20:10] VITALS: BP 128/83; PULSE 100; RESP 20; TEMP 36.9; O2SAT 98
[2022-05-04 06:00] VITALS: BP 101/66; PULSE 80; RESP 14; TEMP 36.6; O2SAT 99; BMI 24.3
[2022-05-04] MEDS: folic acid 1 mg Tablet PO (07:50)
[2022-05-04] MEDS: thiamine 100 mg Tablet PO (07:51)
[2022-05-04] MEDS: nicotine 2 mg Gum BUCCAL ×5 (07:51→20:12)
[2022-05-04] MEDS: multivitamin therapeutic Tablet 1 TAB PO (07:51)
[2022-05-04] MEDS: ARIPiprazole 10 mg Tablet PO (07:51)
[2022-05-04] MEDS: simethicone 80 mg Chew PO ×2 (07:51→16:24)
--- NOTE | 2022-05-04 11:48 | P.NPUPN_ITS ---
Subjective NPU Subjective: Patient continues to struggle with her problems with paranoia. She reports significant issues with methamphetamine use and reports that she sometimes struggles with reality. She reports that the abilify has been better for her mood and reports no suicidal thoughts, Patient has been pacing throughout the halls. She reports adequate motivation and states that she is hopeful to live with mother upon discharge. Mental Status Exam MSE Comments: This is a slender possibly underweight white female with adequate dress, grooming and eye contact.? Possible astigmatism.? No abnormal movements.? Mostly cooperative with exam in no acute distress. Speech was normal rate and volume with limited prosody.? Mood described as okay, affect congruent.? Thought process remained disorganized,she had several paraphasic errors and appeared quite confused. thought content: patient denies suicidal or homicidal ideation, there were no delusions reported or noted, she denied any auditory or visual hallucinations. Attention and concentration were limited and memory appeared unreliable but none were formally tested. She?s alert and oriented times person and place but limited on purpose.? Insight and judgment appeared impaired and impulse control appeared limited Vitals/I&O/Wt Last Vital Signs Temp 98.1 F 05/04/22 14:00 Pulse 120 H 05/04/22 14:00 Resp 17 05/04/22 14:00 BP 117/71 05/04/22 14:00 Pulse Ox 96 05/04/22 14:00 Weight last 48 hrs Weight 60.328 kg Weight 60.328 kg Data NPU : 04/14/22 16:45 04/14/22 16:45 A&P Assessment and plan (1) Drug-induced psychotic disorder: Status: Acute (2) Methamphetamine abuse: Status: Acute (3) Acute psychosis: Status: Acute (4) Alcohol intoxication: Status: Acute Plan This is a 26-year-old female who may have caused permanent psychosis due to chronic methamphetamine abuse but hope lies in abstinence of methamphetamine to see if psychosis abates. Plan: 1.? Continue zyprexa and abilify at 10mg daily. 2.? Continue every 15 minute checks for safety. 3.? Encourage individual, group and milieu therapies. 4.? Encourage sober living treatment after discharge at the highest level of care to which she is willing to commit. 5.? 21-day hold granted.? Given her performance on the LISA, we will file for tiff singletary. 6.? Submitted guardianship paperwork. Involuntary Hold Information 96 Hour Hold: 96 Hour Involuntary Admission: Yes 96 Hour Hold Ending Date: 04/18/22 96 Hour Hold Ending Time: 17:00 Attestations NPU Medical Necessity Statement*: Inpatient hospitalization is medically necessary and the clinically appropriate intervention at this time.? We will initiate medications and make changes as indicated.?? Likely length of stay continues to be 10-14 days. but will likely be longer with guardianship process. Patient on 21 day hold. Coding Level of Care Code Acute Home Improvement Installer for Chg Fwd History Problem Focused Exam Problem Focused Medical Decision Making Straight Forward Diagnoses Drug-induced psychotic disorder F19.959 Methamphetamine abuse F15.10 Acute psychosis F23 Alcohol intoxication F10.929
[2022-05-04] MEDS: blistex lip oint 7 gm Tube 1 APPLIC TOPICAL ×2 (13:32→18:48)
[2022-05-04 14:00] VITALS: BP 117/71; PULSE 120; RESP 17; TEMP 36.7; O2SAT 96
[2022-05-04] MEDS: OLANZapine 5 mg ODT PO (16:22)
[2022-05-04 20:02] VITALS: BP 109/73; PULSE 108; RESP 18; TEMP 36.8; O2SAT 96
[2022-05-04] MEDS: propranolol 20 mg Tablet PO (20:12)
[2022-05-04] MEDS: trazodone 50 mg Tablet PO (20:12)
[2022-05-04] MEDS: OLANZapine 10 mg TABLET PO (20:18)
[2022-05-05 06:00] VITALS: BP 99/68; PULSE 84; RESP 16; TEMP 36.7; O2SAT 97
[2022-05-05] MEDS: folic acid 1 mg Tablet PO (08:55)
[2022-05-05] MEDS: multivitamin therapeutic Tablet 1 TAB PO (08:55)
[2022-05-05] MEDS: thiamine 100 mg Tablet PO (08:55)
[2022-05-05] MEDS: ARIPiprazole 10 mg Tablet PO (08:55)
[2022-05-05] MEDS: nicotine 2 mg Gum BUCCAL ×3 (09:46→15:55)
[2022-05-05] MEDS: simethicone 80 mg Chew PO (12:49)
[2022-05-05 13:59] VITALS: BP 119/78; PULSE 100; RESP 16; TEMP 37; O2SAT 97
--- NOTE | 2022-05-05 14:07 | W.PM.NPUPNS ---
Subjective NPU Subjective: Patient is a 26-year-old white female patient with a history of psychotic disorder not otherwise specified abuse and use. Patient continued to appear can used on interview. She reports that she did not want her mother guardian for her she reports that she has problems of her own. Patient continued to perseverate regarding her problems and stated that she did not need to be in a living facility where she would be watched. She continued to minimize her poor performance of the Occupational Therapy evaluation which suggested that Shayla was what was incapable of making safe decisions while living independently. Mental Status Exam MSE Comments: MSE Comments This is a well-nourished, well-developed white female with adequate dress, grooming and eye contact.? No abnormal movements.? Mostly cooperative with exam in no acute distress. Speech was normal rate and volume with limited prosody.? Mood described as fine, affect mood incongruent.? Thought process remained?disorganized,she had several paraphasic errors and appeared quite confused. ? thought content: patient denies suicidal or homicidal ideation, there were no clear delusions though she continued to show evidence of overvalued ideas. she denied any auditory or visual hallucinations. Attention and concentration were limited and memory appeared unreliable but none were formally tested. She?s alert and oriented times person and place but limited on purpose.? Insight and judgment appeared impaired and impulse control appeared limited Vitals/I&O/Wt Last Vital Signs Temp 98.1 F 05/04/22 14:00 Pulse 120 H 05/04/22 14:00 Resp 17 05/04/22 14:00 BP 117/71 05/04/22 14:00 Pulse Ox 96 05/04/22 14:00 Weight last 48 hrs Weight 60.328 kg Weight 60.328 kg Data NPU : 04/14/22 16:45 04/14/22 16:45 A&P Assessment and plan (1) Drug-induced psychotic disorder: This is a 26-year-old female who may have caused permanent psychosis due to chronic methamphetamine abuse, but would need some long-term sobriety success. Plan: 1.? Continue zyprexa 10mg at night and abilify at 10mg daily 2.? Continue every 15 minute checks for safety. 3.? Encourage individual, group and milieu therapies. 4.? Encourage sober living treatment after discharge at the highest level of care to which she is willing to commit. 5.? 21-day hold granted.? Given her performance on the LISA, we will file for guardianship. 6.? Submitted guardianship paperwork. Status: Acute (2) Methamphetamine abuse: Status: Acute (3) Acute psychosis: Status: Acute (4) Alcohol intoxication: Status: Acute Involuntary Hold Information 96 Hour Hold: 96 Hour Involuntary Admission: Yes 96 Hour Hold Ending Date: 04/18/22 96 Hour Hold Ending Time: 17:00 Attestations NPU Medical Necessity Statement*: Inpatient hospitalization is medically necessary and the clinically appropriate intervention at this time.? Likely length of stay 6-8 days, but will likely be longer with guardianship process.? Patient on 21 day hold.? Guardianship papers filed. Coding Level of Care Code Established Pt Acute Water Softener Servicer And Installer for Kyleigh Valadez Patient Type Established History Problem Focused Exam Problem Focused Medical Decision Making Straight Forward Diagnoses Drug-induced psychotic disorder F19.959 Methamphetamine abuse F15.10 Acute psychosis F23 Alcohol intoxication F10.929
[2022-05-05] MEDS: OLANZapine 5 mg ODT PO (17:24)
[2022-05-05] MEDS: acetaminophen 325 mg Tablet 650 MG PO (18:47)
[2022-05-05] MEDS: OLANZapine 10 mg TABLET PO (20:26)
[2022-05-05] MEDS: hyDROXYzine 25 mg Capsule 50 MG PO (20:26)
[2022-05-05] MEDS: trazodone 50 mg Tablet PO (20:26)
[2022-05-05 22:00] VITALS: BP 109/65; PULSE 95; RESP 18; TEMP 37.1; O2SAT 99
[2022-05-06 06:00] VITALS: BP 98/59; PULSE 88; RESP 16; TEMP 36.6; O2SAT 97
[2022-05-06] MEDS: thiamine 100 mg Tablet PO (08:23)
[2022-05-06] MEDS: ARIPiprazole 10 mg Tablet PO (08:23)
[2022-05-06] MEDS: nicotine 2 mg Gum BUCCAL ×6 (08:23→19:31)
[2022-05-06] MEDS: multivitamin therapeutic Tablet 1 TAB PO (08:23)
[2022-05-06] MEDS: folic acid 1 mg Tablet PO (08:23)
[2022-05-06 14:00] VITALS: BP 121/76; PULSE 117; RESP 17; TEMP 37.3; O2SAT 98
--- NOTE | 2022-05-06 14:50 | P.NPUPN_ITS ---
Subjective NPU Subjective: Patient presents today seeming fairly unchanged, she continues to appear quite confused and appeared to be perseverating about attending a hearing while stating that she will refuse any hearing. Patient informed that guardianship issues remain to be solved and i reiterated to her that others have felt that she made bad decisions regarding her own care. She minimized any problems. Mental Status Exam MSE Comments: This is a well-nourished, well-developed white female with adequate dress, grooming and eye contact.? Her eye contact normal, ? No abnormal movements.? Mostly superficially cooperative with exam in no acute distress. Speech was normal rate and volume with limited prosody.? Mood described as fine, affect congruent.? Thought process remained?disorganized,she had several paraph asic errors and appeared quite confused. ? thought content: patient denies suicidal or homicidal ideation, there were no delusions reported or noted, she denied any auditory or visual hallucinations. Attention and concentration were limited and memory appeared unreliable but none were formally tested. She?s alert and oriented times person and place but limited on purpose.? Insight and judgment appeared impaired and impulse control appeared limited Vitals/I&O/Wt Last Vital Signs Temp 99.2 F 05/06/22 14:00 Pulse 117 H 05/06/22 14:00 Resp 17 05/06/22 14:00 BP 121/76 05/06/22 14:00 Pulse Ox 98 05/06/22 14:00 Data NPU : 04/14/22 16:45 04/14/22 16:45 A&P Assessment and plan (1) Drug-induced psychotic disorder: Status: Acute (2) Acute psychosis: 1.? Reinstate Zyprexa.? Did not sleep and notably irritable without the Zyprexa.? Continued Abilify 10 mg p.o. every morning. 2.? Continue every 15 minute checks for safety. 3.? Encourage individual, group and milieu therapies. 4.? Encourage sober living treatment after discharge at the highest level of care to which she is willing to commit. 5.?She remains on 21 day hold. Her insight regarding her problems remain feeble. 6. Given her performance on the LISA, we have filed for guardianship. Status: Acute (3) Methamphetamine abuse: Status: Acute (4) Alcohol intoxication: Status: Acute Involuntary Hold Information 96 Hour Hold: 96 Hour Involuntary Admission: Yes 96 Hour Hold Ending Date: 04/18/22 96 Hour Hold Ending Time: 17:00 Attestations NPU Medical Necessity Statement*: Inpatient hospitalization is medically necessary and the clinically appropriate intervention at this time.? We will initiate medications and make changes as indicated.?? Likely length of stay 6-8 days, but will likely be longer with guardianship process.? Patient on 21 day hold.? Guardianship papers filed. Coding Level of Care Code Established Pt Acute Health Diagnostics Teacher for [employer]iag Fwd Patient Type Established History Problem Focused Exam Problem Focused Medical Decision Making Straight Forward Diagnoses Drug-induced psychotic disorder F19.959 Acute psychosis F23 Methamphetamine abuse F15.10 Alcohol intoxication F10.929
[2022-05-06] MEDS: haloperidol 5 mg Tablet PO (16:31)
--- NOTE | 2022-05-06 17:01 | PC.NURSE ---
PT HEARING VOICES PT UP TO NURSES STATION ASKING ABOUT HEARING VOICES. PT STATES SHE HAS RECENTLY BEEN HEARING VOICES. STATES THE VOICES ARE NOT SPECIFICALLY TELLING HER ANYTHING, JUST CHATTERING AND CONVERSATION. PT ASKED FOR A PRN MEDICATION TO HELP WITH THE VOICES I'M HEARING NOW. PT REFUSED VISTARIL BECAUSE I TAKE THAT FOR ANXIETY. DECLINES ZYDIS DUE TO I TAKE THAT AT NIGHT. PT STATES I WILL TAKE THE THIRD OPTION, MEANING HALDOL. 5 MG OF HALDOL WAS ADMINISTERED ORDERED. ALL QUESTIONS ANSWERED AND SUPPORT VOICED.
[2022-05-06] MEDS: hyDROXYzine 25 mg Capsule 50 MG PO (17:23)
[2022-05-06] MEDS: propranolol 20 mg Tablet PO (19:32)
[2022-05-06 19:54] VITALS: BP 110/69; PULSE 107; RESP 20; TEMP 36.7; O2SAT 94
[2022-05-06] MEDS: trazodone 50 mg Tablet PO (20:24)
[2022-05-06] MEDS: OLANZapine 10 mg TABLET PO (20:24)
[2022-05-07 06:00] VITALS: BP 99/65; PULSE 82; RESP 18; TEMP 36.7; O2SAT 96
[2022-05-07] MEDS: multivitamin therapeutic Tablet 1 TAB PO (09:16)
[2022-05-07] MEDS: thiamine 100 mg Tablet PO (09:16)
[2022-05-07] MEDS: ARIPiprazole 30 mg Tablet 15 MG PO (09:16)
[2022-05-07] MEDS: folic acid 1 mg Tablet PO (09:16)
[2022-05-07] MEDS: hyDROXYzine 25 mg Capsule 50 MG PO ×2 (09:18→15:19)
[2022-05-07] MEDS: nicotine 2 mg Gum BUCCAL ×2 (09:18→12:45)
--- NOTE | 2022-05-07 09:19 | PC.NURSE ---
PRN VISTARIL 50 MG GIVEN PO PER PT C/O STATED ANXIETY
[2022-05-07 14:00] VITALS: BP 107/73; PULSE 110; RESP 18; TEMP 36.6; O2SAT 97
--- NOTE | 2022-05-07 15:19 | PC.NURSE ---
PRN VISTARIL 50 MG GIVEN PO PER PT C/O STATED ANXIETY. WILL CONT TO MONITOR
--- NOTE | 2022-05-07 16:00 | W.PM.NPUPNS ---
Subjective NPU Subjective: Patient presents today seeming fairly unchanged, she had visit from family today. She appeared to be in brighter spirits and continued to perseverate about not wanting to go to the guardianship hearing. She reports that she thinks she is ready to go home, and states that she is counting the days on her 21 day hold. Mental Status Exam MSE Comments: This is a well-nourished, well-developed white female with adequate dress, grooming and eye contact.? Her eye contact normal, ? No abnormal movements.? Mostly superficially? cooperative with exam in no acute distress. Speech was normal rate and volume with limited prosody.? Mood described as fine, affect congruent.? Thought process remained?disorganized,she had many paraphasic errors and appeared quite confused. ? thought content: patient denies suicidal or homicidal ideation, there were no delusions reported or noted. She denied any auditory or visual hallucinations. Attention and concentration were limited and memory appeared unreliable but none were formally tested. She?s alert and oriented times person and place but limited on purpose.? Insight and judgment appeared impaired and impulse control appeared limited Vitals/I&O/Wt Last Vital Signs Temp 97.9 F 05/07/22 14:00 Pulse 110 H 05/07/22 14:00 Resp 18 05/07/22 14:00 BP 107/73 05/07/22 14:00 Pulse Ox 97 05/07/22 14:00 Data NPU : 04/14/22 16:45 04/14/22 16:45 A&P Assessment and plan (1) Drug-induced psychotic disorder: Status: Acute (2) Methamphetamine abuse: Status: Acute (3) Acute psychosis: Status: Acute (4) Alcohol intoxication: Status: Acute Plan Assessment and plan (1) Acute psychosis: 1.? Continue Zyprexa.? Continued Abilify 10 mg p.o. every morning. 2.? Continue every 15 minute checks for safety. 3.? Encourage individual, group and milieu therapies. 4.? Encourage sober living treatment after discharge at the highest level of care to which she is willing to commit. 5.?She remains on 21 day hold.? Her insight regarding her problems remain feeble.? 6. Given her performance on the LISA, we have filed for guardianship. Involuntary Hold Information 96 Hour Hold: 96 Hour Involuntary Admission: Yes 96 Hour Hold Ending Date: 04/18/22 96 Hour Hold Ending Time: 17:00 Attestations NPU Medical Necessity Statement*: Inpatient hospitalization is medically necessary and the clinically appropriate intervention at this time.? We will initiate medications and make changes as indicated.?? Likely length of stay 6-8 days, but will likely be longer with guardianship process.? Patient on 21 day hold.? Guardianship papers filed. 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
[2022-05-07 19:51] VITALS: BP 97/65; PULSE 95; RESP 16; TEMP 36.7; O2SAT 97
[2022-05-07] MEDS: OLANZapine 10 mg TABLET PO (20:19)
[2022-05-07] MEDS: benzocaine 20% 7 gm 1 APPLIC MUCOUS MEM (20:19)
[2022-05-07] MEDS: trazodone 50 mg Tablet PO (20:19)
[2022-05-07] MEDS: acetaminophen 325 mg Tablet 650 MG PO (20:20)
--- NOTE | 2022-05-07 23:47 | PC.NURSE ---
PRN PT REQUESTED TRAZADONE TO HELP HER SLEEP
[2022-05-08 06:00] VITALS: BP 96/58; PULSE 95; RESP 14; TEMP 37.1; O2SAT 96
[2022-05-08] MEDS: ARIPiprazole 30 mg Tablet 15 MG PO (08:15)
[2022-05-08] MEDS: multivitamin therapeutic Tablet 1 TAB PO (08:15)
[2022-05-08] MEDS: nicotine 2 mg Gum BUCCAL (08:15)
[2022-05-08] MEDS: thiamine 100 mg Tablet PO (08:15)
[2022-05-08] MEDS: folic acid 1 mg Tablet PO (08:15)
[2022-05-08] MEDS: nicotine 21 mg Patch 1 PATCH TRANSDERMA (12:52)
[2022-05-08 14:00] VITALS: BP 111/76; PULSE 89; RESP 16; TEMP 36.7; O2SAT 97
--- NOTE | 2022-05-08 15:49 | P.NPUPN_ITS ---
Subjective NPU Subjective: Patient presents today reporting that she wishes to have a meeting with typewriter repairer scot sosa and mother to discuss her case. Patient had reported that she is not going to attend the guardianship hearing. She reports that she would be okay with getting rehabilitation at [facility] upon discharge. She reports no thoughts to hurt self or others. Mental Status Exam MSE Comments: This is a well-nourished, well-developed white female with adequate dress, grooming and eye contact.? Her eye contact normal, ? No abnormal movements.? Mostly superficially? cooperative with exam in no acute distress. Speech was normal rate and volume with limited prosody.? Mood described as okay, affect: blunted.? Thought process showed looseness,she had some paraphasic errors and appeared quite confused. ? thought content: patient denies suicidal or homicidal ideation, there were no delusions reported or noted. ? She denied any auditory or visual hallucinations. Attention and concentration were limited and memory appeared unreliable but none were formally tested. She?s alert and oriented times person and place but limited on purpose.? Insight and judgment appeared impaired and impulse control appeared limited. Vitals/I&O/Wt Last Vital Signs Temp 98.0 F 05/08/22 14:00 Pulse 89 05/08/22 14:00 Resp 16 05/08/22 14:00 BP 111/76 05/08/22 14:00 Pulse Ox 97 05/08/22 14:00 Data NPU : 04/14/22 16:45 04/14/22 16:45 A&P Assessment and plan (1) Drug-induced psychotic disorder: Status: Acute (2) Methamphetamine abuse: Status: Acute (3) Acute psychosis: Status: Acute (4) Alcohol intoxication: Status: Acute Plan 1.? Decrease zyprexa to 7.5mg at night.? Increase Abilify 20 mg p.o. every morning. 2.? Continue every 15 minute checks for safety. 3.? Encourage individual, group and milieu therapies. 4.? Encourage sober living treatment after discharge at the highest level of care to which she is willing to commit. 5.? She remains on 21 day hold.? Her insight regarding her problems remain feeble.? 6. Given her performance on the LISA, we have filed for guardianship. Involuntary Hold Information 96 Hour Hold: 96 Hour Involuntary Admission: Yes 96 Hour Hold Ending Date: 04/18/22 96 Hour Hold Ending Time: 17:00 Attestations NPU Medical Necessity Statement*: Inpatient hospitalization is medically necessary and the clinically appropriate intervention at this time.? We will initiate medications and make changes as indicated.?? Likely length of stay 6-8 days, but will likely be longer with guardianship process.? Patient on 21 day hold.? Guardianship papers filed. Coding Level of Care Code Established Pt Acute Business Applications Specialist for Kyleigh Valadez Patient Type Established History Problem Focused Exam Problem Focused Medical Decision Making Straight Forward Diagnoses Drug-induced psychotic disorder F19.959 Methamphetamine abuse F15.10 Acute psychosis F23 Alcohol intoxication F10.929
--- NOTE | 2022-05-08 17:31 | PC.NURSE ---
took off Nicotine patch and gave to this nurse to dispose of, pt stated I think these patches are giving me a headache
[2022-05-08] MEDS: acetaminophen 325 mg Tablet 650 MG PO (17:47)
[2022-05-08 20:25] VITALS: BP 101/69; PULSE 90; RESP 17; TEMP 36.7; O2SAT 98
[2022-05-08] MEDS: OLANZapine 5 mg TABLET 7.5 MG PO (20:25)
[2022-05-08] MEDS: ibuprofen 800 mg tablet PO (20:26)
[2022-05-08] MEDS: trazodone 50 mg Tablet PO (20:26)
[2022-05-08 21:37] VITALS: BP 101/69; PULSE 90; RESP 17; TEMP 36.7; O2SAT 98
--- NOTE | 2022-05-09 00:54 | PC.NURSE ---
PRN PT REQUESTED TRAZADONE TO HELP HER SLEEP. PT ALSO REQUESTED IBUPROFEN TO HELP WITH HER HEADACHE. PT DID GET RELIEF WITH IBUPROFEN AND IS NOW RESTING IN BED.
[2022-05-09 06:00] VITALS: BP 90/64; PULSE 88; RESP 16; TEMP 36.6; O2SAT 98
[2022-05-09] MEDS: nicotine 21 mg Patch 1 PATCH TRANSDERMA (09:23)
[2022-05-09] MEDS: ARIPiprazole 10 mg Tablet 20 MG PO (09:24)
[2022-05-09] MEDS: thiamine 100 mg Tablet PO (09:24)
[2022-05-09] MEDS: multivitamin therapeutic Tablet 1 TAB PO (09:24)
[2022-05-09] MEDS: folic acid 1 mg Tablet PO (09:24)
--- NOTE | 2022-05-09 13:11 | W.PM.NPUPNS ---
Subjective NPU Subjective: Patient continued to minimize the signficance of her drug use contributing to her problems leading to hospitalization. She reported continued concern regarding being under guardianship of another. She appeared to be less tired with reduction in zyprexa yesterday. No side effects reported otherwise. Patient denies thoughts of hurting herself or others. Mental Status Exam MSE Comments: This is a well-nourished, well-developed white female with adequate dress, grooming and eye contact.? Her eye contact normal, ? No abnormal movements.? Mostly superficially?conversation, she was cooperative with exam in no acute distress. Speech was normal rate and volume with limited prosody.? Mood described allright, affect: blunted and mood incongruent? Thought process showed looseness,she had some? paraphasic errors and appeared quite confused. ? thought content: patient denies suicidal or homicidal ideation, there were no delusions reported or noted. ? She denied any auditory or visual hallucinations. Attention and concentration were limited and memory appeared unreliable but none were formally tested. She?s alert and oriented times person and place but limited on purpose.? Insight and judgment appeared impaired and impulse control appeared limited. Vitals/I&O/Wt Last Vital Signs Temp 98.3 F 05/09/22 13:24 Pulse 89 05/09/22 13:24 Resp 17 05/09/22 13:24 BP 117/77 05/09/22 13:24 Pulse Ox 100 05/09/22 13:24 Data NPU : 04/14/22 16:45 04/14/22 16:45 A&P Assessment and plan (1) Methamphetamine abuse: Status: Acute (2) Acute psychosis: 1.? Continue zyprexa to 7.5mg at night.-continue for plan for reduction Continue Abilify 20 mg p.o. every morning. 2.? Continue every 15 minute checks for safety. 3.? Encourage individual, group and milieu therapies. 4.? Encourage sober living treatment after discharge at the highest level of care to which she is willing to commit. 5.? She remains on 21 day hold.? Her insight regarding her problems remain feeble.? 6.? Given her performance on the LISA, we have filed for guardianship. Status: Acute (3) Alcohol intoxication: Status: Acute (4) Drug-induced psychotic disorder: Status: Acute Involuntary Hold Information 96 Hour Hold: 96 Hour Involuntary Admission: Yes 96 Hour Hold Ending Date: 04/18/22 96 Hour Hold Ending Time: 17:00 Attestations NPU Medical Necessity Statement*: Inpatient hospitalization is medically necessary and the clinically appropriate intervention at this time.? We will initiate medications and make changes as indicated.?? Likely length of stay 6-8 days, but will likely be longer with guardianship process.? Patient on 21 day hold.? Guardianship papers filed. 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
[2022-05-09 13:24] VITALS: BP 117/77; PULSE 89; RESP 17; TEMP 36.8; O2SAT 100
[2022-05-09 19:37] VITALS: BP 110/71; PULSE 90; RESP 18; TEMP 36.7; O2SAT 99
[2022-05-09] MEDS: trazodone 50 mg Tablet PO (20:48)
[2022-05-09] MEDS: OLANZapine 5 mg TABLET 7.5 MG PO (20:48)
[2022-05-09] MEDS: amoxicillin 500 mg Capsule PO (20:48)
[2022-05-09] MEDS: benzocaine 20% 7 gm 1 APPLIC MUCOUS MEM (20:48)
[2022-05-09] MEDS: nicotine 2 mg Gum BUCCAL (20:48)
[2022-05-10 05:59] VITALS: BP 102/68; PULSE 80; RESP 17; TEMP 36.6; O2SAT 97
[2022-05-10] MEDS: ARIPiprazole 10 mg Tablet 20 MG PO (09:36)
[2022-05-10] MEDS: thiamine 100 mg Tablet PO (09:36)
[2022-05-10] MEDS: multivitamin therapeutic Tablet 1 TAB PO (09:36)
[2022-05-10] MEDS: amoxicillin 500 mg Capsule PO ×3 (09:36→21:42)
[2022-05-10] MEDS: folic acid 1 mg Tablet PO (09:36)
[2022-05-10] MEDS: nicotine 4 mg lozenge MUCOUS MEM (10:22)
[2022-05-10 13:43] VITALS: BP 106/68; PULSE 79; RESP 17; TEMP 36.6; O2SAT 98
[2022-05-10] MEDS: OLANZapine 5 mg ODT PO (15:10)
--- NOTE | 2022-05-10 16:10 | P.NPUPN_ITS ---
Subjective NPU Subjective: Patient continued to minimize the signficance of her drug use contributing to he r problems leading to hospitalization.? She reports feeling better today. She denied any side effects from her Zyprexa or Abilify. She reports no sleep continuity disruption. She reports no craving for any illicit drugs. Mental Status Exam MSE Comments: This is a well-nourished, well-developed white female with adequate dress, grooming and eye contact.? Her eye contact normal, ? No abnormal movements.? She was cooperative with exam in no acute distress. Speech was normal rate and volume with limited prosody.? Mood described allright, affect: blunted and mood incongruent? Thought process remained loose at times. ,she had some? paraphasic errors and appeared quite confused as the details of co nversation unfolded. ? thought content: patient denies suicidal or homicidal ideation, there were no delusions reported or noted. ? She denied any auditory or visual hallucinations. Attention and concentration were limited and memory appeared impaired in regards to short term but none were formally tested. She?s alert and oriented times person and place but limited on purpose.? Insight and judgment appeared impaired and impulse control appeared limited. Vitals/I&O/Wt Last Vital Signs Temp 98 F 05/10/22 13:43 Pulse 79 05/10/22 13:43 Resp 17 05/10/22 13:43 BP 106/68 05/10/22 13:43 Pulse Ox 98 05/10/22 13:43 Data NPU : 04/14/22 16:45 04/14/22 16:45 A&P Assessment and plan (1) Drug-induced psychotic disorder: Status: Acute (2) Methamphetamine abuse: Status: Acute (3) Acute psychosis: Status: Acute (4) Alcohol intoxication: Status: Acute Plan 1.? Reduce zyprexa to 5mg at night. Continue Abilify 20 mg p.o. every morning. 2.? Continue every 15 minute checks for safety. 3.? Encourage individual, group and milieu therapies. 4.? Encourage sober living treatment after discharge at the highest level of care to which she is willing to commit. 5.? She remains on 21 day hold.? Her insight regarding her problems remain fee ble.? 6.? Given her performance on the LISA, we have filed for guardianship. Involuntary Hold Information 96 Hour Hold: 96 Hour Involuntary Admission: Yes 96 Hour Hold Ending Date: 04/18/22 96 Hour Hold Ending Time: 17:00 Attestations NPU Medical Necessity Statement*: Inpatient hospitalization is medically necessary and the clinically appropriate intervention at this time.? We will initiate medications and make changes as indicated.?? Likely length of stay 6-8 days, but will likely be longer with guardianship process.? Patient on 21 day hold.? Guardianship papers filed. Coding Level of Care Code Acute Legal Department Manager for Kyleigh Fwd Diagnoses Drug-induced psychotic disorder F19.959 Methamphetamine abuse F15.10 Acute psychosis F23 Alcohol intoxication F10.929
[2022-05-10] MEDS: ibuprofen 800 mg tablet PO ×2 (16:45→21:45)
[2022-05-10 20:08] VITALS: BP 91/63; PULSE 85; RESP 20; TEMP 36.6; O2SAT 95
[2022-05-10] MEDS: OLANZapine 5 mg TABLET PO (21:43)
[2022-05-11 06:00] VITALS: BP 111/75; PULSE 95; RESP 18; TEMP 37; O2SAT 99
[2022-05-11] MEDS: folic acid 1 mg Tablet PO (08:31)
[2022-05-11] MEDS: thiamine 100 mg Tablet PO (08:31)
[2022-05-11] MEDS: ARIPiprazole 10 mg Tablet 20 MG PO (08:31)
[2022-05-11] MEDS: multivitamin therapeutic Tablet 1 TAB PO (08:31)
[2022-05-11] MEDS: amoxicillin 500 mg Capsule PO ×3 (08:31→21:07)
[2022-05-11] MEDS: ibuprofen 800 mg tablet PO (12:00)
--- NOTE | 2022-05-11 13:14 | P.NPUPN_ITS ---
Subjective NPU Subjective: Patient reports that she has been feeling the same. She reports no change in mo od or sleep with the reduction in zyprexa to 5mg at night with Abilify at 20mg daily. Patient likely having guardianship meeting later this week. She reports no feelings of sadness. She reports being better able to concentrate and reports no desire to use drugs or alcohol upon discharge. She denied any side effects from her Zyprexa or Abilify.? Mental Status Exam MSE Comments: This is a well-nourished, well-developed white female with adequate dress, grooming and eye contact.? Her eye contact was normal, ? No abnormal involuntary movements.? She was cooperative with exam in no acute distress. Speech was normal rate and volume with some paraphasic errors in speech. Mood described allright, affect: blunted and mood incongruent? Thought process remained loose at times with evidence of derailment during the interview. ? ? thought content: Shayla denies suicidal or homicidal ideation. There were no delusions reported or noted. ? She denied any auditory or visual hallucinations. Attention span is variable. She?s alert and oriented times 3. Her? Insight and judgment appeared impaired and impulse control appeared to be improving. Vitals/I&O/Wt Last Vital Signs Temp 98 F 05/11/22 13:57 Pulse 104 H 05/11/22 13:57 Resp 16 05/11/22 13:57 BP 109/71 05/11/22 13:57 Pulse Ox 97 05/11/22 13:57 Weight last 48 hrs Weight 63.957 kg Data NPU : 04/14/22 16:45 04/14/22 16:45 A&P Assessment and plan (1) Drug-induced psychotic disorder: Status: Acute (2) Methamphetamine abuse: Status: Acute (3) Acute psychosis: Status: Acute (4) Alcohol intoxication: Status: Acute Plan 1.? Continue zyprexa at 5mg at night. Continue Abilify 20 mg p.o. every morning. 2.? Continue every 15 minute checks for safety. 3.? Encourage individual, group and milieu therapies. 4.? Encourage sober living treatment after discharge at the highest level of care to which she is willing to commit. 5.? She remains on 21 day hold.? Her insight regarding her mental illness remains concerning. ? 6.? Given her performance on the LISA, we have filed for guardianship. Involuntary Hold Information 96 Hour Hold: 96 Hour Involuntary Admission: Yes 96 Hour Hold Ending Date: 04/18/22 96 Hour Hold Ending Time: 17:00 Attestations NPU Medical Necessity Statement*: Inpatient hospitalization is medically necessary and the clinically appropriate intervention at this time.? We will initiate medications and make changes as indicated.?? Likely length of stay 6-8 days, but will likely be longer with guardianship process.? Patient on 21 day hold.? Guardianship papers filed. 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
[2022-05-11 13:57] VITALS: BP 109/71; PULSE 104; RESP 16; TEMP 36.6; O2SAT 97
[2022-05-11] MEDS: nicotine 2 mg Gum BUCCAL (14:20)
[2022-05-11] MEDS: hyDROXYzine 25 mg Capsule 50 MG PO (16:49)
--- NOTE | 2022-05-11 16:49 | PC.NURSE ---
PRN VISTARIL 50 MG GIVEN PO PER PT C/O STATED ANXIETY
[2022-05-11 20:25] VITALS: BP 118/82; PULSE 81; RESP 24; TEMP 36.4; O2SAT 99
[2022-05-11] MEDS: OLANZapine 5 mg TABLET PO (21:07)
[2022-05-11] MEDS: trazodone 50 mg Tablet PO (21:07)
[2022-05-12 06:00] VITALS: BP 103/69; PULSE 87; RESP 16; TEMP 36.8; O2SAT 97
[2022-05-12] MEDS: folic acid 1 mg Tablet PO (08:44)
[2022-05-12] MEDS: multivitamin therapeutic Tablet 1 TAB PO (08:44)
[2022-05-12] MEDS: ARIPiprazole 10 mg Tablet 20 MG PO (08:44)
[2022-05-12] MEDS: amoxicillin 500 mg Capsule PO ×3 (08:44→20:23)
[2022-05-12] MEDS: thiamine 100 mg Tablet PO (08:44)
[2022-05-12] MEDS: nicotine 2 mg Gum BUCCAL ×2 (08:47→16:09)
[2022-05-12] MEDS: propranolol 20 mg Tablet PO (12:55)
--- NOTE | 2022-05-12 12:55 | PC.NURSE ---
PRN INDERAL 20 MG GIVEN PO PER PT C/O STATED ANXIETY
--- NOTE | 2022-05-12 13:23 | W.PM.NPUPNS ---
Subjective NPU Subjective: Patient reports no change in her mood. She report no side effects from her zyprexa or abilify. Patient reports that she understands that guardianship filing has occurred and that she may need to be in the hospital for a few days. She reports no cravings for any drugs or alcohol. She denies any suicidal thoughts. She remains isolative at times on the unit. Mental Status Exam MSE Comments: This is a well-nourished, well-developed white female with adequate dress, grooming and eye contact.? Her eye contact was normal, ? No abnormal involuntary movements.? She was cooperative with exam in no acute distress. Speech was normal rate and volume with less paraphasic errors in speech. ? Mood described as better affect:remains blunted and mood incongruent? Thought process showed some derailment during the interview.? ? ? thought content: Shayla denies suicidal or homicidal ideation.? There were no delusions reported or noted. ? She denied any auditory or visual hallucinations. Attention span is variable. ? She?s alert and oriented times x 3.? Her? Insight and judgment appeared impaired and impulse control appeared to be improving.? Vitals/I&O/Wt Last Vital Signs Temp 97.8 F 05/12/22 14:00 Pulse 91 05/12/22 14:00 Resp 16 05/12/22 14:00 BP 116/71 05/12/22 14:00 Pulse Ox 96 05/12/22 14:00 Weight last 48 hrs Weight 63.957 kg Data NPU : 04/14/22 16:45 04/14/22 16:45 A&P Assessment and plan (1) Drug-induced psychotic disorder: Status: Acute (2) Methamphetamine abuse: Status: Acute (3) Acute psychosis: Status: Acute (4) Alcohol intoxication: Status: Acute Plan 1.? Reduce zyprexa to 2.5mg at night. Continue Abilify 20 mg p.o. every morning. 2.? Continue every 15 minute checks for safety. 3.? Encourage individual, group and milieu therapies. 4.? Encourage sober living treatment after discharge at the highest level of care to which she is willing to commit. 5.? She remains on 21 day hold.? Her insight regarding her mental illness remains concerning.? ? 6.? Given her performance on the LISA, we have filed for guardianship. Involuntary Hold Information 96 Hour Hold: 96 Hour Involuntary Admission: Yes 96 Hour Hold Ending Date: 04/18/22 96 Hour Hold Ending Time: 17:00 Attestations NPU Medical Necessity Statement*: Inpatient hospitalization is medically necessary and the clinically appropriate intervention at this time.? We will initiate medications and make changes as indicated.?? Likely length of stay 6-8 days, but will likely be longer with guardianship process.? Patient on 21 day hold.? Guardianship papers filed. Coding Level of Care Code Established Pt Acute Confectionery Maker for Chg Fwd Patient Type Established Medical Decision Making Straight Forward Diagnoses Drug-induced psychotic disorder F19.959 Methamphetamine abuse F15.10 Acute psychosis F23 Alcohol intoxication F10.929
[2022-05-12 14:00] VITALS: BP 116/71; PULSE 91; RESP 16; TEMP 36.6; O2SAT 96
[2022-05-12] MEDS: simethicone 80 mg Chew PO (16:09)
--- NOTE | 2022-05-12 16:10 | PC.NURSE ---
PRN SIMETHICONE 80 MG CHEWABLE TABLET GIVEN PO PER PT C/O GAS
[2022-05-12] MEDS: ibuprofen 800 mg tablet PO (16:51)
[2022-05-12] MEDS: hyDROXYzine 25 mg Capsule 50 MG PO (19:13)
[2022-05-12] MEDS: trazodone 50 mg Tablet PO ×2 (19:13→20:24)
[2022-05-12] MEDS: OLANZapine 5 mg TABLET 2.5 MG PO (19:13)
[2022-05-12 20:00] VITALS: BP 105/68; PULSE 81; RESP 16; TEMP 37.1; O2SAT 98
[2022-05-13 05:58] VITALS: BP 94/56; PULSE 105; RESP 16; TEMP 36.3; O2SAT 96
--- NOTE | 2022-05-13 09:42 | PC.NURSE ---
PT UP IN DAY AREA AND EATING BREAKFAST. DENIES PAIN. DENIES SI/HI AND AVH AT THIS TIME. PT CONTINUES TO BE TEARFUL AT TIMES DUE TO [facility]ARDIAN[address] COURT AND STATES, I AM NOT GOING TO COURT, I ALREADY TOLD THE DR. PT DESCALATED VERBALLY AND WAS ABLE TO CALM DOWN. THOUGHTS ARE STILL DISORGANIZED. SUPPORT VOICED.
--- NOTE | 2022-05-13 11:01 | W.PM.NPUPNS ---
Subjective NPU Subjective: Patient reports no side effects from medication. She reports that she had a visitor today. She reports that she understands that she will be under guardianship after a hearing scheduled for tomorrow. Patient reported no side effects from her medication. She was cooperative on the milieu although she did appear at times to be confused. Mental Status Exam MSE Comments: This is a well-nourished, well-developed white female with adequate dress, grooming and eye contact.? Her eye contact was normal, ? No abnormal involuntary movement appreciated. ? She was cooperative with exam in no acute distress. Speech was normal rate and volume with some continued paraphasic errors in speech. ? Mood described as better. Her affect remains? blunted and mood incongruent.? Thought process showed some derailment during the interview.? ? ? thought content: Shayla denies suicidal or homicidal ideation.? There were no delusionall thinking appreciated. ? She denied any auditory or visual hallucinations. Attention span is variable. ? She?s alert and oriented times x 3.? Her? insight and judgment remained guarded at this time. Her impulse control appeared to be improving.? Vitals/I&O/Wt Last Vital Signs Temp 98 F 05/13/22 14:00 Pulse 114 H 05/13/22 14:00 Resp 17 05/13/22 14:00 BP 124/68 05/13/22 14:00 Pulse Ox 95 05/13/22 14:00 Data NPU : 04/14/22 16:45 04/14/22 16:45 A&P Assessment and plan (1) Drug-induced psychotic disorder: Status: Acute (2) Methamphetamine abuse: Status: Acute (3) Acute psychosis: Status: Acute (4) Alcohol intoxication: Status: Acute Plan 1.? Continue zyprexa at 2.5mg at night with plan for discontinuation later this week. Continue Abilify 20 mg p.o. every morning. 2.? Continue every 15 minute checks for safety. 3.? Encourage individual, group and milieu therapies. 4.? Encourage sober living treatment after discharge at the highest level of care to which she is willing to commit. 5.? She remains on 21 day hold.? Her insight regarding her mental illness remains concerning.? ? 6.? Given her performance on the LISA, we have filed for guardianship. Involuntary Hold Information 96 Hour Hold: 96 Hour Involuntary Admission: Yes 96 Hour Hold Ending Date: 04/18/22 96 Hour Hold Ending Time: 17:00 Attestations NPU Medical Necessity Statement*: Inpatient hospitalization is medically necessary and the clinically appropriate intervention at this time.? We will initiate medications and make changes as indicated.?? Likely length of stay 6-8 days, but will likely be longer with guardianship process. Guardianship papers filed. 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
[2022-05-13] MEDS: thiamine 100 mg Tablet PO (12:45)
[2022-05-13] MEDS: ARIPiprazole 10 mg Tablet 20 MG PO (12:46)
[2022-05-13] MEDS: amoxicillin 500 mg Capsule PO ×3 (12:46→20:12)
[2022-05-13] MEDS: multivitamin therapeutic Tablet 1 TAB PO (12:47)
[2022-05-13] MEDS: nicotine 4 mg lozenge MUCOUS MEM ×2 (12:47→20:12)
[2022-05-13] MEDS: folic acid 1 mg Tablet PO (12:47)
[2022-05-13] MEDS: nicotine 2 mg Gum BUCCAL (13:33)
[2022-05-13 14:00] VITALS: BP 124/68; PULSE 114; RESP 17; TEMP 36.6; O2SAT 95
[2022-05-13] MEDS: ibuprofen 800 mg tablet PO (14:45)
[2022-05-13] MEDS: OLANZapine 5 mg ODT PO (16:19)
[2022-05-13 19:35] VITALS: BP 100/65; PULSE 97; RESP 18; TEMP 36.8; O2SAT 97
[2022-05-13] MEDS: propranolol 20 mg Tablet PO (20:12)
[2022-05-13] MEDS: OLANZapine 5 mg TABLET 2.5 MG PO (20:12)
[2022-05-14 06:00] VITALS: BP 99/66; PULSE 90; RESP 16; TEMP 36.7; O2SAT 97
--- NOTE | 2022-05-14 08:37 | PC.NURSE ---
PT OFF UNIT WITH DEPT TO GO TO HEARING FOR GUARDIANSHIP, LEFT NPU AT 0823
[2022-05-14] MEDS: amoxicillin 500 mg Capsule PO ×3 (09:36→20:15)
[2022-05-14] MEDS: multivitamin therapeutic Tablet 1 TAB PO (09:37)
[2022-05-14] MEDS: ARIPiprazole 10 mg Tablet 20 MG PO (09:37)
[2022-05-14] MEDS: folic acid 1 mg Tablet PO (09:37)
[2022-05-14] MEDS: thiamine 100 mg Tablet PO (09:37)
--- NOTE | 2022-05-14 10:34 | P.NPUPN_ITS ---
Subjective NPU Subjective: Patient had guardianship hearing today. Patient is guardian of the state. She remains agreeable to starting rehabilation program and reports desire to continue on her medication at this time. No sleep continuity disruption. She denies depressed mood. She reports improved energy. Mental Status Exam MSE Comments: This is a well-nourished, well-developed white female with adequate dress, grooming and eye contact.? Her eye contact was normal, ? No abnormal involuntary motor movements appreciated. ? She was cooperative with exam in no acute distress. Speech was normal rate and volume with some continued paraphasic errors in speech. ? Mood described as allright.? Her? affect remains? blunted and mood incongruent.? Thought process showed some derailment during the interview.? ? ? thought content: Shayla denies suicidal or homicidal ideation.? There were no delusional thinking appreciated.? ? She denied any auditory or visual hallucinations. Attention span is variable. ? She?s alert and oriented times x 3.? Her? insight and judgment remained guarded at this time. ? Her impulse control appeared to be improving.? Vitals/I&O/Wt Last Vital Signs Temp 97.9 F 05/14/22 14:00 Pulse 102 H 05/14/22 14:00 Resp 17 05/14/22 14:00 BP 119/70 05/14/22 14:00 Pulse Ox 97 05/14/22 14:00 Data NPU : 04/14/22 16:45 04/14/22 16:45 A&P Assessment and plan (1) Drug-induced psychotic disorder: Status: Acute (2) Methamphetamine abuse: Status: Acute (3) Acute psychosis: Status: Acute (4) Alcohol intoxication: Status: Acute Involuntary Hold Information 96 Hour Hold: 96 Hour Involuntary Admission: Yes 96 Hour Hold Ending Date: 04/18/22 96 Hour Hold Ending Time: 17:00 Attestations NPU Medical Necessity Statement*: Inpatient hospitalization is medically necessary and the clinically appropriate intervention at this time.? Attempt to disc ontinue zyprexa tommorow and monitor closely for changes in behavior and any evidence of worsening psychosis. Coding Level of Care Code Established Pt Acute Psychiatric Registered Nurse for Kyleigh Fwd Patient Type Established History Problem Focused Exam Problem Focused Medical Decision Making Straight Forward Diagnoses Drug-induced psychotic disorder F19.959 Methamphetamine abuse F15.10 Acute psychosis F23 Alcohol intoxication F10.921
[2022-05-14] MEDS: nicotine 2 mg Gum BUCCAL ×2 (11:19→13:57)
[2022-05-14] MEDS: propranolol 20 mg Tablet PO ×2 (11:19→17:19)
[2022-05-14] MEDS: ibuprofen 800 mg tablet PO ×2 (11:51→20:06)
[2022-05-14 14:00] VITALS: BP 119/70; PULSE 102; RESP 17; TEMP 36.6; O2SAT 97
[2022-05-14] MEDS: nicotine 4 mg lozenge MUCOUS MEM (17:19)
[2022-05-14] MEDS: trazodone 50 mg Tablet PO (20:05)
[2022-05-14] MEDS: simethicone 80 mg Chew PO (20:05)
[2022-05-14 20:28] VITALS: BP 112/72; PULSE 88; RESP 17; TEMP 36.6; O2SAT 98
--- NOTE | 2022-05-14 20:37 | PC.NURSE ---
PRN PT REQUESTED TRAZADONE TO HELP HER SLEEP AND IBUPROFEN FOR ABDOMINAL CRAMPING. PT IS CURRENTLY UP IN THE DAY ROOM.
[2022-05-15 06:00] VITALS: BP 86/59; PULSE 92; RESP 16; TEMP 36.6; O2SAT 97
[2022-05-15] MEDS: ibuprofen 800 mg tablet PO ×2 (08:31→16:37)
[2022-05-15] MEDS: ARIPiprazole 10 mg Tablet 20 MG PO (08:31)
[2022-05-15] MEDS: nicotine 4 mg lozenge MUCOUS MEM ×3 (08:31→16:37)
[2022-05-15] MEDS: folic acid 1 mg Tablet PO (08:32)
[2022-05-15] MEDS: propranolol 20 mg Tablet PO ×2 (08:32→16:37)
[2022-05-15] MEDS: thiamine 100 mg Tablet PO (08:32)
[2022-05-15] MEDS: multivitamin therapeutic Tablet 1 TAB PO (08:32)
[2022-05-15] MEDS: amoxicillin 500 mg Capsule PO ×3 (10:09→19:53)
[2022-05-15] MEDS: OLANZapine 5 mg ODT PO (12:46)
[2022-05-15 14:00] VITALS: BP 100/65; PULSE 115; RESP 20; TEMP 36.7; O2SAT 99
--- NOTE | 2022-05-15 16:17 | P.NPUPN_ITS ---
Subjective NPU Subjective: Patient presents today reporting that things are going okay. She reports that things went fine at the guardianship hearing and that her mother was granted temporary custody she thinks. It is this typewriter assembly and parts inspector's understanding that a compliance administrator Michael Verma was appointed her guardian. We d iscussed the fact that the plan is for her to go to a temporary residential setting at the beginning of the week as she awaits inpatient rehab at [facility] which will probably take 30 to 60 days. She reports he looks forward to hopefully being discharged next week. Mental Status Exam MSE Comments: This is a well-nourished, well-developed white female with adequate dress, grooming and eye contact.? Possible astigmatism.? No abnormal movements.? Cooperative with exam in no acute distress. Speech was normal rate and volume with limited prosody.? Mood described as pretty good, affect congruent.? Thought process remained?linear with some organization but with continued moments of disorganization. ? Thought content: patient denies suicidal or homicidal ideation, there were no delusions reported or noted, she denied any auditory or visual hallucinations. Attention and concentration appeared intact and memory appeared unreliable but none were formally tested. She?s alert and oriented times person and place but limited on purpose.? Insight and judgment appeared impaired and impulse control appeared limited. Vitals/I&O/Wt Last Vital Signs Temp 97.9 F 05/15/22 20:00 Pulse 102 H 05/15/22 20:00 Resp 18 05/15/22 20:00 BP 106/65 05/15/22 20:00 Pulse Ox 95 05/15/22 20:00 Data NPU : 04/14/22 16:45 04/14/22 16:45 A&P Assessment and plan (1) Drug-induced psychotic disorder: Status: Acute (2) Methamphetamine abuse: Status: Acute (3) Acute psychosis: Status: Acute (4) Alcohol intoxication: Status: Acute Plan 1.? Continue? zyprexa at 2.5mg at night with plan for discontinuation later this week. Continue Abilify 20 mg p.o. every morning. 2.? Continue every 15 minute checks for safety. 3.? Encourage individual, group and milieu therapies. 4.? Encourage sober living treatment after discharge at the highest level of care to which she is willing to commit. 5.? Guardianship granted Involuntary Hold Information 96 Hour Hold: 96 Hour Involuntary Admission: Yes 96 Hour Hold Ending Date: 04/18/22 96 Hour Hold Ending Time: 17:00 Attestations NPU Medical Necessity Statement*: Inpatient hospitalization is medically necessary and the clinically appropriate intervention at this time.? We will initiate medications and make changes as indicated.?? Likely length of stay 5-7 days guardianship granted and currently working on a temporary placement which just needs approval for the beginning of next week which will be followed by inpatient rehab. Coding Level of Care Code Acute Marine Architect for Klyeigh Valadez Diagnoses Drug-induced psychotic disorder F19.959 Methamphetamine abuse F15.10 Acute psychosis F23 Alcohol intoxication F10.929
[2022-05-15] MEDS: nicotine 2 mg Gum BUCCAL (18:45)
[2022-05-15] MEDS: trazodone 50 mg Tablet PO (19:53)
[2022-05-15] MEDS: simethicone 80 mg Chew PO (19:53)
[2022-05-15 20:00] VITALS: BP 106/65; PULSE 102; RESP 18; TEMP 36.6; O2SAT 95
[2022-05-16 06:00] VITALS: BP 102/62; PULSE 83; RESP 20; TEMP 36.7; O2SAT 98
[2022-05-16] MEDS: folic acid 1 mg Tablet PO (08:54)
[2022-05-16] MEDS: multivitamin therapeutic Tablet 1 TAB PO (08:54)
[2022-05-16] MEDS: thiamine 100 mg Tablet PO (08:54)
[2022-05-16] MEDS: propranolol 20 mg Tablet PO (08:54)
[2022-05-16] MEDS: ibuprofen 800 mg tablet PO (08:54)
[2022-05-16] MEDS: nicotine 4 mg lozenge MUCOUS MEM ×2 (08:54→16:49)
[2022-05-16] MEDS: ARIPiprazole 10 mg Tablet 20 MG PO (08:54)
[2022-05-16] MEDS: amoxicillin 500 mg Capsule PO ×3 (10:18→20:02)
[2022-05-16] MEDS: hyDROXYzine 25 mg Capsule 50 MG PO (10:23)
[2022-05-16] MEDS: nicotine 2 mg Gum BUCCAL (12:18)
[2022-05-16 13:46] VITALS: BP 103/68; PULSE 86; RESP 17; TEMP 37.6; O2SAT 97
--- NOTE | 2022-05-16 17:02 | P.NPUPN_ITS ---
Subjective NPU Subjective: Patient presents today essentially unchanged in her status. She continues with formal conversation and use paraphasic responses as she struggles to get to the specific word that she is seeking. She seems to lack actual understanding of the guardianship situation and that temporary guardians often become permanent guardians. Otherwise she was wondering about getting the Zyprexa back and I advised her to use the as needed medication that she has to have some Zyprexa at night and then will see how that goes. Mental Status Exam MSE Comments: This is a well-nourished, well-developed white female with adequate dress, grooming and eye contact.? Possible astigmatism.? No abnormal movements.? Cooperative with exam in no acute distress. Speech was normal rate and volume with limited prosody.? Mood described as pretty good, affect congruent, but odd. Thought process remained?linear with some organization but with continued moments of disorganization. ? Thought content: patient denies suicidal or homicidal ideation, there were no delusions reported or noted, she denied any auditory or visual hallucinations. Attention and concentration appeared intact and memory appeared unreliable but none were formally tested. She?s alert and oriented times person and place but limited on purpose.? Insight and judgment appeared impaired and impulse control appeared limited. Vitals/I&O/Wt Last Vital Signs Temp 99.6 F 05/16/22 13:46 Pulse 86 05/16/22 13:46 Resp 17 05/16/22 13:46 BP 103/68 05/16/22 13:46 Pulse Ox 97 05/16/22 13:46 Data NPU : 04/14/22 16:45 04/14/22 16:45 A&P Assessment and plan (1) Drug-induced psychotic disorder: Status: Acute (2) Methamphetamine abuse: Status: Acute (3) Acute psychosis: Status: Acute (4) Alcohol intoxication: Status: Acute Plan This is a 26-year-old female who may have caused permanent psychosis due to chronic methamphetamine abuse, but would need some long-term sobriety success. 1.? Discontinued zyprexa spaniels next. Advised patient she could use as needed medication at night if she felt inclined. The goal for Abilify monotherapy. Continue Abilify 20 mg p.o. every morning. 2.? Continue every 15 minute checks for safety. 3.? Encourage individual, group and milieu therapies. 4.? Encourage sober living treatment after discharge at the highest level of care to which she is willing to commit. 5.? Guardianship granted Involuntary Hold Information 96 Hour Hold: 96 Hour Involuntary Admission: Yes 96 Hour Hold Ending Date: 04/18/22 96 Hour Hold Ending Time: 17:00 Attestations NPU Medical Necessity Statement*: Inpatient hospitalization is medically necessary and the clinically appropriate intervention at this time.? We will initiate medications and make changes as indicated.?? Likely length of stay 4-6 days. Guardianship granted and currently working on a temporary placement which just needs approval for the beginning of next week which will be followed by inpatient rehab. 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
[2022-05-16] MEDS: simethicone 80 mg Chew PO (18:11)
[2022-05-16] MEDS: trazodone 50 mg Tablet PO (20:02)
[2022-05-16 20:23] VITALS: BP 107/70; PULSE 89; RESP 16; O2SAT 94
[2022-05-17 06:00] VITALS: BP 100/67; PULSE 89; RESP 17; TEMP 36.7; O2SAT 94
--- NOTE | 2022-05-17 09:31 | P.NPUPN_ITS ---
Subjective NPU Subjective: Patient presents today essentially unchanged. She continues endorse symptoms of the situation here, the guardianship and her overall plight. She is sitting pleased about the likelihood of discharge to a residential setting at the beginning of the week followed by her awaiting a bed at [facility]. Otherwise there are no changes and she denies any concerns. She reports eating and sleeping fine. Mental Status Exam MSE Comments: This is a well-nourished, well-developed white female with adequ ate dress, grooming and eye contact.? Possible astigmatism.? No abnormal movements.? Cooperative with exam in no acute distress. Speech was normal rate and volume with limited prosody.? Mood described as content, affect congruent, but odd.? Thought process remained?linear with some organization but with continued moments of disorganization. ? Thought content: patient denies suicidal or homicidal ideation, there were no delusions reported or noted, she denied any auditory or visual hallucinations. Attention and concentration appeared intact and memory appeared unreliable but none were formally tested. She?s alert and oriented times person and place but limited on purpose.? Insight and judgment appeared impaired and impulse control appeared limited. Vitals/I&O/Wt Last Vital Signs Temp 99.6 F 05/16/22 13:46 Pulse 89 05/16/22 20:23 Resp 16 05/16/22 20:23 BP 107/70 05/16/22 20:23 Pulse Ox 94 05/16/22 20:23 Data NPU : 04/14/22 16:45 04/14/22 16:45 A&P Assessment and plan (1) Drug-induced psychotic disorder: Status: Acute (2) Methamphetamine abuse: Status: Acute (3) Acute psychosis: Status: Acute (4) Alcohol intoxication: Status: Acute Plan This is a 26-year-old female who may have caused permanent psychosis due to chronic methamphetamine abuse, but would need some long-term sobriety success. 1.? Discontinued zyprexa spaniels next.? Advised patient she could use as needed medication at night if she felt inclined.? The goal for Abilify monotherapy.? Continue Abilify 20 mg p.o. every morning. 2.? Continue every 15 minute checks for safety. 3.? Encourage individual, group and milieu therapies. 4.? Encourage sober living treatment after discharge at the highest level of care to which she is willing to commit. 5.? Guardianship granted Involuntary Hold Information 96 Hour Hold: 96 Hour Involuntary Admission: Yes 96 Hour Hold Ending Date: 04/18/22 96 Hour Hold Ending Time: 17:00 Attestations NPU Medical Necessity Statement*: Inpatient hospitalization is medically necessary and the clinically appropriate intervention at this time.? We will initiate medications and make changes as indicated.?? Likely length of stay 3-5 days. Guardianship granted and currently working on a temporary placement which just needs approval for the beginning of next week which will be followed by inpatient rehab. Coding Level of Care Code Acute Impregnating Machine Operator for Kyleigh Fwd Diagnoses Drug-induced psychotic disorder F19.959 Methamphetamine abuse F15.10 Acute psychosis F23 Alcohol intoxication F10.929
[2022-05-17] MEDS: amoxicillin 500 mg Capsule PO ×3 (10:09→20:37)
[2022-05-17] MEDS: thiamine 100 mg Tablet PO (10:09)
[2022-05-17] MEDS: folic acid 1 mg Tablet PO (10:09)
[2022-05-17] MEDS: multivitamin therapeutic Tablet 1 TAB PO (10:09)
[2022-05-17] MEDS: ibuprofen 800 mg tablet PO (10:09)
[2022-05-17] MEDS: ARIPiprazole 10 mg Tablet 20 MG PO (10:11)
[2022-05-17] MEDS: nicotine 4 mg lozenge MUCOUS MEM ×3 (10:31→18:09)
[2022-05-17 14:00] VITALS: BP 114/72; PULSE 88; RESP 16; TEMP 36.7; O2SAT 100
[2022-05-17] MEDS: simethicone 80 mg Chew PO (20:33)
[2022-05-17] MEDS: propranolol 20 mg Tablet PO (20:33)
[2022-05-17] MEDS: nicotine 2 mg Gum BUCCAL (20:33)
[2022-05-17 21:10] VITALS: BP 121/77; PULSE 91; RESP 20; TEMP 36.6; O2SAT 98
[2022-05-18 06:00] VITALS: BP 105/65; PULSE 81; RESP 20; TEMP 36.8; O2SAT 98
--- NOTE | 2022-05-18 07:23 | P.NPUPN_ITS ---
Subjective NPU Subjective: Patient presents today being much more pleasant on the last few days and started to get excited about the prospect that she could be discharging as soon as tomorrow and possibly going to rehab very soon as well. She denies any issues and felt more comfortable seeing Dr. Baird this time since she has seen him before. Feels like the medications are working fine. And that she is eating and sleeping okay. Mental Status Exam MSE Comments: This is a well-nourished, well-developed white female with adequate dress, grooming and eye contact.? Possible astigmatism.? No abnormal movements.? Cooperative with exam in no acute distress. Speech was normal rate and volume with limited prosody.? Mood described as content, affect congruent, but odd.? Thought process remained?linear with some organization but with continued moments of disorganization. ? Thought content: patient denies suicidal or homicidal ideation, there were no delusions reported or noted, she denied any auditory or visual hallucinations. Attention and concentration appeared intact and memory appeared unreliable but none were formally tested. She?s alert and oriented times person and place but limited on purpose.? Insight and judgment appeared impaired and impulse control appeared limited. Vitals/I&O/Wt Last Vital Signs Temp 97.8 F 05/17/22 21:10 Pulse 91 05/17/22 21:10 Resp 20 H 05/17/22 21:10 BP 121/77 05/17/22 21:10 Pulse Ox 98 05/17/22 21:10 Weight last 48 hrs Weight 64.183 kg Data NPU : 04/14/22 16:45 04/14/22 16:45 A&P Assessment and plan (1) Drug-induced psychotic disorder: Status: Acute (2) Methamphetamine abuse: Status: Acute (3) Acute psychosis: Status: Acute (4) Alcohol intoxication: Status: Acute Plan This is a 26-year-old female who may have caused permanent psychosis due to chronic methamphetamine abuse, but would need some long-term sobriety success. 1.? Discontinued zyprexa spaniels next.? Advised patient she could use as needed medication at night if she felt inclined.? The goal for Abilify monotherapy.? Continue Abilify 20 mg p.o. every morning. 2.? Continue every 15 minute checks for safety. 3.? Encourage individual, group and milieu therapies. 4.? Encourage sober living treatment after discharge at the highest level of care to which she is willing to commit. 5.? Guardianship granted Involuntary Hold Information 96 Hour Hold: 96 Hour Involuntary Admission: Yes 96 Hour Hold Ending Date: 04/18/22 96 Hour Hold Ending Time: 17:00 Attestations NPU Medical Necessity Statement*: Inpatient hospitalization is medically necessary and the clinically appropriate intervention at this time.? We will initiate med ications and make changes as indicated.?? Likely length of stay 2-4 days. Guardianship granted and currently working on a temporary placement which just needs approval for the beginning of next week which will be followed by inpatient rehab. Coding Level of Care Code Acute Insulation Worker for Kyleigh Valadez Diagnoses Drug-induced psychotic disorder F19.959 Methamphetamine abuse F15.10 Acute psychosis F23 Alcohol intoxication F10.923
[2022-05-18] MEDS: propranolol 20 mg Tablet PO ×2 (08:13→20:15)
[2022-05-18] MEDS: amoxicillin 500 mg Capsule PO ×3 (08:13→20:15)
[2022-05-18] MEDS: thiamine 100 mg Tablet PO (08:13)
[2022-05-18] MEDS: folic acid 1 mg Tablet PO (08:13)
[2022-05-18] MEDS: ARIPiprazole 10 mg Tablet 20 MG PO (08:13)
[2022-05-18] MEDS: benzocaine 20% 7 gm 1 APPLIC MUCOUS MEM ×2 (08:13→17:22)
[2022-05-18] MEDS: multivitamin therapeutic Tablet 1 TAB PO (08:13)
[2022-05-18] MEDS: nicotine 4 mg lozenge MUCOUS MEM ×4 (08:20→18:43)
[2022-05-18] MEDS: hyDROXYzine 25 mg Capsule 50 MG PO (12:45)
--- NOTE | 2022-05-18 12:45 | PC.NURSE ---
PRN MEDS PT C/O ANXIETY. VISTARIL 50 MG GIVEN ORDERED.
[2022-05-18 14:00] VITALS: BP 94/68; PULSE 85; RESP 16; TEMP 36.8; O2SAT 100
[2022-05-18] MEDS: nicotine 2 mg Gum BUCCAL (16:16)
[2022-05-18] MEDS: ibuprofen 800 mg tablet PO (17:22)
[2022-05-18 19:51] VITALS: BP 120/78; PULSE 90; RESP 17; TEMP 36.6; O2SAT 97
[2022-05-18] MEDS: trazodone 50 mg Tablet PO (20:15)
[2022-05-19 06:00] VITALS: BP 102/71; PULSE 85; RESP 16; TEMP 36.8; O2SAT 95
[2022-05-19] MEDS: amoxicillin 500 mg Capsule PO ×2 (09:01→15:44)
[2022-05-19] MEDS: ibuprofen 800 mg tablet PO (09:01)
[2022-05-19] MEDS: multivitamin therapeutic Tablet 1 TAB PO (09:02)
[2022-05-19] MEDS: propranolol 20 mg Tablet PO ×2 (09:02→19:58)
[2022-05-19] MEDS: thiamine 100 mg Tablet PO (09:02)
[2022-05-19] MEDS: ARIPiprazole 10 mg Tablet 20 MG PO (09:02)
[2022-05-19] MEDS: folic acid 1 mg Tablet PO (09:02)
[2022-05-19] MEDS: hyDROXYzine 25 mg Capsule 50 MG PO ×2 (11:36→21:11)
[2022-05-19] MEDS: nicotine 4 mg lozenge MUCOUS MEM (12:58)
[2022-05-19 14:00] VITALS: BP 101/68; PULSE 83; RESP 16; TEMP 37.2; O2SAT 97
--- NOTE | 2022-05-19 15:32 | P.NPUPN_ITS ---
Subjective NPU Medications: Medication Review Details: Patient presents today and reports feeling motivated to go to rehabilitation from here upon completion of her hospitalization. Patient informed about the idea of going to [facility] upon discharge with eventual hope of going to [facility] afterwards for rehabilitation. She reports no side effects from her medication. She reports that she has been able to sleep and has been calmer even in the absence of the recently discontinued Zyprexa. Mental Status Exam MSE Comments: This is a well-nourished, well-developed white female with romaine quate dress, grooming and eye contact.? Possible astigmatism.? No abnormal movements.? Cooperative with exam in no acute distress. Speech was normal rate and volume with limited prosody.? Mood described as content, affect was odd, and inappropriate. ? Thought process remained?linear with some organization but with continued moments of disorganization. ? Thought content: patient denies suicidal or homicidal ideation, there were no delusions reported or noted, she denied any auditory or visual hallucinations. Attention and concentration appeared intact and memory appeared limited and impaired but at baseline. She?s alert and oriented times person and place but limited on purpose.? Insight and judgment appeared impaired and impulse control appeared limited. Vitals/I&O/Wt Last Vital Signs Temp 99 F 05/19/22 14:00 Pulse 83 05/19/22 14:00 Resp 16 05/19/22 14:00 BP 101/68 05/19/22 14:00 Pulse Ox 97 05/19/22 14:00 Weight last 48 hrs Weight 64.183 kg Data NPU : 04/14/22 16:45 04/14/22 16:45 A&P Assessment and plan (1) Drug-induced psychotic disorder: Status: Acute (2) Methamphetamine abuse: Status: Acute (3) Acute psychosis: Status: Acute (4) Alcohol intoxication: Status: Acute Plan 1.? Consider abilify increase to 30mg daily with avoidance of any prn antip sychotic if necessary.? The goal for Abilify monotherapy.? Continue Abilify 20 mg p.o. every morning. 2.? Continue every 15 minute checks for safety. 3.? Encourage individual, group and milieu therapies. 4.? Encourage sober living treatment after discharge at the highest level of care to which she is willing to commit. 5.? Guardianship granted Involuntary Hold Information 96 Hour Hold: 96 Hour Involuntary Admission: Yes 96 Hour Hold Ending Date: 04/18/22 96 Hour Hold Ending Time: 17:00 Attestations NPU Medical Necessity Statement*: Inpatient hospitalization is medically necessary and the clinically appropriate intervention at this time.? We will initiate medications and make changes as indicated.?? Likely length of stay 2-4 days. Guardianship granted and currently working on a temporary placement which just needs approval for the beginning of next week which will be followed by inpatient rehab. Coding Level of Care Code Established Pt Acute Spinning Lathe Operator for Patriciag Fwd Patient Type Established History Problem Focused Exam Problem Focused Medical Decision Making Straight Forward Diagnoses Drug-induced psychotic disorder F19.959 Methamphetamine abuse F15.10 Acute psychosis F23 Alcohol intoxication F10.929
[2022-05-19] MEDS: nicotine 2 mg Gum BUCCAL (18:21)
[2022-05-19] MEDS: trazodone 50 mg Tablet PO (19:58)
[2022-05-19] MEDS: benzocaine 20% 7 gm 1 APPLIC MUCOUS MEM (20:15)
[2022-05-19 20:18] VITALS: BP 105/68; PULSE 89; RESP 17; TEMP 36.6; O2SAT 100
[2022-05-20 06:00] VITALS: BP 100/67; PULSE 77; RESP 16; TEMP 36.7; O2SAT 97
[2022-05-20] MEDS: ibuprofen 800 mg tablet PO (08:18)
[2022-05-20] MEDS: nicotine 2 mg Gum BUCCAL (08:18)
[2022-05-20] MEDS: folic acid 1 mg Tablet PO (08:18)
[2022-05-20] MEDS: thiamine 100 mg Tablet PO (08:18)
[2022-05-20] MEDS: multivitamin therapeutic Tablet 1 TAB PO (08:18)
[2022-05-20] MEDS: ARIPiprazole 10 mg Tablet 20 MG PO (08:18)
[2022-05-20] MEDS: propranolol 20 mg Tablet PO ×2 (08:18→17:00)
[2022-05-20] MEDS: nicotine 4 mg lozenge MUCOUS MEM ×2 (11:26→14:13)
[2022-05-20 13:07] VITALS: BP 124/69; PULSE 89; RESP 17; TEMP 36.8; O2SAT 98
[2022-05-20] MEDS: hyDROXYzine 25 mg Capsule 50 MG PO (13:56)
[2022-05-20] MEDS: OLANZapine 5 mg ODT PO (17:00)
--- NOTE | 2022-05-20 17:49 | W.PM.NPUPNS ---
Subjective NPU Subjective: Patient presents today reporting improved mood and energy. She has been more redirectable on the unit and less isolative. She reports understanding that guardian has been given to her and that she will follow the instructions of the student life vice president and guardian regarding placement. No sleep disturbance. She reports feeling less tired. Mental Status Exam MSE Comments: This is a well-nourished, well-developed white female with adequate dress, grooming and eye contact.? No abnormal movements.? Cooperative with exam in no acute distress. Speech was normal rate and volume with limited prosody.? Mood described as good. , affect remained flat. ? Thought process remained?linear with some organization but with less periods of derailment. ? Thought content: patient denies suicidal or homicidal ideation, there were no delusions reported or noted, she denied any auditory or visual hallucinations. Attention and concentration appeared intact and memory appeared limited but will improvement noted. ? She?s alert and oriented times person and place but still limited regarding purpose. Insight and judgment appeared impaired and impulse control appeared limited. Vitals/I&O/Wt Last Vital Signs Temp 98.3 F 05/20/22 13:07 Pulse 89 05/20/22 13:07 Resp 17 05/20/22 13:07 BP 124/69 05/20/22 13:07 Pulse Ox 98 05/20/22 13:07 Data NPU : 04/14/22 16:45 04/14/22 16:45 A&P Assessment and plan (1) Drug-induced psychotic disorder: Status: Acute (2) Methamphetamine abuse: Status: Acute (3) Acute psychosis: Status: Acute (4) Alcohol intoxication: Status: Acute Plan 1.? Consider abilify increase to 30mg daily with avoidance of any prn antipsychotic if necessary.? Continue Abilify 20 mg p.o. every morning. 2.? Continue every 15 minute checks for safety. 3.? Encourage individual, group and milieu therapies. 4.? Encourage sober living treatment after discharge at the highest level of care to which she is willing to commit. 5.? Guardianship granted Involuntary Hold Information 96 Hour Hold: 96 Hour Involuntary Admission: Yes 96 Hour Hold Ending Date: 04/18/22 96 Hour Hold Ending Time: 17:00 Attestations NPU Medical Necessity Statement*: Inpatient hospitalization is medically necessary and the clinically appropriate intervention at this time.? We will initiate medications and make changes as indicated.?? Likely length of stay 2-4 days. Guardianship granted and currently working on a temporary placement which just needs approval for the beginning of next week which will be followed by inpatient rehab. Coding Level of Care Code Established Pt Acute Fund Manager for Kyleigh Valadez Patient Type Established History Problem Focused Exam Problem Focused Medical Decision Making Straight Forward Diagnoses Drug-induced psychotic disorder F19.959 Methamphetamine abuse F15.10 Acute psychosis F23 Alcohol intoxication F10.929
[2022-05-20 19:58] VITALS: BP 89/58; PULSE 78; RESP 16; TEMP 36.8; O2SAT 95
[2022-05-21 06:00] VITALS: BP 94/57; PULSE 92; RESP 17; TEMP 36.8; O2SAT 97
[2022-05-21] MEDS: multivitamin therapeutic Tablet 1 TAB PO (09:49)
[2022-05-21] MEDS: propranolol 20 mg Tablet PO ×2 (09:49→14:56)
[2022-05-21] MEDS: ibuprofen 800 mg tablet PO (09:49)
[2022-05-21] MEDS: nicotine 4 mg lozenge MUCOUS MEM (09:50)
[2022-05-21] MEDS: thiamine 100 mg Tablet PO (09:50)
[2022-05-21] MEDS: folic acid 1 mg Tablet PO (09:50)
[2022-05-21] MEDS: ARIPiprazole 10 mg Tablet 20 MG PO (09:50)
[2022-05-21] MEDS: nicotine 2 mg Gum BUCCAL ×2 (13:53→16:17)
[2022-05-21] MEDS: OLANZapine 5 mg ODT PO (13:57)
[2022-05-21 14:00] VITALS: BP 113/67; PULSE 100; RESP 15; TEMP 36.7; O2SAT 97
--- NOTE | 2022-05-21 14:13 | PC.NURSE ---
BEHAVIORS PT BECAME VERY AGITATED REGARDING NEXT COURT DATE AND HER PROGRESSION. PT WAS CONFUSED STATING SHE DOES NOT HAVE A GUARDIAN AND SHE NEEDS TO LEAVE AND GO TO REHAB SO SHE CAN PROGRESS AND NOT HAVE A GUARDIAN. THIS RN WENT AND GOT SYSTEM SAFETY MANAGER SO WE COULD ALL TALK AND CLEAR UP PTS CONFUSION. PT STATES SHE IS NOT CONFUSED IT IS THE SYSTEM SAFETY MANAGER. SYSTEM SAFETY MANAGER AND RN ATTEMPTED TO EDUCATE PT SEVERAL TIMES ON WAITING FOR THE PAPER WORK FROM THE COURT SO SHE CAN BE DISCHARGED TO [facility]. PT DID FINALLY AGREE AND SOMEWHAT UNDERSTAND THE PROCESS AND WAITING FOR THE PAPERWORK TO DISCHARGE HER. PT DID REQUEST ZYDIS AND PROPANOLOL DUE TO SEVERE AGITATION AND NOT BEING ABLE TO CALM HERSELF DOWN. PT STATES SHE IS VERY STRESSED DUE TO THE GUARDIANSHIP AND SHE DOES NOT SEE WHY HER GOING ON A BINDER IS A BIG DEAL. THIS RN EDUCATED PT SHE CAN NOT USE DRUGS AGAIN DUE TO HER BRAIN NEEDING TO HEAL. ALL QUESTIONS ANSWERED AND SUPPORT WAS VOICED. MED NURSE DID ADMINISTER PRNS REQUESTED. SEE MARS FOR DETAILS.
[2022-05-21] MEDS: benzocaine 20% 7 gm 1 APPLIC MUCOUS MEM (18:21)
--- NOTE | 2022-05-21 19:17 | P.NPUPN_ITS ---
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 She reports worry about lack of placement at rehab facility but is agreable to placement at rehab facility. No sleep disturbance.? She reports feeling less fatigue. Mental Status Exam MSE Comments: This is a well-nourished, well-developed white female with adequate dress, grooming and eye contact.?? No abnormal movements.? Cooperative with exam in no acute distress. Speech was normal rate and volume with limited prosody.? Mood described as worried? , affect remained flat. ? ? Thought process was perseverative with some confusion noted but with less? periods of derailment. ? ? Thought content: patient denies suicidal or homicidal ideation, there were no delusions reported or noted, she denied any auditory or visual hallucinations. Attention and concentration appeared intact and memory appeared limited but will improvement noted.? ? She?s alert and oriented times person and place but still limited regarding purpose. ? Insight and judgment appeared impaired and impulse control appeared limited. Vitals/I&O/Wt Last Vital Signs Temp 98.0 F 05/21/22 14:00 Pulse 100 05/21/22 14:00 Resp 15 05/21/22 14:00 BP 113/67 05/21/22 14:00 Pulse Ox 97 05/21/22 14:00 Data NPU : 04/14/22 16:45 04/14/22 16:45 A&P Assessment and plan (1) Drug-induced psychotic disorder: Status: Acute (2) Methamphetamine abuse: Status: Acute (3) Acute psychosis: Status: Acute (4) Alcohol intoxication: Status: Acute Plan 1 Increase Abilify 25 mg p.o. every morning. 2.? Continue every 15 minute checks for safety. 3.? Encourage individual, group and milieu therapies. 4.? Encourage sober living treatment after discharge at the highest level of care to which she is willing to commit. 5.? Guardianship granted Involuntary Hold Information 96 Hour Hold: 96 Hour Involuntary Admission: Yes 96 Hour Hold Ending Date: 04/18/22 96 Hour Hold Ending Time: 17:00 Attestations NPU Medical Necessity Statement*: Inpatient hospitalization is medically necessary and the clinically appropriate intervention at this time.? We will initiate medications and make changes as indicated.?? Likely length of stay 2-4 days. Guardianship granted and currently working on a temporary placement which just needs approval for the beginning of next week which will be followed by inpatient rehab. Coding Level of Care Code Established Pt Acute Belting Inspector for Kyleigh Valadez Patient Type Established History Problem Focused Exam Problem Focused Medical Decision Making Straight Forward Diagnoses Drug-induced psychotic disorder F19.959 Methamphetamine abuse F15.10 Acute psychosis F23 Alcohol intoxication F10.929
[2022-05-21 19:56] VITALS: BP 95/62; PULSE 87; RESP 17; TEMP 36.7; O2SAT 96
[2022-05-22 06:00] VITALS: BP 105/71; PULSE 77; RESP 17; TEMP 36.7; O2SAT 98
[2022-05-22] MEDS: ARIPiprazole 10 mg Tablet 25 MG PO (10:41)
[2022-05-22] MEDS: multivitamin therapeutic Tablet 1 TAB PO (10:41)
[2022-05-22] MEDS: folic acid 1 mg Tablet PO (10:41)
[2022-05-22] MEDS: thiamine 100 mg Tablet PO (10:41)
[2022-05-22] MEDS: nicotine 2 mg Gum BUCCAL (10:41)
--- NOTE | 2022-05-22 11:12 | PC.NURSE ---
IN BED RESTING AROUSES TO VOICE. PT APPEARS MORE DEPRESSED TODAY STATES SHE IS READY TO LEAVE AND GO TO HER REHAB SO SHE CAN PROGRESS PT DENIES PAIN. DENIES SI/HI AND AVH AT THIS TIME. ALL QUESTIONS AND SUPPORT VOICED.
--- NOTE | 2022-05-22 13:56 | W.PM.NPUPNS ---
Subjective NPU Subjective: Patient presents today and reported feeling less anxious about what the enterprise application administrator wishes for her to have in regards to rehabilitation. She reports that she will be going to [facility] on discharged and reports being satisfied with that today. She reports no side effects from abilify increase. Mental Status Exam MSE Comments: This is a well-nourished, well-developed white female with adequate dress, grooming and eye contact.?? No abnormal movements.? Cooperative with exam in no acute distress. Speech was normal rate and volume with limited prosody.? Mood described as better but affect appeared mood incongruent and anxious ? ? Thought process remained perseverative with some confusion noted but with less? periods of derailment. ? ? Thought content: patient denies suicidal or homicidal ideation, there were no delusions reported or noted, she denied any auditory or visual hallucinations. Attention and concentration appeared intact and memory appeared limited but will improvement noted.? ? She?s alert and oriented times person and place but still limited regarding purpose. ? Insight and judgment appeared guarded at best and impulse control appeared better. Vitals/I&O/Wt Last Vital Signs Temp 98.1 F 05/22/22 06:00 Pulse 105 H 05/22/22 14:00 Resp 18 05/22/22 14:00 BP 120/77 05/22/22 14:00 Pulse Ox 96 05/22/22 14:00 Data NPU : 04/14/22 16:45 04/14/22 16:45 A&P Assessment and plan (1) Drug-induced psychotic disorder: Status: Acute (2) Methamphetamine abuse: Status: Acute (3) Acute psychosis: Status: Acute Plan 1 Continue Abilify 25 mg p.o. every morning. 2.? Continue every 15 minute checks for safety. 3.? Encourage individual, group and milieu therapies. 4.? Encourage sober living treatment after discharge at the highest level of care to which she is willing to commit. 5.? Guardianship granted Involuntary Hold Information 96 Hour Hold: 96 Hour Involuntary Admission: Yes 96 Hour Hold Ending Date: 04/18/22 96 Hour Hold Ending Time: 17:00 Attestations NPU Medical Necessity Statement*: Inpatient hospitalization is medically necessary and the clinically appropriate intervention at this time.? We will initiate medications and make changes as indicated.?? Likely length of stay 2-4 days. Guardianship granted and currently working on placement for rehabilitation facility as patient remains sober. Coding Level of Care Code Established Pt Acute Pneumatic Tube Repairer for Chg Fwd Patient Type Established History Problem Focused Exam Problem Focused Medical Decision Making Straight Forward Diagnoses Drug-induced psychotic disorder F19.959 Methamphetamine abuse F15.10 Acute psychosis F23
[2022-05-22 14:00] VITALS: BP 120/77; PULSE 105; RESP 18; O2SAT 96
[2022-05-22] MEDS: nicotine 21 mg Patch 1 PATCH TRANSDERMA (14:46)
[2022-05-22] MEDS: propranolol 20 mg Tablet PO ×2 (15:47→22:14)
[2022-05-22] MEDS: hyDROXYzine 25 mg Capsule 50 MG PO (15:47)
[2022-05-22] MEDS: simethicone 80 mg Chew PO (17:05)
[2022-05-22] MEDS: OLANZapine 5 mg ODT PO (19:51)
[2022-05-22 20:08] VITALS: BP 122/84; PULSE 67; RESP 16; TEMP 37.4; O2SAT 97
[2022-05-22] MEDS: trazodone 50 mg Tablet PO (22:14)
[2022-05-23 06:00] VITALS: BP 85/54; PULSE 75; RESP 15; TEMP 36.8; O2SAT 96
[2022-05-23] MEDS: folic acid 1 mg Tablet PO (09:00)
[2022-05-23] MEDS: multivitamin therapeutic Tablet 1 TAB PO (09:00)
[2022-05-23] MEDS: ARIPiprazole 10 mg Tablet 25 MG PO (09:00)
[2022-05-23] MEDS: thiamine 100 mg Tablet PO (09:00)
--- NOTE | 2022-05-23 11:05 | W.PM.NPUPNS ---
Subjective NPU Subjective: Patient presents today and reports good mood today as she heard that she may be going to Rehab at [facility]. ? She reports no side effects from abilify increase and reports that she has been concentrating better. Mental Status Exam MSE Comments: This is a well-nourished, well-developed white female with adequate dress, grooming and eye contact.?? No abnormal movements.? Cooperative with exam in no acute distress. Speech was normal rate and volume with limited prosody.? Mood described as better and affect appeared brighter. ? ? Thought process was superficial and concrete, less derailment noted. ? ? Thought content: patient denies suicidal or homicidal ideation, there were no delusions reported or noted, she denied any auditory or visual hallucinations. Attention and concentration appeared intact and memory appeared limited but will improvement noted.? ? She?s alert and oriented times person and place and time. ? Insight and judgment appeared guarded and at baseline and impulse control appeared better.? Vitals/I&O/Wt Last Vital Signs Temp 98 F 05/23/22 14:00 Pulse 100 05/23/22 14:00 Resp 17 05/23/22 14:00 BP 105/69 05/23/22 14:00 Pulse Ox 97 05/23/22 14:00 Data NPU : 04/14/22 16:45 04/14/22 16:45 A&P Assessment and plan (1) Drug-induced psychotic disorder: Status: Acute (2) Methamphetamine abuse: Status: Acute (3) Acute psychosis: Status: Acute (4) Alcohol intoxication: Status: Acute Plan 1 ? Continue? Abilify 25 mg p.o. every morning. 2.? Continue every 15 minute checks for safety. 3.? Encourage individual, group and milieu therapies. 4.? Encourage sober living treatment after discharge at the highest level of care to which she is willing to commit. 5.? Guardianship granted, likely placement on thursday with discharge. Involuntary Hold Information 96 Hour Hold: 96 Hour Involuntary Admission: Yes 96 Hour Hold Ending Date: 04/18/22 96 Hour Hold Ending Time: 17:00 Attestations NPU Medical Necessity Statement*: Inpatient hospitalization is medically necessary and the clinically appropriate intervention at this time.? We will initiate medications and make changes as indicated.?? Likely length of stay 2-4 days. Guardianship granted and currently working on placement for rehabilitation facility as patient remains sober.? Coding Level of Care Code Established Pt Acute Mechanical Maintenance Supervisor for Chg Fwd Patient Type Established History Problem Focused Exam Problem Focused Medical Decision Making Straight Forward Diagnoses Drug-induced psychotic disorder F19.959 Methamphetamine abuse F15.10 Acute psychosis F23 Alcohol intoxication F10.929
[2022-05-23] MEDS: hyDROXYzine 25 mg Capsule 50 MG PO (11:37)
[2022-05-23] MEDS: ibuprofen 800 mg tablet PO (11:37)
[2022-05-23 14:00] VITALS: BP 105/69; PULSE 100; RESP 17; TEMP 36.6; O2SAT 97
[2022-05-23] MEDS: propranolol 20 mg Tablet PO (16:53)
--- NOTE | 2022-05-23 16:54 | PC.NURSE ---
PRN INDERAL 20 MG GIVEN PO PER PT C/O STATED ANXIETY
[2022-05-23] MEDS: simethicone 80 mg Chew PO (18:00)
[2022-05-23 20:26] VITALS: BP 101/59; PULSE 77; RESP 17; TEMP 36.8; O2SAT 97
[2022-05-23] MEDS: trazodone 50 mg Tablet PO (20:31)
[2022-05-24 06:00] VITALS: BP 98/64; PULSE 85; RESP 17; TEMP 36.8; O2SAT 95
[2022-05-24] MEDS: ARIPiprazole 10 mg Tablet 25 MG PO (08:23)
[2022-05-24] MEDS: thiamine 100 mg Tablet PO (08:23)
[2022-05-24] MEDS: folic acid 1 mg Tablet PO (08:23)
[2022-05-24] MEDS: multivitamin therapeutic Tablet 1 TAB PO (08:23)
--- NOTE | 2022-05-24 11:24 | P.NPUPN_ITS ---
Subjective NPU Subjective: Patient presents today on unit and reports feeling excited about leaving the hospital and reports that she agrees with guardian about needing to get help with her decision making and go into a rehabilitation facility. Mental Status Exam MSE Comments: This is a well-nourished, well-developed white female with adequate dress, grooming and eye contact.?? No abnormal movements.? Cooperative with exam in no acute distress. Speech was normal rate and volume with limited prosody.? Mood described as better and affect appeared brighter. ? ? ? Thought process was superficial and concrete, less derailment noted.? ? ? Thought content: patient denies suicidal or homicidal ideation, there were no delusions reported or noted, she denied any auditory or visual hallucinations. Attention and concentration appeared intact and memory appeared limited but will improvement noted.? ? She?s alert and oriented times person and place and time.? ? Insight and judgment appeared improved from last week? and impulse control appeared better.? Vitals/I&O/Wt Last Vital Signs Temp 98.2 F 05/24/22 06:00 Pulse 85 05/24/22 06:00 Resp 17 05/24/22 06:00 BP 98/64 05/24/22 06:00 Pulse Ox 95 05/24/22 06:00 Data NPU : 04/14/22 16:45 04/14/22 16:45 A&P Assessment and plan (1) Drug-induced psychotic disorder: Status: Acute (2) Methamphetamine abuse: Status: Acute (3) Acute psychosis: Status: Acute (4) Alcohol intoxication: Status: Acute Plan 1 ? Continue? Abilify 25 mg p.o. every morning. 2.? Continue every 15 minute checks for safety. 3.? Encourage individual, group and milieu therapies. 4.? Encourage sober living treatment after discharge at the highest level of care to which she is willing to commit. 5.? Guardianship granted, likely placement on thursday with discharge. Involuntary Hold Information 96 Hour Hold: 96 Hour Involuntary Admission: Yes 96 Hour Hold Ending Date: 04/18/22 96 Hour Hold Ending Time: 17:00 Attestations NPU Medical Necessity Statement*: Inpatient hospitalization is medically necessary and the clinically appropriate intervention at this time.? Patient has guardianship and will be discharged on Thursday to rehabilitation facility. Coding Level of Care Code Established Pt Acute Developer Prover Upholstering for Chg Fwd Patient Type Established History Problem Focused Exam Problem Focused Medical Decision Making Straight Forward Diagnoses Drug-induced psychotic disorder F19.959 Methamphetamine abuse F15.10 Acute psychosis F23 Alcohol intoxication F10.929
[2022-05-24 14:00] VITALS: BP 90/57; PULSE 62; RESP 17; TEMP 36.6; O2SAT 97
[2022-05-24] MEDS: nicotine 21 mg Patch 1 PATCH TRANSDERMA (14:38)
[2022-05-24] MEDS: simethicone 80 mg Chew PO (15:02)
[2022-05-24] MEDS: propranolol 20 mg Tablet PO (18:43)
--- NOTE | 2022-05-24 18:43 | PC.NURSE ---
PRN INDERAL 20 MG GIVEN PO PER PT C/O STATED ANXIETY
[2022-05-24] MEDS: trazodone 50 mg Tablet PO ×2 (19:48→23:29)
[2022-05-24] MEDS: OLANZapine 5 mg ODT PO (21:16)
[2022-05-24 22:00] VITALS: BP 114/79; PULSE 88; RESP 16; TEMP 36.5; O2SAT 97
[2022-05-25 06:00] VITALS: BP 85/52; PULSE 73; RESP 16; TEMP 36.6; O2SAT 96; BMI 25.9
[2022-05-25] MEDS: ARIPiprazole 10 mg Tablet 25 MG PO (09:12)
[2022-05-25] MEDS: thiamine 100 mg Tablet PO (09:13)
[2022-05-25] MEDS: multivitamin therapeutic Tablet 1 TAB PO (09:13)
[2022-05-25] MEDS: folic acid 1 mg Tablet PO (09:13)
--- NOTE | 2022-05-25 11:51 | W.PM.NPUPNS ---
Subjective NPU Subjective: Patient presents today on unit and reports no mood symptoms today as she denies depressed mood. Patient has continued to report difficulties with concentration and reports difficulties with memory. She reports being excited about her discharge to [facility]. She reports no side effects from medication at this time. She has been able to attend groups. She has been able to follow sessions on the milieu, Mental Status Exam MSE Comments: This is a well-nourished, well-developed white female with adequate dress, grooming and eye contact.?? No abnormal movements.? Cooperative with exam in no acute distress. Speech was normal rate and volume with no paraphasic errors noted today.? Mood described as better and affect appeared brighter. ? ? ? Thought process was superficial and concrete, less derailment noted.? ? ? Thought content: patient denies suicidal or homicidal ideation, there were no delusions reported or noted, she denied any auditory or visual hallucinations. Attention and concentration appeared intact and memory appeared limited but will improvement noted.? ? She?s alert and oriented to person and place and time.? ? Insight and judgment appeared improved from last week? and impulse control appeared better.? Vitals/I&O/Wt Last Vital Signs Temp 98 F 05/25/22 14:00 Pulse 96 05/25/22 14:00 Resp 16 05/25/22 14:00 BP 118/74 05/25/22 14:00 Pulse Ox 98 05/25/22 14:00 Weight last 48 hrs Weight 64.183 kg Data NPU : 04/14/22 16:45 04/14/22 16:45 A&P Assessment and plan (1) Drug-induced psychotic disorder: Status: Acute (2) Methamphetamine abuse: Status: Acute (3) Acute psychosis: Status: Acute (4) Alcohol intoxication: Status: Acute Plan 1 ? Continue? Abilify 25 mg p.o. every morning. 2.? Continue every 15 minute checks for safety. 3.? Encourage individual, group and milieu therapies. 4.? Encourage sober living treatment after discharge at the highest level of care to which she is willing to commit. 5.? Guardianship granted, Patient leaving to [facility] on Discharge on Thursday. Involuntary Hold Information 96 Hour Hold: 96 Hour Involuntary Admission: Yes 96 Hour Hold Ending Date: 04/18/22 96 Hour Hold Ending Time: 17:00 Attestations NPU Medical Necessity Statement*: Inpatient hospitalization is medically necessary and the clinically appropriate intervention at this time.? Patient has guardianship and will be discharged on Thursday to rehabilitation facility. Coding Level of Care Code Established Pt Acute Electrical Continuity Tester for Chg Fwd Patient Type Established History Problem Focused Exam Problem Focused Medical Decision Making Straight Forward Diagnoses Drug-induced psychotic disorder F19.959 Methamphetamine abuse F15.10 Acute psychosis F23 Alcohol intoxication F10.929
[2022-05-25] MEDS: nicotine 4 mg lozenge MUCOUS MEM ×2 (13:43→16:51)
[2022-05-25 14:00] VITALS: BP 118/74; PULSE 96; RESP 16; TEMP 36.6; O2SAT 98
[2022-05-25] MEDS: propranolol 20 mg Tablet PO (16:51)
[2022-05-25 17:40] LABS: SARS Covid-2 Antigen Negative (Negative)
[2022-05-25] MEDS: OLANZapine 5 mg ODT PO (19:47)
[2022-05-25] MEDS: trazodone 50 mg Tablet PO ×2 (19:47→22:37)
[2022-05-25 22:00] VITALS: BP 118/74; PULSE 96; RESP 16; TEMP 36.6; O2SAT 98
[2022-05-26 05:59] VITALS: BP 104/72; PULSE 86; RESP 16; TEMP 36.8; O2SAT 96
[2022-05-26] MEDS: multivitamin therapeutic Tablet 1 TAB PO (08:00)
[2022-05-26] MEDS: ARIPiprazole 10 mg Tablet 25 MG PO (08:00)
[2022-05-26] MEDS: folic acid 1 mg Tablet PO (08:00)
[2022-05-26] MEDS: thiamine 100 mg Tablet PO (08:00)
[2022-05-26] MEDS: nicotine 4 mg lozenge MUCOUS MEM (08:02)
--- NOTE | 2022-05-26 09:16 | PC.NURSE ---
[employer] During morning assessment pt was in bed and appeared dishelveled. She stated that she was tired and didn't have much energy. She was informed that her breakfast tray was in the common room but she did not feel like getting up to eat.
[2022-05-26 10:48] VITALS: BP 104/72; PULSE 86; RESP 16; TEMP 36.8; O2SAT 96
[2022-05-26] MEDS: OLANZapine 5 mg ODT PO (13:46)
--- NOTE | 2022-05-26 13:46 | PC.NURSE ---
PRN ZYPREXA ZYDIS 5 MG GIVEN PO PER PT C/O AGITATION. PT UPSET SHE ISN'T GETTING DISCHARGED TODAY. WILL CONT TO MONITOR.
[2022-05-26 14:00] VITALS: BP 107/70; PULSE 89; RESP 16; TEMP 36.6; O2SAT 96
--- NOTE | 2022-05-26 17:54 | W.PM.NPUPNS ---
Subjective NPU Subjective: Patient presents today frustrated about her circumstances. We had initially gotten authorization for discharge and had alluded to her that we would be discharging her to [facility]. However after the morning meeting somehow her guardian raised concerns about cost and got cold feet and retracted the okay we will proceed to proceed with discharge. The facility reported that they would receive patient if he were to discharge. Mental Status Exam MSE Comments: This is a well-nourished, well-developed white female with adequate dress, grooming and eye contact.?? No abnormal movements.? Cooperative with exam in no acute distress. Speech was normal rate and volume.? Mood described as pretty good, affect appeared brighter. Thought process was concrete, less derailment noted.? ? ? Thought content: patient denies suicidal or homicidal ideation, there were no delusions reported or noted, she denied any auditory or visual hallucinations. Attention and concentration appeared intact and memory appeared limited but none were formally tested.? ? She?s alert and oriented to person and place and time.? ? Insight and judgment appeared limited but improving and impulse control appeared better.? Vitals/I&O/Wt Last Vital Signs Temp 98 F 05/26/22 14:00 Pulse 89 05/26/22 14:00 Resp 16 05/26/22 14:00 BP 107/70 05/26/22 14:00 Pulse Ox 96 05/26/22 14:00 Weight last 48 hrs Weight 64.183 kg Data NPU : 04/14/22 16:45 04/14/22 16:45 A&P Assessment and plan (1) Drug-induced psychotic disorder: Status: Acute (2) Methamphetamine abuse: Status: Acute (3) Acute psychosis: Status: Acute (4) Alcohol intoxication: Status: Acute Plan This is a 26-year-old female who may have caused permanent psychosis due to chronic methamphetamine abuse, but would need some long-term sobriety success to determine whether improvement is possible now under guardianship with plans for rehab and long-term oversight of her recovery. 1 ? Continue? Abilify 25 mg p.o. every morning. 2.? Continue every 15 minute checks for safety. 3.? Encourage individual, group and milieu therapies. 4.? Encourage sober living treatment after discharge at the highest level of care to which she is willing to commit. 5.? Guardianship granted, Patient leaving to [facility] on Discharge on Thursday.? Involuntary Hold Information 96 Hour Hold: 96 Hour Involuntary Admission: Yes 96 Hour Hold Ending Date: 04/18/22 96 Hour Hold Ending Time: 17:00 Attestations NPU Medical Necessity Statement*: Inpatient hospitalization is medically necessary and the clinically appropriate intervention at this time.? Patient has guardianship and will be discharged soon as guardianship permission obtained to facility with outside resources. 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
[2022-05-26] MEDS: trazodone 50 mg Tablet PO (19:36)
[2022-05-26] MEDS: propranolol 20 mg Tablet PO (19:37)
[2022-05-26 20:52] VITALS: BP 99/68; PULSE 81; RESP 17; TEMP 36.7; O2SAT 98
[2022-05-27 06:00] VITALS: BP 95/57; PULSE 107; RESP 18; TEMP 36.8; O2SAT 94
[2022-05-27] MEDS: nicotine 2 mg Gum BUCCAL (08:54)
[2022-05-27] MEDS: ARIPiprazole 10 mg Tablet 25 MG PO (08:54)
[2022-05-27] MEDS: thiamine 100 mg Tablet PO (08:55)
[2022-05-27] MEDS: multivitamin therapeutic Tablet 1 TAB PO (08:55)
[2022-05-27] MEDS: folic acid 1 mg Tablet PO (08:55)
[2022-05-27] MEDS: nicotine 4 mg lozenge MUCOUS MEM (11:18)
[2022-05-27] MEDS: OLANZapine 5 mg ODT PO (11:18)
[2022-05-27 13:57] VITALS: BP 117/71; PULSE 95; RESP 17; TEMP 37; O2SAT 99
[2022-05-27] MEDS: nicotine 21 mg Patch 1 PATCH TRANSDERMA (13:57)
[2022-05-27] MEDS: ibuprofen 800 mg tablet PO (17:22)
[2022-05-27] MEDS: benzocaine 20% 7 gm 1 APPLIC MUCOUS MEM (17:23)
--- NOTE | 2022-05-27 17:49 | W.PM.NPUPNS ---
Subjective NPU Subjective: Patient presents today with continued slow and very incremental signs of improvement. She has been more accepting of her circumstance and was very pleased today to find out that her guardian had improved her being transferred to [facility] and that she would be leaving tomorrow which is the first day they could receive her after informed of guardian approval. Otherwise no significant changes. Mental Status Exam MSE Comments: This is a well-nourished, well-developed white female with adequate dress, grooming and eye contact.?? No abnormal movements.? Cooperative with exam in no acute distress. Speech was normal rate and volume.? Mood described as pretty good, affect appeared brighter. Thought process was less concrete, less derailment noted.? ? ? Thought content: patient denies suicidal or homicidal ideation, there were no delusions reported or noted, she denied any auditory or visual hallucinations. Attention and concentration appeared intact and memory appeared limited but none were formally tested.? ? She?s alert and oriented to person and place and time.? ? Insight and judgment appeared limited but improving and impulse control appeared better.? Vitals/I&O/Wt Last Vital Signs Temp 97.6 F 05/27/22 20:20 Pulse 84 05/27/22 20:20 Resp 17 05/27/22 20:20 BP 96/62 05/27/22 20:20 Pulse Ox 96 05/27/22 20:20 O2 Del Method 05/27/22 13:57 05/27/22 05/27/22 05/28/22 14:59 22:59 06:59 Intake Total 960 / 960 Balance 960 / 960 Data NPU : 04/14/22 16:45 04/14/22 16:45 A&P Assessment and plan (1) Drug-induced psychotic disorder: Status: Acute (2) Methamphetamine abuse: Status: Acute (3) Acute psychosis: Status: Acute (4) Alcohol intoxication: Status: Acute Plan This is a 26-year-old female who may have caused permanent psychosis due to chronic methamphetamine abuse, but would need some long-term sobriety success to determine whether improvement is possible now under guardianship with plans for rehab and long-term oversight of her recovery. 1 ? Continue? Abilify 25 mg p.o. every morning. We will discharge on 30 mg daily. 2.? Continue every 15 minute checks for safety. 3.? Encourage individual, group and milieu therapies. 4.? Encourage sober living treatment after discharge at the highest level of care to which she is willing to commit. 5.? Guardianship granted, Patient leaving to [facility] on Discharge tomorrow. Involuntary Hold Information 96 Hour Hold: 96 Hour Involuntary Admission: Yes 96 Hour Hold Ending Date: 04/18/22 96 Hour Hold Ending Time: 17:00 Attestations NPU Medical Necessity Statement*: Inpatient hospitalization is medically necessary and the clinically appropriate intervention at this time.? Patient has guardianship and will be discharged tomorrow. Coding Level of Care Code Acute Music Industry Internship for Kyleigh Valadez Diagnoses Drug-induced psychotic disorder F19.959 Methamphetamine abuse F15.10 Acute psychosis F23 Alcohol intoxication F10.929
[2022-05-27 20:20] VITALS: BP 96/62; PULSE 84; RESP 17; TEMP 36.4; O2SAT 96
[2022-05-27] MEDS: propranolol 20 mg Tablet PO (20:43)
[2022-05-27] MEDS: trazodone 50 mg Tablet PO (20:43)
[2022-05-27] MEDS: simethicone 80 mg Chew PO (20:44)
[2022-05-28 06:00] VITALS: BP 90/57; PULSE 80; RESP 16; TEMP 36.9; O2SAT 94
--- NOTE | 2022-05-28 07:28 | P.NPUDS_ITS ---
Diagnoses at Discharge Discharge Diagnosis (1) Drug-induced psychotic disorder: Status: Acute (2) Methamphetamine abuse: Status: Acute (3) Acute psychosis: Status: Acute (4) Alcohol intoxication: Status: Resolved Reason for Visit Reason for Visit: PSYCH Brief History: History of Present Illness Shayla Goss is a 26 year old female admitted through our emergency department with the following report: Patient is a 26-year-old female who presents to the ED today escorted by police with a 96-hour hold. Police state they were dispatched to patient's residence and state that patient was acting bizarre and erratically. Patient was seen in our facility recently and admitted to [facility] for drug-induced psychosis. Upon my initial examination it is difficult to elicit any type of history from her as her speech is bizarre and tangential. complaint: other (psychosis) Affidavit: On April 14, 2022 officers were dispatched to [address] [place] [address] for reported physical disturbance. I arrived on the scene and observed to officers struggling with Ms. Prabhakar because she was handcuffed. Ms. Dumont is cuffs were loose and had not yet been double lock. Ms. Goss was rambling and another language that did not make sense and appeared to be gibberish. Ms. Goss co ntinued sitting in, rambling on about her professional appearance and she did not make sense. Wolfgang could not answer questions and she continued to ramble and make odd noises. She was difficult to talk to because she was in bed and did not want to wake up. She says that she is here because people with cars do not know where to draw people off . I could not get from her where she wanted to be or whether she was dropped off. She said that she was dropped off for the police were. The police said that they found her at her residence. She denies any problems before the police wrestled her to the ground. She is now in pain because of being wrestled to the ground. She denies any alcohol, marijuana or methamphetamine abuse recently. Her urine drug screen was positive for benzodiazepines and marijuana. Below as per discharge summary from when she was here last month: Discharge Diagnosis (1) Drug-induced psychotic disorder: Status: Acute (2) Methamphetamine abuse: Status: Acute MHE/96 hour hold Brief History: History of Present Illness Shayla Goss is a 26 year old female admitted through our emergency department with the following report: 26-year-old female presented to the emergency room after being evidently dropped off by an unknown male. She was behaving erratically and police were called and they arrived she had tangential thinking was not aware of time place or person. She has a history of substance abuse. When I came to see the patient she is difficult to engage, she answers questions with tangential thinking and deflects. She declines to answer questions about suicidal thoughts or ideation. She repeatedly states that she just needs documentation so that she can get an appointment and see how her day will go. When I try to follow her line of thinking she is unable to provide any further answers. We did contact her father who evidently has been estranged from her and could not give us any history. She does not appear to have any auditory visual hallucinations. Urine drug screen was positive for methamphetamine She says that she woke up yesterday and her lover, Wade, said that she needed to go to the hospital. He said that she needed mental help. She says that he must not have liked her mood but she does not really know why he thought that. They have been together for about 3 months. She says that he has treated her well up until now. She says that when he brought her here she was resistant to getting out of the car and he evidently called the police. The police say that they came and found her walking her dog and was not able to say where she was. She says that she was in [place] but did not know what states she was in. She did not know what day it was. She says that she is worried because she does not know where her dog is. She thinks that her lover may have made her go to the hospital so that he could get her dog. She has had her dog for 2 years since it was a puppy. She is very worried because she does not know where her dog is. She denies any difficulties with depression, anxiety or mood swings. She denies using methamphetamine recently. She has had her last use was 3 or 6 months ago and she never used very much. She said that she has worked quite a bit in the last year. She has not worked in the last 3 or 4 months. She could not really explain that. She says that she gets subsidized housing and that [employer] helps pay her rent. She gets food stamps. She says she was working up until about 4 months ago. Her explanation of not working since then is really difficult to understand. 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 She says that she has been living in her current apartment for about 1 year. She says that her childhood was fine. She denies any emotional difficulty during her teenage years. She says that she graduated from high school. She does not speak much with her mother or father. The emergency room talk with her father who said that he is estranged from her. The emergency room doctor told me that it was because of her drug use. When I asked her about it she had tears in her eyes but did not have an explanation about why she was estranged from her parents. She says they just do not talk. She denies having any emotional difficulties. She denies prior hospitalization. She denies any mental health treatment. She denies difficulty with alcohol, marijuana or methamphetamine. She was informed that she was on a 96-hour hold and that we needed to watch her to make sure that it was safe for her to be released. Hospital Course Hospital Course She slowly acclimated to the individual, group and milieu therapies provided. She was started on Zyprexa 10 mg at bedtime. She was told repeatedly that it seems that she has damaged her brain with her alcohol and drug abuse and she needs to stop so that they can heal as much as possible. tolerated these doses and showed steady improvement during her stay. She was able to contract for safety outside hospital prior to discharge. During the hospitalization, patient had routine laboratory studies which were within normal limits except for few outliers. Additionally there was a general medical evaluation which was also within normal limits and revealed no new acute processes. Discharge Summary: At the time of discharge, lethality was denied and psychosis was resolving. Her thinking continued to be somewhat disorganized. Mood and anxiety were well managed. Patient endorsed a plan to follow-up with the aftercare recommendati ons of the treatment team. Patient was evaluated and deemed to be absent credible lethality, and had achieved the maximum benefit from an inpatient hospitalization, so was discharged. Hospital Course Hospital Course She slowly acclimated to the individual, group and milieu therapies provided. It was identified likely from her last hospitalization that she had what appeared to be permanent damage from the methamphetamine use. It certainly possible that it is just going to be a very slow incremental recovery that would demand a year sobriety able to get back to some semblance of her previous cognitive self but is unclear that will ever happen. She was placed on a 21-day hold that had a guardianship hearing and a guardian was appointed. There was significant difficulty in getting her placed in a residential facility with a plan to go to rehab and then return to some residential living. That finally occurred. She had an SFA residual mild expressive aphasia that really complicated her ability to make informed consent. She was able to contract for safety outside of the hospital. During the hospitalization, patient had routine laboratory studies which were within normal limits except for few outliers. Additionally there was a general medical evaluation which was also within normal limits and revealed no new acute processes. Discharge Summary: At the time of discharge, lethality was denied and psychosis was resolving. Mood and anxiety were well managed. Patient endorsed a plan to avoid all drugs of abuse and follow-up with the aftercare recommendations of the treatment team. Patient was evaluated and deemed to be absent credible lethality, and had achieved the maximum benefit from an inpatient hospitalization, so was discharged. Involuntary Hold Information 96 Hour Hold: 96 Hour Involuntary Admission: Yes 96 Hour Hold Ending Date: 04/18/22 96 Hour Hold Ending Time: 17:00 Mental Status Exam MSE Comments: This is a well-nourished, well-developed white female with adequate dress, grooming and eye contact.?? No abnormal movements.? Cooperative with exam in no acute distress. Speech was normal rate and volume.? Mood described as pretty good, affect appeared brighter. Thought process was less concrete, less derailment noted.? ? ? Thought content: patient denies suicidal or homicidal ideation, there were no delusions reported or noted, she denied any auditory or visual hallucinations. Attention and concentration appeared intact and memory appeared limited but none were formally tested.? ? She?s alert and oriented to person and place and time.? ? Insight and judgment appeared limited but improving and impulse control appeared better.? Discharge Data Studies Completed and Pending: Laboratory Results WBC 9.6 10^3/uL (4.0- 10.0) 04/14/22 16:45 RBC 4.19 10^6/uL (4.1 -5.3) 04/14/22 16:45 Hgb 13.1 g/dL (11.5-1 5.3) 04/14/22 16:45 Hct 36.6 % (37.0-47.0 ) L 04/14/22 16:45 MCV 87.4 fl (81-99) 04/14/22 16:45 MCH 31.3 pg (28.0-34. 0) 04/14/22 16:45 MCHC 35.8 g/dL (30.0-3 6.0) 04/14/22 16:45 RDW 11.9 % (12.1-15.1 ) L 04/14/22 16:45 Plt Count 368 10^3/cmm (130 -400) 04/14/22 16:45 MPV 8.7 fL (7.4-10.4) 04/14/22 16:45 Neut % (Auto) 66.7 % 04/14/22 16:45 Lymph % (Auto) 25.5 % 04/14/22 16:45 Stone % (Auto) 5.3 % 04/14/22 16:45 Eos % (Auto) 1.8 % 04/14/22 16:45 Baso % (Auto) 0.5 % 04/14/22 16:45 Neut # (Auto) 6.38 10^3/uL (1.8 -7.7) 04/14/22 16:45 Lymph # (Auto) 2.4 10^3/uL (0.8- 4.8) 04/14/22 16:45 Stone # (Auto) 0.5 10^3/uL (0.2- 0.9) 04/14/22 16:45 Eos # (Auto) 0.2 10^3/uL (0.0- 0.8) 04/14/22 16:45 Baso # (Auto) 0.1 10^3/uL (0.0- 0.1) 04/14/22 16:45 Nucleated RBC % (a uto) 0 % 04/14/22 16:45 Nucleated RBCs # 0.0 /100WBC 04/14/22 16:45 Sodium 144 mmol/L (136-1 45) 04/14/22 16:45 Potassium 3.7 mmol/L (3.5-5 .1) 04/14/22 16:45 Chloride 108 mmol/L (98-10 7) H 04/14/22 16:45 Carbon Dioxide 24 mmol/L (22-29) 04/14/22 16:45 Anion Gap 15.7 (5-19) 04/14/22 16:45 BUN 9 mg/dL (6-20) 04/14/22 16:45 Creatinine 0.6 mg/dL (0.5-0. 9) 04/14/22 16:45 GFR Calculation 119.9 mL/min (90- 130) 04/14/22 16:45 Glucose 80 mg/dL (65-115) 04/14/22 16:45 Calculated Osmolal ity 296 mOsm/kg (285- 295) H 04/14/22 16:45 Calcium 8.2 mg/dL (8.5-10 .5) L 04/14/22 16:45 Total Bilirubin 0.2 mg/dL (0.15-1 .2) 04/14/22 16:45 AST 21 U/L (0-32) 04/14/22 16:45 ALT 17 U/L (0-33) 04/14/22 16:45 Alkaline Phosphata se 61 IU/L (35-105) 04/14/22 16:45 Total Protein 7.0 g/dL (6.6-8.7 ) 04/14/22 16:45 Albumin 4.0 g/dL (3.5-5.2 ) 04/14/22 16:45 Globulin 3.0 g/dL (1.3-4.6 ) 04/14/22 16:45 HCG, Qual Negative (Negati ve) 04/14/22 16:45 Urine HCG, Qual Negative (Negati ve) 04/20/22 12:45 Salicylates < 0.3 mg/dL (3-10 ) L 04/14/22 16:45 Urine Opiates Scre en Negative ng/mL (N egative) 04/14/22 20:45 Acetaminophen < 5.0 ug/mL (10-3 0) L 04/14/22 16:45 Ur Barbiturates Sc reen Negative ng/mL (N egative) 04/14/22 20:45 Ur Phencyclidine S crn Negative ng/mL (N egative) 04/14/22 20:45 Ur Amphetamines Sc reen Negative ng/mL (N egative) 04/14/22 20:45 U Benzodiazepines Scrn Positive ng/mL (N egative) H 04/14/22 20:45 Urine Cocaine Scre en Negative ng/mL (N egative) 04/14/22 20:45 U Marijuana (THC) Screen Positive ng/mL (N egative) H 04/14/22 20:45 Ethyl Alcohol 136 mg/dL (0-10) H 04/14/22 16:45 SARS-CoV-2 Ag (Rap id) Negative (Negati ve) 05/25/22 17:05 Vitals: Last Vital Signs Temp 98.4 F 05/28/22 06:00 Pulse 80 05/28/22 06:00 Resp 16 05/28/22 06:00 BP 90/57 05/28/22 06:00 Pulse Ox 94 05/28/22 06:00 O2 Del Method 05/27/22 13:57 Discharge Plan Discharge Patient Disposition: Home Condition: Stable Prescriptions: New trazodone 50 mg Tablet 50 mg PO BEDTIME PRN (Reason: Insomnia) 30 Days Qty: 30 1RF propranolol 20 mg Tablet 20 mg PO TID PRN (Reason: anxiety) 30 Days Qty: 30 1RF olanzapine 5 mg Tablet,Disintegrating 5 mg PO DAILY PRN (Reason: Agitation/Psychosis) 30 Days Qty: 30 1RF Vitamin B-1 (mononitrate) 100 mg Tablet 100 mg PO DAILY 30 Days Qty: 30 1RF aripiprazole 30 mg tablet 30 mg PO DAILY 30 Days Qty: 30 1RF Discontinued sulfamethoxazole-trimethoprim 800-160 mg tablet 1 tab PO BID@0900,2100 olanzapine 10 mg Tablet 10 mg PO BEDTIME 30 Days Qty: 30 1RF Discharge Orders: Discharge Order (Routine); Ordered 05/28/22 Ordered By: David Marquez Referrals: [facility] [Other] [facility] [Other] Discharge Diet: Regular Discharge Activity: Resume usual activity Patient Instructions: Generalized Anxiety Disorder, Depression, Propranolol (By mouth), Olanzapine (By mouth) (Zyprexa, Zyprexa Zydis), Aripiprazole (By mouth), Methamphetamine Use Disorder (ED), Opioid Safety Discharge Attestations [facility] Time Spent in Discharge Care*: less than 30 min Specific Discharge Activities: Specific discharge activities: educating patient, discussing with showcase trimmer/social workers/dc planners, documenting/other paperwork and evaluating patient/reviewing data Coding Level of Care Code Acute Chg DC note Diagnoses Drug-induced psychotic disorder F19.959 Methamphetamine abuse F15.10 Acute psychosis F23 Alcohol intoxication F10.929
[2022-05-28] MEDS: ARIPiprazole 10 mg Tablet 25 MG PO (09:05)
[2022-05-28] MEDS: multivitamin therapeutic Tablet 1 TAB PO (09:06)
[2022-05-28] MEDS: folic acid 1 mg Tablet PO (09:06)
[2022-05-28] MEDS: thiamine 100 mg Tablet PO (09:06)
[2022-05-28 09:47] VITALS: BP 90/57; PULSE 80; RESP 16; TEMP 36.9; O2SAT 94
== END 2022-05-28 11:19 | disposition skilled nursing facility (03) | DRG 897 ==
LOC: ER 18:34 → NP 19:44
PROVIDERS: Physician Assistant; Psychiatry & Neurology Psychiatry; Admitting Provider Psychiatry & Neurology Psychiatry; Emergency Provider Emergency Medicine; Visit Provider Psychiatry & Neurology Psychiatry
DX: F15.159 Other stimulant abuse with stimulant-induced psychotic disorder, unspecified (principal); F15.10 Other stimulant abuse, uncomplicated; F10.129 Alcohol abuse with intoxication, unspecified; F17.200 Nicotine dependence, unspecified, uncomplicated
CPT/HCPCS: 80053; 80306; 80307; 81025; 84703; 85025; 87426; 93005; 96372; 97150; 97165; 99285; J1630; J2060; Q0162

== ENCOUNTER 2022-10-25 02:12 | Inpatient (IN) | payer BC, SELFPAY ==
[2022-10-25] VITALS (8 sets, daily range): BP systolic 94–150; BP diastolic 67–94; PULSE 78–123; RESP 16–18; TEMP 36.7; O2SAT 93–100
--- NOTE | 2022-10-25 02:22 | ECG_ITS ---
[facility] Test Date: 2022-10-25 Pat Name: Shayla Goss Department: Room: Gender: Female Fuel Handler: : [id number] Requested By: Brian Rodriguez Order Number: [id number] Masha MD: Yenni Hobbs M.D. Measurements Intervals [place] Rate: 122 P: 69 GA: 108 QRS: 53 QRSD: 88 T: 52 QT: 293 QTc: 419 Interpretive Statements SINUS TACHYCARDIA WITH SHORT GA INTERVAL Compared to ECG 04/27/2022 13:41:28 Short GA interval now present Sinus rhythm no longer present Electronically Signed On 10-25-2022 10:55:10 ELECTRONIC GLUING MACHINE OPERATOR by Yenni Hobbs M.D. [id number]
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
[2022-10-25] MEDS: LORazepam 2 mg/mL INJ 1 mL IM (03:42)
[2022-10-25] MEDS: ziprasidone 20 mg/mL SDV IM (03:43)
[2022-10-25 05:00] LABS: Alanine Aminotransferase 14 U/L (0-33); Albumin Level 4.8 g/dL (3.5-5.2); Alcohol Level 136 mg/dL (0-10); Alkaline Phosphatase 82 U/L (35-105); Blood Urea Nitrogen 8 mg/dL (6-20); Calcium 9.2 mg/dL (8.5-10.5); Carbon Dioxide 21 mmol/L (22-29); Chloride 104 mmol/L (98-107); Globulin 2.9 g/dL (1.3-4.6); Glucose 92 mg/dL (65-115); Osmolality Calculated 288 mOsm/kg (285-295); Sodium 140 mmol/L (136-145); Thyroid Stimulating Hormone 0.74 uIU/mL (0.27-4.20); Total Bilirubin 0.3 mg/dL (0.15-1.2); Total Protein 7.7 g/dL (6.6-8.7)
[2022-10-25 05:08] LABS: Acetaminophen < 5.0 ug/mL (10-30); Anion Gap 19.3 (5-19); Salicylate < 0.3 mg/dL (3-10)
[2022-10-25 05:09] LABS: Aspartate Amino Transferase 22 U/L (0-32); Potassium 4.3 mmol/L (3.5-5.1)
[2022-10-25 05:13] LABS: Basophils # 0.1 10^3/uL (0.0-0.1); Basophils % 0.9 %; Eosinophils # 0.3 10^3/uL (0.0-0.8); Eosinophils % 4.4 %; Hematocrit 43.8 % (37.0-47.0); Hemoglobin 14.8 g/dL (11.5-15.3); Lymphocytes # 1.8 10^3/uL (0.8-4.8); Lymphocytes % 32.3 %; Mean Corpuscular HGB Conc 33.8 g/dL (30.0-36.0); Mean Corpuscular Hemoglobin 29.3 pg (28.0-34.0); Mean Corpuscular Volume 86.7 fl (81-99); Mean Platelet Volume 8.7 fL (7.4-10.4); Monocytes # 0.3 10^3/uL (0.2-0.9); Monocytes % 5.3 %; Neutrophils # 3.22 10^3/uL (1.8-7.7); Neutrophils % 56.9 %; Nucleated Red Blood Cells % 0 %; Platelet Count 348 10^3/cmm (130-400); Red Blood Count 5.05 10^6/uL (4.1-5.3); Red Cell Distribution Width 13.2 % (12.1-15.1); White Blood Count 5.7 10^3/uL (4.0-10.0)
[2022-10-25 05:25] LABS: INR 1.03 (0.8-1.2)
[2022-10-25 05:29] LABS: HCG Qualitative Urine. Negative (Negative)
[2022-10-25 05:33] LABS: Glucose Urine UA Norm (Normal); Protein Urine Neg (Negative); Specific Gravity, Urine 1.015 (1.005-1.030); Urine Appearance Clear (CLEAR); Urine Color Yellow (Yellow); pH Urine 6 (5-7)
[2022-10-25 05:34] LABS: Add Urine Microscopic? YES; Bacteria Urine TRACE /hpf; Bilirubin Urine Neg (Negative); Blood Urine 2+ (Negative); Ketones Urine Negative (Negative); Leukocyte Esterase Urine Negative (Negative); Nitrate Urine Negative (Negative); RBC Urine 0-4 /hpf (0-2); Squamous Epithelial Cell Urine RARE /hpf (0-5); Urobilinogen Urine Norm (Negative); WBC Urine RARE /hpf (0-5)
[2022-10-25 05:35] LABS: Amphetamines Screen Urine Positive (Negative); Barbiturates Screen Urine Negative (Negative); Benzodiazepines Screen Urine Negative (Negative); Cocaine Screen Urine Negative (Negative); Opiate Screen Urine Negative (Negative); PCP Screen Urine Negative (Negative); THC Screen Urine Negative (Negative)
--- NOTE | 2022-10-25 10:57 | PC.NURSE ---
Pt arrived to unit via wheelchair accompanied by ED staff and security. Pt signed her HIPAA form only and wouldn't sign anything else. Pt assisted into her room; gait was very ataxic. Physical assist provided. Skin check showed small pimple-like areas scattered over the pt's body; no drainage. Pt aware of her name; didn't know why she was here. When staff informed pt, she said that isn't right. Attempted to start pt's admission process, but pt closed her eyes and wouldn't answer any questions. When name called again, pt said she'd answer admission questions later. Pt cautioned about getting up; changing positions slowly and getting her bearings before attempting to stand. Offer to assist pt to the bathroom. She declined the need to go.
--- NOTE | 2022-10-25 15:10 | PC.NURSE ---
Addendum entered by Brittany Knight RN 10/25/22 15:19: Apical HR regular. Original Note: Attempted to complete pt's admission. Pt awakened to staff tapping on her bed as she didn't respond to her name being called. Pt wouldn't answer any questions, just mumbled. Pt agreeable to allow staff to complete a physical assessment. Lungs have inspiratory and expiratory wheezing throughout. No cough noted. Pt appears in no respiratory distress. Color pink, skin warm and dry. Abd active x 4. Pedal pulses palpable bilat. No edema noted. Pt resumed resting with eyes closed; respirations even and unlabored.
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
[2022-10-26 05:56] VITALS: BP 117/67; PULSE 78; RESP 18; TEMP 36.7; O2SAT 93
[2022-10-26] MEDS: multivitamin therapeutic Tablet 1 TAB PO (08:34)
[2022-10-26] MEDS: thiamine 100 mg Tablet PO (08:34)
[2022-10-26] MEDS: folic acid 1 mg Tablet PO (08:34)
[2022-10-26] MEDS: ibuprofen 600 mg Tablet PO (13:14)
[2022-10-26 14:00] VITALS: BP 124/74; PULSE 95; RESP 20; TEMP 37.4; O2SAT 98
--- NOTE | 2022-10-26 15:00 | W.PM.NPUPNS ---
Subjective NPU Subjective: Patient presents today much more verbal and having some disorganization. She is mostly tearful during the interview expressing that somehow she did wrong by being forced to come to the hospital on [place] she could not give a chronological history of what happened after we discharged her in the summer, continuing to say that was a different time. She could not elaborate. She cannot explain the positive UDS for amphetamines or her positive BAL. She just kept limiting about how upset she was that this person put her in this situation. She got upset when I suggested that her drinking and possibly using methamphetamine again might have contributed to her being in the situation again. Only saying I was done with this conversation now, after me saying that. A friend named Wade gave his number and has her permission for us to get collateral information. Mental Status Exam MSE Comments: This is a well-nourished, well-developed white female in hospital scrubs with limited grooming and eye contact.?? Poor dentition no abnormal movements except for psychomotor agitation. Mostly cooperative with exam in moderate to extreme distress. Speech was normal rate and volume.? Mood described as upset, affect congruent. Thought process was linear at times and disorganized at others.? ? ? Thought content: patient denies suicidal or homicidal ideation, there were no delusions reported, but paranoia and guardedness noted, she denied any auditory or visual hallucinations. Attention and concentration appeared limited and memory appeared limited but none were formally tested.? ? She?s alert and oriented to person and place and time.? ? Insight, judgment and impulse control appear impaired..? Vitals/I&O/Wt Last Vital Signs Temp 99.3 F 10/26/22 14:00 Pulse 95 10/26/22 14:00 Resp 18 10/27/22 06:00 BP 124/74 10/26/22 14:00 Pulse Ox 98 10/26/22 14:00 O2 Del Method 10/26/22 05:56 Data NPU 10/25/22 04:59 10/25/22 04:18 A&P Assessment and plan (1) Drug-induced psychotic disorder: (2) Methamphetamine abuse: (3) Acute psychosis: (4) Alcohol intoxication: Plan This is a 27-year-old female who has been seen in the past with concern for permanent psychosis likely due to chronic methamphetamine abuse, presenting with law enforcement with positive BAL and positive UDS for amphetamines with altered mental status with limited arousability. 1 ? Continue?current medication. We will determine how adherence has been on the medications that helped stabilize her during her summer hospitalization this year. 2.? Continue every 15 minute checks for safety. 3.? Encourage individual, group and milieu therapies. 4.? Encourage sober living treatment after discharge at the highest level of care to which she is willing to commit. 5.? Get collateral information on her guardianship and her stay at [facility] Involuntary Hold Information 96 Hour Hold: 96 Hour Involuntary Admission: Yes 96 Hour Hold Ending Date: 04/18/22 96 Hour Hold Ending Time: 17:00 Attestations NPU Medical Necessity Statement*: Inpatient hospitalization is medically necessary and the clinically appropriate intervention at this time. We will initiate medications and make changes as indicated. Likely length of stay 5-7 days Coding Level of Care Code Acute Land Degradation Analyst for Kyleigh Valadez Diagnoses Drug-induced psychotic disorder F19.959 Methamphetamine abuse F15.10 Acute psychosis F23 Alcohol intoxication F10.929
[2022-10-26] MEDS: nicotine 2 mg Gum BUCCAL (16:20)
[2022-10-26 20:00] VITALS: RESP 16
[2022-10-27 06:00] VITALS: RESP 18
--- NOTE | 2022-10-27 07:09 | W.PM.NPUPNS ---
Subjective NPU Subjective: Patient presents today somewhat emotional about being here. She continues the theme from yesterday of it being unfair that she is being kept here on the holidays. Reported that she has done nothing wrong. We discussed the fact that her alcohol use and more importantly the methamphetamine use likely played a huge factor in her being here and she was very resistant to that conversation. Mental Status Exam MSE Comments: This is a well-nourished, well-developed white female in hospital scrubs with limited grooming and eye contact.?? Poor dentition no abnormal movements except for psychomotor agitation. Mostly cooperative with exam in moderate to extreme distress. Speech was normal rate and volume.? Mood described as frustrated, affect congruent. Thought process was linear at times and disorganized at others.? ? ? Thought content: patient denies suicidal or homicidal ideation, there were no delusions reported, but paranoia and guardedness noted, she denied any auditory or visual hallucinations. Attention and concentration appeared limited and memory appeared limited but none were formally tested.? ? She?s alert and oriented to person and place and time.? ? Insight, judgment and impulse control appear impaired..? Vitals/I&O/Wt Last Vital Signs Temp 99.3 F 10/26/22 14:00 Pulse 95 10/26/22 14:00 Resp 18 10/27/22 06:00 BP 124/74 10/26/22 14:00 Pulse Ox 98 10/26/22 14:00 O2 Del Method 10/26/22 05:56 Data NPU 10/25/22 04:59 10/25/22 04:18 A&P Assessment and plan (1) Drug-induced psychotic disorder: (2) Methamphetamine abuse: (3) Acute psychosis: (4) Alcohol intoxication: Plan This is a 27-year-old female who has been seen in the past with concern for permanent psychosis likely due to chronic methamphetamine abuse, presenting with law enforcement with positive BAL and positive UDS for amphetamines with altered mental status with limited arousability. 1 ? Continue?current medication. We will determine how adherence has been on the medications that helped stabilize her during her summer hospitalization this year. 2.? Continue every 15 minute checks for safety. 3.? Encourage individual, group and milieu therapies. 4.? Encourage sober living treatment after discharge at the highest level of care to which she is willing to commit. 5.? Get collateral information on her guardianship and her stay at [facility] Involuntary Hold Information 96 Hour Hold: 96 Hour Involuntary Admission: Yes 96 Hour Hold Ending Date: 04/18/22 96 Hour Hold Ending Time: 17:00 Attestations NPU Medical Necessity Statement*: Inpatient hospitalization is medically necessary and the clinically appropriate intervention at this time. We will initiate medications and make changes as indicated. Likely length of stay 5-7 days Coding Level of Care Code Acute Senior Systems Administrator for Kyleigh Valadez Diagnoses Drug-induced psychotic disorder F19.959 Methamphetamine abuse F15.10 Acute psychosis F23 Alcohol intoxication F10.929
[2022-10-27] MEDS: thiamine 100 mg Tablet PO (09:15)
[2022-10-27] MEDS: folic acid 1 mg Tablet PO (09:15)
[2022-10-27] MEDS: multivitamin therapeutic Tablet 1 TAB PO (09:15)
[2022-10-27] MEDS: ibuprofen 600 mg Tablet PO (10:35)
[2022-10-27] MEDS: ARIPiprazole 30 mg Tablet 15 MG PO (13:16)
[2022-10-27] MEDS: OLANZapine 5 mg ODT PO (13:17)
[2022-10-27 14:00] VITALS: BP 124/74; PULSE 95; RESP 18; TEMP 37.4; O2SAT 98
[2022-10-27 15:00] VITALS: BP 118/82; PULSE 83; RESP 18; TEMP 36.4; O2SAT 98
[2022-10-27] MEDS: neomycin-poly-bacitracin oint 28 gm 1 APPLIC TOPICAL (17:18)
[2022-10-27 19:42] VITALS: RESP 16
[2022-10-28 06:00] VITALS: RESP 16
[2022-10-28] MEDS: ARIPiprazole 30 mg Tablet 15 MG PO (12:08)
[2022-10-28 14:00] VITALS: BP 113/71; PULSE 96; RESP 18; O2SAT 100
[2022-10-28] MEDS: OLANZapine 5 mg ODT PO (14:03)
--- NOTE | 2022-10-28 16:53 | W.PM.NPUPNS ---
Subjective NPU Subjective: Patient remains unclear as to the context of why she has been hospitalized at the neuropsychiatric unit. She had stated that she had been able to manage her own care despite having previously been under guardianship. The patient had reported that the previous residential care facility that she had been placed at that letter . She minimized any possibility that alcohol or methamphetamine could be playing a role in her current hospitalization. Patient continued to appear somewhat confused on review and was agitated at times requiring the use of a as needed medication yesterday. She had reported that she would be able to live with friends of hers when she is ready for discharge. Patient continued to report compliance with her Abilify but stated that the medications had caused her to feel worse although she was unable to clearly describe what was worse. Mental Status Exam MSE Comments: This is a well-nourished, well-developed white female in hospital scrubs with limited grooming and eye contact.?? Poor dentition no abnormal movements except for psychomotor agitation. Mostly cooperative with exam in moderate to extreme distress. Speech was normal rate and volume.? Mood described as mad. affect was mood congruent and irritable. Thought process was disorganized. ? ? Thought content: patient denies suicidal or homicidal ideation, there were no delusions reported, She denied any auditory or visual hallucinations. Attention and concentration appeared limited and memory appeared limited but none were formally tested.? ? She?s alert and oriented to person and place but not date or time.? ? Insight, judgment and impulse control appear impaired..? Vitals/I&O/Wt Last Vital Signs Temp 97.6 F 10/27/22 15:00 Pulse 96 10/28/22 14:00 Resp 18 10/28/22 14:00 BP 113/71 10/28/22 14:00 Pulse Ox 100 10/28/22 14:00 O2 Del Method 10/26/22 05:56 Data NPU 10/25/22 04:59 10/25/22 04:18 A&P Assessment and plan (1) Drug-induced psychotic disorder: (2) Methamphetamine abuse: (3) Acute psychosis: (4) Alcohol intoxication: Plan This is a 27-year-old female who has been seen in the past with concern for permanent psychosis likely due to chronic methamphetamine abuse, presenting with law enforcement with positive BAL and positive UDS for amphetamines with altered mental status with limited arousability. 1 ? Increase abilify to 20mg daily. 2.? Continue every 15 minute checks for safety. 3.? Encourage individual, group and milieu therapies. 4.? Encourage sober living treatment after discharge at the highest level of care to which she is willing to commit. 5.? Get collateral information on her guardianship and her stay at [facility] Involuntary Hold Information 96 Hour Hold: 96 Hour Involuntary Admission: Yes 96 Hour Hold Ending Date: 04/18/22 96 Hour Hold Ending Time: 17:00 Attestations NPU Medical Necessity Statement*: Inpatient hospitalization is medically necessary and the clinically appropriate intervention at this time. We will initiate medications and make changes as indicated. Likely length of stay 5-7 days Coding Level of Care Code Established Pt Acute [place] for Patriciag Fwd Patient Type Established History Problem Focused Exam Problem Focused Medical Decision Making Straight Forward Diagnoses Drug-induced psychotic disorder F19.959 Methamphetamine abuse F15.10 Acute psychosis F23 Alcohol intoxication F10.929
[2022-10-28 19:43] VITALS: RESP 16
[2022-10-29 06:00] VITALS: RESP 16
[2022-10-29] MEDS: ARIPiprazole 30 mg Tablet 15 MG PO (08:04)
[2022-10-29] MEDS: thiamine 100 mg Tablet PO (08:04)
[2022-10-29] MEDS: multivitamin therapeutic Tablet 1 TAB PO (08:04)
[2022-10-29] MEDS: folic acid 1 mg Tablet PO (08:04)
[2022-10-29] MEDS: nicotine 4 mg lozenge MUCOUS MEM ×2 (08:05→11:20)
[2022-10-29 14:00] VITALS: RESP 18
--- NOTE | 2022-10-29 14:59 | P.NPUPN_ITS ---
Subjective NPU Subjective: The patient is a 27-year-old white female admitted with drug- induced psychotic disorder who had previously been under guardianship and had a placement where she had been taking her medications regularly. Patient apparently is no longer under any guardianship but has been compliant with tolerating her medications. She continues to appear confused on the milieu and has been isolating herself here with limited socialization. She had minimized any drug or alcohol use despite evidence of her having used recently. She had stated that she had friends that were willing to have her come home to live with upon discharge and stated that she was committed to considering outpatient treatment. Mental Status Exam MSE Comments: This is a well-nourished, well-developed white female in hospital scrubs with limited grooming and poor eye contact.?? Poor dentition no abnormal movements except for psychomotor agitation. Mostly cooperative with exam and in no acute distress. Speech was normal rate and volume.? Mood described as mad. affect was mood congruent and vacant. Thought process was disorganized. ? ? Thought content: patient denies suicidal or homicidal ideation, there were no delusions reported, She denied any auditory or visual hallucinations. Attention and concentration appeared limited and memory appeared limited but none were formally tested.? ? She?s alert and oriented to person and place but not date or time.? ? Insight, judgment and impulse control appear impaired. There was evidence of apathy and amotivation. Vitals/I&O/Wt Last Vital Signs Temp 97.6 F 10/27/22 15:00 Pulse 96 10/28/22 14:00 Resp 16 10/29/22 06:00 BP 113/71 10/28/22 14:00 Pulse Ox 100 10/28/22 14:00 O2 Del Method 10/26/22 05:56 Weight last 48 hrs Weight 59.33 kg Data NPU 10/25/22 04:59 10/25/22 04:18 A&P Assessment and plan (1) Drug-induced psychotic disorder: (2) Methamphetamine abuse: (3) Acute psychosis: (4) Alcohol intoxication: Plan This is a 27-year-old female who has been seen in the past with concern for permanent psychosis likely due to chronic methamphetamine abuse, presenting with law enforcement with positive BAL and positive UDS for amphetamines with altered mental status with limited arousability. 1 ? Continue abilify at 20mg daily. 2.? Continue every 15 minute checks for safety. 3.? Encourage individual, group and milieu therapies. 4.? Encourage sober living treatment after discharge at the highest level of care to which she is willing to commit. 5.? Get collateral information on her guardianship and her stay at [facility]. Involuntary Hold Information 96 Hour Hold: 96 Hour Involuntary Admission: Yes 96 Hour Hold Ending Date: 04/18/22 96 Hour Hold Ending Time: 17:00 Attestations NPU Medical Necessity Statement*: Inpatient hospitalization is medically necessary and the clinically appropriate intervention at this time. We will initiate medications and make changes as indicated. Likely length of stay 5-7 days Coding Level of Care Code Established Pt Acute Bulk Fluids Handler for Chg Fwd Patient Type Established History Problem Focused Exam Problem Focused Medical Decision Making Straight Forward Diagnoses Drug-induced psychotic disorder F19.959 Methamphetamine abuse F15.10 Acute psychosis F23 Alcohol intoxication F10.929
[2022-10-29] MEDS: OLANZapine 5 mg ODT PO (16:41)
--- NOTE | 2022-10-29 16:42 | PC.NURSE ---
PRN Marketing Representative Zyprexa 5 mg ODT administered to patient by this RN due to patient presenting with anxiety and requesting meds. Patient shaking slightly and handing RN her packet to fill out for a rehabilitation center because she can't handle this right now but I'll try tomorrow.
[2022-10-29 22:00] VITALS: RESP 18
[2022-10-30 06:00] VITALS: RESP 16
[2022-10-30] MEDS: ARIPiprazole 30 mg Tablet 15 MG PO (08:40)
[2022-10-30] MEDS: nicotine 4 mg lozenge MUCOUS MEM ×3 (08:40→16:39)
[2022-10-30] MEDS: folic acid 1 mg Tablet PO (08:40)
[2022-10-30] MEDS: thiamine 100 mg Tablet PO (08:40)
[2022-10-30] MEDS: multivitamin therapeutic Tablet 1 TAB PO (08:40)
[2022-10-30 14:00] VITALS: RESP 18
[2022-10-30] MEDS: ibuprofen 600 mg Tablet PO (16:18)
[2022-10-30] MEDS: OLANZapine 5 mg ODT PO ×2 (16:18→20:49)
--- NOTE | 2022-10-30 17:17 | P.NPUPN_ITS ---
Subjective NPU Subjective: The patient is a 27-year-old white female admitted with drug- induced psychotic disorder who had previously been under guardianship and had a placement where she had been taking her medications regularly. The patient had reported that she was ready to go home and would live with her boyfriend. It was determined it was revealed by the boyfriend that the patient had been tapered off of her medication under the supervision of her boyfriend who is not a physician. The patient had reported that she had been without her Abilify and she states that she had been able to obtain a job despite being off of it for several weeks. The patient was unable to discuss the circumstances for which she had been admitted at this time but stated that she did not want to consider any medications when she were to leave the hospital. She reported no side effects from her Abilify at this time. She had minimized the significance of her alcohol abuse and the use of amphetamine which had led to her current hospitalization this time. She had reported that the police had nearly picked her up after she was unconscious outside of her home and had forced her to come to the hospital. Mental Status Exam MSE Comments: This is a well-nourished, well-developed white female in hospital scrubs with limited grooming and poor eye contact.?? Poor dentition with no abnormal movements except for psychomotor retardation today. She was cooperative with exam and in mild distress. Speech was normal rate and volume.? Mood described as okay. affect was mood congruent and subdued. Thought process was disorganized and nonlinear. ? ? Thought content: patient denies suicidal or homicidal ideation. There were no delusions reported, She denied any auditory or visual hallucinations. Attention and concentration appeared limited and memory appeared limited but none were formally tested.? ? She?s alert and oriented to person and place but not date or time.? ? Insight, judgment and impulse control appear feeble. There was evidence of apathy and amotivation. Vitals/I&O/Wt Last Vital Signs Temp 97.6 F 10/27/22 15:00 Pulse 96 10/28/22 14:00 Resp 18 10/30/22 14:00 BP 113/71 10/28/22 14:00 Pulse Ox 100 10/28/22 14:00 O2 Del Method 10/26/22 05:56 Weight last 48 hrs Weight 59.33 kg Data NPU 10/25/22 04:59 10/25/22 04:18 A&P Assessment and plan (1) Drug-induced psychotic disorder: (2) Methamphetamine abuse: (3) Acute psychosis: (4) Alcohol intoxication: Plan This is a 27-year-old female who has been seen in the past with concern for permanent psychosis likely due to chronic methamphetamine abuse, presenting with law enforcement with positive BAL and positive UDS for amphetamines with altered mental status with limited arousability. 1 ? Continue abilify at 20mg daily. 2.? Continue every 15 minute checks for safety. 3.? Encourage individual, group and milieu therapies. 4.? Encourage sober living treatment after discharge at the highest level of care to which she is willing to commit. 5.? Get collateral information on her guardianship and her stay at [facility]. Involuntary Hold Information 96 Hour Hold: 96 Hour Involuntary Admission: Yes 96 Hour Hold Ending Date: 04/18/22 96 Hour Hold Ending Time: 17:00 Attestations NPU Medical Necessity Statement*: Inpatient hospitalization is medically necessary and the clinically appropriate intervention at this time. We will initiate medications and make changes as indicated. Likely length of stay 5-7 days Coding Level of Care Code Established Pt Acute Manager Plant for Patriciag [place] Patient Type Established History Problem Focused Exam Problem Focused Medical Decision Making Straight Forward Diagnoses Drug-induced psychotic disorder F19.959 Methamphetamine abuse F15.10 Acute psychosis F23 Alcohol intoxication F10.929
[2022-10-30 22:00] VITALS: RESP 18
[2022-10-31 06:00] VITALS: RESP 16
[2022-10-31] MEDS: ARIPiprazole 30 mg Tablet 15 MG PO (09:27)
[2022-10-31] MEDS: folic acid 1 mg Tablet PO (09:27)
[2022-10-31] MEDS: thiamine 100 mg Tablet PO (09:27)
[2022-10-31] MEDS: multivitamin therapeutic Tablet 1 TAB PO (09:27)
[2022-10-31 14:00] VITALS: BP 120/79; PULSE 98; RESP 16; TEMP 36.6; O2SAT 97
[2022-10-31] MEDS: hyDROXYzine 25 mg Capsule 50 MG PO (16:50)
--- NOTE | 2022-10-31 17:58 | P.NPUPN_ITS ---
Subjective NPU Subjective: The patient is a 27-year-old white female admitted with drug- induced psychotic disorder who had previously been under guardianship and had a placement where she had been taking her medications regularly. The patient continue to reiterate her need to be sent home as she states that she was able to keep a job and interview for a job even when she was tapered off her medication by her boyfriend. She reports that the medications had not been the reason that she had been better but offered up no rational explanation for why she had been hospitalized at a time where she had discontinued her medication for more than a month. She continued appear confused and hesitant on the unit often asking questions and then repeating herself and asking the same question again to another staff member. She had again minimized the use of alcohol stimulants and stated that the police had had an agenda against her. Mental Status Exam MSE Comments: This is a well-nourished, well-developed white female in ho spital scrubs with limited grooming and poor eye contact.?? Poor dentition with no abnormal movements except for psychomotor retardation today. She was cooperative with exam and in mild distress. Speech was normal rate and volume.? Mood described as great affect was mood incongruent and subdued. Thought process was disorganized and nonlinear. ? ? Thought content: patient denies suicidal or homicidal ideation. There were no delusions reported, She denied any auditory or visual hallucinations. Attention and concentration appeared limited and memory appeared limited but none were formally tested.? ? She?s alert and oriented to person and place but not date or time.? ? Insight, judgm ent and impulse control appear impaired. There was evidence of apathy and amotivation. Vitals/I&O/Wt Last Vital Signs Temp 97.9 F 10/31/22 14:00 Pulse 98 10/31/22 14:00 Resp 16 10/31/22 14:00 BP 120/79 10/31/22 14:00 Pulse Ox 97 10/31/22 14:00 O2 Del Method 10/26/22 05:56 Data NPU 10/25/22 04:59 10/25/22 04:18 A&P Assessment and plan (1) Drug-induced psychotic disorder: (2) Methamphetamine abuse: (3) Acute psychosis: (4) Alcohol intoxication: Plan This is a 27-year-old female who has been seen in the past with concern for permanent psychosis likely due to chronic methamphetamine abuse, presenting with law enforcement with positive BAL and positive UDS for amphetamines with altered mental status with limited arousability. 1 ? Continue abilify at 20mg daily, restarted Zyprexa 5mg at night. 2.? Continue every 15 minute checks for safety. 3.? Encourage individual, group and milieu therapies. 4.? Encourage sober living treatment after discharge at the highest level of care to which she is willing to commit. 5.? Get collateral information on her guardianship and her stay at [facility]. Involuntary Hold Information 96 Hour Hold: 96 Hour Involuntary Admission: Yes 96 Hour Hold Ending Date: 04/18/22 96 Hour Hold Ending Time: 17:00 Attestations NPU Medical Necessity Statement*: Inpatient hospitalization is medically necessary and the clinically appropriate intervention at this time. We will initiate medications and make changes as indicated. Likely length of stay 5-7 days Coding Level of Care Code Established Pt Acute Negative Checker for Patriciag Fwd Patient Type Established History Problem Focused Exam Problem Focused Medical Decision Making Straight Forward Diagnoses Drug-induced psychotic disorder F19.959 Methamphetamine abuse F15.10 Acute psychosis F23 Alcohol intoxication F10.929
[2022-10-31] MEDS: OLANZapine 5 mg ODT PO (20:20)
[2022-10-31 22:00] VITALS: RESP 16
[2022-10-31] MEDS: trazodone 50 mg Tablet PO (22:18)
[2022-11-01 06:00] VITALS: RESP 14
[2022-11-01] MEDS: ARIPiprazole 10 mg Tablet 20 MG PO (08:29)
[2022-11-01] MEDS: nicotine 4 mg lozenge MUCOUS MEM (08:30)
[2022-11-01] MEDS: thiamine 100 mg Tablet PO (08:30)
[2022-11-01] MEDS: folic acid 1 mg Tablet PO (08:30)
[2022-11-01] MEDS: multivitamin therapeutic Tablet 1 TAB PO (08:30)
[2022-11-01] MEDS: acetaminophen 325 mg Tablet 650 MG PO (11:02)
[2022-11-01] MEDS: hyDROXYzine 25 mg Capsule 50 MG PO (13:17)
[2022-11-01 14:00] VITALS: BP 121/74; PULSE 91; RESP 18; TEMP 36.6; O2SAT 97
--- NOTE | 2022-11-01 15:06 | P.NPUPN_ITS ---
Subjective NPU Subjective: The patient is a 27-year-old white female admitted with drug- induced psychotic disorder who had previously been under guardianship and had a placement where she had been taking her medications regularly. The patient had spent a significant amount of time on the unit reading stories. She continued to report that she wished to leave here and live with her boyfriend. She reported no feelings of hopelessness or worthlessness. She reported no thoughts of hurting herself or others. She stated that she did not think that alcohol had played a role in her coming back to the hospital but stated that she could simply return back to her home and take her medications. She had minimized any problems with methamphetamine use today. Mental Status Exam MSE Comments: This is a well-nourished, well-developed white female in hospital scrubs with limited grooming and poor eye contact. She appears older than her stated age.?? Poor dentition with no abnormal movements except for psychomotor retardation today. She was cooperative with exam and in mild distress. Speech was normal rate and volume.? Mood described as good affect was mood incongruent and subdued. Thought process was linear, but illogical She had limited elaboration and superficial. ? ? Thought content: patient denies suicidal or homicidal ideation. There were no delusions reported, She denied any auditory or visual hallucinations. Attention and concentration appeared limited and memory appeared limited but none were formally tested.? ? She?s alert and oriented to person and place but not date or time.? ? Insight, judgment and impulse control appear impaired. Vitals/I&O/Wt Last Vital Signs Temp 97.9 F 10/31/22 14:00 Pulse 98 10/31/22 14:00 Resp 14 11/01/22 06:00 BP 120/79 10/31/22 14:00 Pulse Ox 97 10/31/22 14:00 O2 Del Method 10/26/22 05:56 Data NPU 10/25/22 04:59 10/25/22 04:18 A&P Assessment and plan (1) Drug-induced psychotic disorder: (2) Methamphetamine abuse: (3) Acute psychosis: (4) Alcohol intoxication: Plan This is a 27-year-old female who has been seen in the past with concern for permanent psychosis likely due to chronic methamphetamine abuse, presenting with law enforcement with positive BAL and positive UDS for amphetamines with altered mental status with limited arousability. 1 ? Continue abilify at 20mg daily, continue Zyprexa 5mg at night. 2.? Continue every 15 minute checks for safety. 3.? Encourage individual, group and milieu therapies. 4.? Encourage sober living treatment after discharge at the highest level of care to which she is willing to commit. 5.? Get collateral information on her guardianship and her stay at [facility]. Involuntary Hold Information 96 Hour Hold: 96 Hour Involuntary Admission: Yes 96 Hour Hold Ending Date: 04/18/22 96 Hour Hold Ending Time: 17:00 Attestations NPU Medical Necessity Statement*: Inpatient hospitalization is medically necessary and the clinically appropriate intervention at this time. We will initiate medications and make changes as indicated. Likely length of stay 5-7 days Coding Level of Care Code Established Pt Acute Preformer Impregnated Fabrics for Chg Fwd Patient Type Established History Problem Focused Exam Problem Focused Medical Decision Making Straight Forward Diagnoses Drug-induced psychotic disorder F19.959 Methamphetamine abuse F15.10 Acute psychosis F23 Alcohol intoxication F10.929
[2022-11-01 20:03] VITALS: BP 126/81; PULSE 88; RESP 18; TEMP 36.8; O2SAT 100
[2022-11-01] MEDS: OLANZapine 5 mg ODT PO (20:37)
[2022-11-01] MEDS: trazodone 50 mg Tablet PO (20:49)
--- NOTE | 2022-11-01 21:17 | PC.NURSE ---
PRN MED PT GIVEN 50MG TRAZADONE FOR INSOMNIA, WILL CONTINUE TO MONITOR.
[2022-11-02] MEDS: multivitamin therapeutic Tablet 1 TAB PO (08:45)
[2022-11-02] MEDS: thiamine 100 mg Tablet PO (08:45)
[2022-11-02] MEDS: folic acid 1 mg Tablet PO (08:45)
[2022-11-02] MEDS: ARIPiprazole 10 mg Tablet 20 MG PO (08:45)
[2022-11-02] MEDS: ibuprofen 600 mg Tablet PO (09:59)
[2022-11-02 14:00] VITALS: BP 122/69; PULSE 90; RESP 18; TEMP 36.6; O2SAT 96
[2022-11-02] MEDS: nicotine 4 mg lozenge MUCOUS MEM (14:46)
--- NOTE | 2022-11-02 16:37 | W.PM.NPUPNS ---
Subjective NPU Subjective: The patient is a 27-year-old white female admitted with drug-induced psychotic disorder who had previously been under guardianship and had a placement where she had been taking her medications regularly. The patient continued to perseverate on her desire to go home. She minimized any drug use that may have contributed to her readmission to the hospital. She stated that she continued to feel that she did not require a guardian but could simply return to her boyfriend's place despite confirming that the boyfriend had largely been supportive of her antipsychotic medications being tapered and eventually discontinued. Mental Status Exam MSE Comments: This is a well-nourished, well-developed white female in hospital scrubs with limited grooming and poor eye contact. She appears older than her stated age.?? Poor dentition with no abnormal movements except for psychomotor retardation today. She was cooperative with exam and in mild distress. Speech was diminshed in rate today, normal volume, ? Mood described as good affect was mood incongruent and subdued. Thought process was linear, but illogical. She had limited elaboration and superficial. ? ? Thought content: patient denies suicidal or homicidal ideation. There were no delusions reported, She denied any auditory or visual hallucinations. Attention and concentration appeared limited and memory appeared limited but none were formally tested.? ? She?s alert and oriented to person and place and time today. ? Insight, judgment and impulse control remained impaired. Vitals/I&O/Wt Last Vital Signs Temp 98 F 11/02/22 14:00 Pulse 90 11/02/22 14:00 Resp 18 11/02/22 14:00 BP 122/69 11/02/22 14:00 Pulse Ox 96 11/02/22 14:00 O2 Del Method 10/26/22 05:56 Data NPU 10/25/22 04:59 10/25/22 04:18 A&P Assessment and plan (1) Drug-induced psychotic disorder: (2) Methamphetamine abuse: (3) Acute psychosis: (4) Alcohol intoxication: Plan This is a 27-year-old female who has been seen in the past with concern for permanent psychosis likely due to chronic methamphetamine abuse, presenting with law enforcement with positive BAL and positive UDS for amphetamines with altered mental status with limited arousability. 1 ? Continue abilify at 20mg daily, continue Zyprexa 5mg at night. 2.? Continue every 15 minute checks for safety. 3.? Encourage individual, group and milieu therapies. 4.? Encourage sober living treatment after discharge at the highest level of care to which she is willing to commit. 5.? Get collateral information on her guardianship and her stay at [facility]. Involuntary Hold Information 96 Hour Hold: 96 Hour Involuntary Admission: Yes 96 Hour Hold Ending Date: 04/18/22 96 Hour Hold Ending Time: 17:00 Attestations NPU Medical Necessity Statement*: Inpatient hospitalization is medically necessary and the clinically appropriate intervention at this time. We will initiate medications and make changes as indicated. Likely length of stay 5-7 days Coding Level of Care Code Established Pt Acute Varnish Maker Helper for Patriciag Fwd Patient Type Established History Problem Focused Exam Problem Focused Medical Decision Making Straight Forward Diagnoses Drug-induced psychotic disorder F19.959 Methamphetamine abuse F15.10 Acute psychosis F23 Alcohol intoxication F10.929
[2022-11-02] MEDS: blistex lip oint 7 gm Tube 1 APPLIC TOPICAL (18:07)
[2022-11-02] MEDS: OLANZapine 5 mg ODT PO (20:28)
[2022-11-02] MEDS: trazodone 50 mg Tablet PO (20:29)
[2022-11-02 20:43] VITALS: BP 109/74; PULSE 79; RESP 16; TEMP 36.8; O2SAT 98
[2022-11-03] MEDS: folic acid 1 mg Tablet PO (08:15)
[2022-11-03] MEDS: thiamine 100 mg Tablet PO (08:15)
[2022-11-03] MEDS: multivitamin therapeutic Tablet 1 TAB PO (08:15)
[2022-11-03] MEDS: ARIPiprazole 10 mg Tablet 20 MG PO (08:15)
[2022-11-03 14:00] VITALS: BP 96/61; PULSE 98; RESP 17; TEMP 36.9; O2SAT 97
[2022-11-03] MEDS: nicotine 4 mg lozenge MUCOUS MEM ×2 (14:19→17:11)
[2022-11-03] MEDS: hyDROXYzine 25 mg Capsule 50 MG PO (14:19)
[2022-11-03] MEDS: ibuprofen 600 mg Tablet PO (17:11)
--- NOTE | 2022-11-03 17:39 | W.PM.NPUPNS ---
Subjective NPU Subjective: Patient presented today reporting that she is ready to leave tomorrow and was very upset at the mere mention of the possibility of any kind extension. We discussed her disorganization/thought disorder and its connection to her methamphetamine use which she was very resistant to discuss. Her significant other came to the hospital in a very aggressive manner leading to the security of the hospital come down. The theme of his concerns echoed hers and that somehow she was not responsible for being back in the hospital and that the methamphetamine leading to thought disorder is not a gigantic issue. He assured that somehow this time he would prevent any drug use, but he cannot explain why after her being in the hospital for 3 months prior he did not see the need to prevent it before this hospitalization. Mental Status Exam MSE Comments: This is a well-nourished, well-developed white female in hospital scrubs with limited grooming and poor eye contact. She appears older than her stated age.?? Poor dentition with no abnormal movements except for psychomotor retardation. She was cooperative with exam in mild distress. Speech was diminshed in rate today, normal volume, ? Mood described as good affect was subdued. Thought process was often linear linear, but illogical, with the classic expressive aphasia type delivery that has been seen with her during these post methamphetamine episodes. She had limited elaboration and superficial. ? ? Thought content: patient denies suicidal or homicidal ideation. There were no delusions reported, She denied any auditory or visual hallucinations. Attention and concentration appeared limited and memory appeared limited but none were formally tested.? ? She?s alert and oriented to person and place and time today. ? Insight, judgment and impulse control remained impaired. Vitals/I&O/Wt Last Vital Signs Temp 98.5 F 11/03/22 14:00 Pulse 98 11/03/22 14:00 Resp 17 11/03/22 14:00 BP 96/61 11/03/22 14:00 Pulse Ox 97 11/03/22 14:00 O2 Del Method 10/26/22 05:56 Weight last 48 hrs Weight 61.87 kg Data NPU 10/25/22 04:59 10/25/22 04:18 A&P Assessment and plan (1) Drug-induced psychotic disorder: (2) Methamphetamine abuse: (3) Acute psychosis: (4) Alcohol intoxication: Plan This is a 27-year-old female who has been seen in the past with concern for permanent psychosis likely due to chronic methamphetamine abuse, presenting with law enforcement with positive BAL and positive UDS for amphetamines with altered mental status with limited arousability. 1 ? Continue abilify at 20mg daily, continue Zyprexa 5mg at night. 2.? Continue every 15 minute checks for safety. 3.? Encourage individual, group and milieu therapies. 4.? Encourage sober living treatment after discharge at the highest level of care to which she is willing to commit. 5.? Get collateral information on her guardianship and her stay at [facility]. 6. 21-day hold paperwork was submitted. Involuntary Hold Information 96 Hour Hold: 96 Hour Involuntary Admission: Yes 96 Hour Hold Ending Date: 04/18/22 96 Hour Hold Ending Time: 17:00 Attestations NPU Medical Necessity Statement*: Inpatient hospitalization is medically necessary and the clinically appropriate intervention at this time. We will initiate medications and make changes as indicated. Likely length of stay 5-7 days Coding Level of Care Code Acute Hospital Liaison for Kyleigh Valadez Diagnoses Drug-induced psychotic disorder F19.959 Methamphetamine abuse F15.10 Acute psychosis F23 Alcohol intoxication F10.929
[2022-11-03] MEDS: benzocaine 20% 7 gm 1 APPLIC MUCOUS MEM (17:49)
[2022-11-03] MEDS: OLANZapine 5 mg ODT PO (20:19)
[2022-11-03 22:00] VITALS: RESP 16
[2022-11-04 06:00] VITALS: RESP 16
[2022-11-04] MEDS: multivitamin therapeutic Tablet 1 TAB PO (09:22)
[2022-11-04] MEDS: folic acid 1 mg Tablet PO (09:22)
[2022-11-04] MEDS: thiamine 100 mg Tablet PO (09:22)
[2022-11-04] MEDS: ARIPiprazole 10 mg Tablet 20 MG PO (09:22)
[2022-11-04] MEDS: nicotine 4 mg lozenge MUCOUS MEM (11:35)
[2022-11-04] MEDS: OLANZapine 5 mg ODT PO ×2 (13:45→19:42)
[2022-11-04 14:00] VITALS: BP 124/75; PULSE 113; RESP 20; TEMP 36.8; O2SAT 97
--- NOTE | 2022-11-04 16:32 | P.NPUPN_ITS ---
Subjective NPU Subjective: Patient presented today with less animosity and irritability noted. We will have a more rational conversation about her situation. And she still had moments of limited expressively aphastic talk she seemed to be a bit more rounded and less disorganized. We elected conversation about meeting early tomorrow morning and using that as a determination of what to do about her hearing tomorrow for 21 days. She seemed agreeable to consenting to the 21-day extension and we discussed the likelihood of her needing only a short time if tomorrow suggest legitimate improvement. Mental Status Exam MSE Comments: This is a well-nourished, well-developed white female in hospital scrubs with improving grooming and eye contact. She appears older than her stated age.?? Poor dentition with no abnormal movements except for mild psychomotor retardation. She was cooperative with exam in no acute distress. Speech was more normal rate and volume still limited prosody. Mood described as good affect was less subdued. Thought process was often linear, less illogical, and organized with less expressive aphasitic delivery that has been seen with her during these post methamphetamine episodes. Thought content: patient denies suicidal or homicidal ideation. There were no delusions reported, She denied any auditory or visual hallucinations. Attention and concentration appeared improved and memory appeared limited but improving but none were formally tested.? ? She?s alert and oriented to person and place and time today. ? Insight, judgment and impulse control seem to be improving. Vitals/I&O/Wt Last Vital Signs Temp 98.2 F 11/04/22 22:00 Pulse 101 H 11/04/22 22:00 Resp 18 11/04/22 22:00 BP 105/66 11/04/22 22:00 Pulse Ox 95 11/04/22 22:00 O2 Del Method 11/04/22 22:00 Data NPU 10/25/22 04:59 10/25/22 04:18 A&P Assessment and plan (1) Drug-induced psychotic disorder: (2) Methamphetamine abuse: (3) Acute psychosis: (4) Alcohol intoxication: Plan This is a 27-year-old female who has been seen in the past with concern for permanent psychosis likely due to chronic methamphetamine abuse, presenting with law enforcement with positive BAL and positive UDS for amphetamines with altered mental status with limited arousability. 1 ? Continue abilify at 20mg daily, continue Zyprexa 5mg at night. 2.? Continue every 15 minute checks for safety. 3.? Encourage individual, group and milieu therapies. 4.? Encourage sober living treatment after discharge at the highest level of care to which she is willing to commit. 5.? Get collateral information on her guardianship and her stay at [facility]. 6. 21-day hold paperwork was submitted. We will meet in the morning and see if this progress is sustained. Involuntary Hold Information 96 Hour Hold: 96 Hour Involuntary Admission: Yes 96 Hour Hold Ending Date: 04/18/22 96 Hour Hold Ending Time: 17:00 Attestations NPU Medical Necessity Statement*: Inpatient hospitalization is medically necessary and the clinically appropriate intervention at this time. We will initiate medications and make changes as indicated. Likely length of stay 4-6 days. Coding Level of Care Code Acute Wood Heel Fitter Machine for Kyleigh Valadez Diagnoses Drug-induced psychotic disorder F19.959 Methamphetamine abuse F15.10 Acute psychosis F23 Alcohol intoxication F10.929
[2022-11-04] MEDS: ibuprofen 600 mg Tablet PO (16:47)
[2022-11-04] MEDS: trazodone 50 mg Tablet PO (19:43)
[2022-11-04 22:00] VITALS: BP 105/66; PULSE 101; RESP 18; TEMP 36.8; O2SAT 95
[2022-11-05 06:00] VITALS: RESP 18
[2022-11-05] MEDS: folic acid 1 mg Tablet PO (08:43)
[2022-11-05] MEDS: thiamine 100 mg Tablet PO (08:43)
[2022-11-05] MEDS: ARIPiprazole 10 mg Tablet 20 MG PO (08:43)
[2022-11-05] MEDS: multivitamin therapeutic Tablet 1 TAB PO (08:43)
[2022-11-05] MEDS: nicotine 21 mg Patch 1 PATCH TRANSDERMA (10:31)
[2022-11-05 14:00] VITALS: BP 124/80; PULSE 116; RESP 18; TEMP 36.8; O2SAT 99
--- NOTE | 2022-11-05 16:17 | P.NPUPN_ITS ---
Subjective NPU Subjective: Patient presented today reporting that she is feeling better. She was reading a book and trying to gain some positive intellectual stimulation while here on the unit. We discussed the fact that her expressive aphasic behavior continues to show improvement. Which speaks to 2 things. 1 that her discontinue the medication reportedly a month ago was a bad idea and/or 2 the alcohol and more specifically methamphetamine use is not good for her brain. We discussed the likelihood for discharge in less than a week and she agreed to bypass the hearing or contesting the 21-day hold. Mental Status Exam MSE Comments: This is a well-nourished, well-developed white female in hospital scrubs with improving grooming and eye contact. She appears older than her stated age.?? Poor dentition with no abnormal movements except for mild psychomotor retardation. She was cooperative with exam in no acute distress. Speech was more normal rate and volume still limited prosody. Mood described as good affect was less subdued. Thought process was often linear, less illogical, and organized with less expressive aphasitic delivery that has been seen with her during these post methamphetamine episodes. Thought content: patient denies suicidal or homicidal ideation. There were no delusions reporte d, She denied any auditory or visual hallucinations. Attention and concentration appeared improved and memory appeared limited but improving but none were formally tested.? ? She?s alert and oriented to person and place and time today. ? Insight, judgment and impulse control seem to be improving. Vitals/I&O/Wt Last Vital Signs Temp 98.3 F 11/05/22 14:00 Pulse 116 H 11/05/22 14:00 Resp 18 11/05/22 14:00 BP 124/80 11/05/22 14:00 Pulse Ox 99 11/05/22 14:00 O2 Del Method 11/05/22 06:00 Data NPU 10/25/22 04:59 10/25/22 04:18 A&P Assessment and plan (1) Drug-induced psychotic disorder: (2) Methamphetamine abuse: (3) Acute psychosis: (4) Alcohol intoxication: Plan This is a 27-year-old female who has been seen in the past with concern for permanent psychosis likely due to chronic methamphetamine abuse, presenting with law enforcement with positive BAL and positive UDS for amphetamines with altered mental status with limited arousability. 1 ? Continue abilify at 20mg daily, continue Zyprexa 5mg at night. Consider the injection. 2.? Continue every 15 minute checks for safety. 3.? Encourage individual, group and milieu therapies. 4.? Encourage sober living treatment after discharge at the highest level of care to which she is willing to commit. 5.? Get collateral information on her guardianship and her stay at [facility]. 6. 21-day hold was approved. Involuntary Hold Information 96 Hour Hold: 96 Hour Involuntary Admission: Yes 96 Hour Hold Ending Date: 04/18/22 96 Hour Hold Ending Time: 17:00 Attestations NPU Medical Necessity Statement*: Inpatient hospitalization is medically necessary and the clinically appropriate intervention at this time. We will initiate medications and make changes as indicated. Likely length of stay 3-5 days. Coding Level of Care Code Acute Orchestra Musician for Kyleigh Valadez Diagnoses Drug-induced psychotic disorder F19.959 Methamphetamine abuse F15.10 Acute psychosis F23 Alcohol intoxication F10.929
[2022-11-05] MEDS: trazodone 50 mg Tablet PO (20:21)
--- NOTE | 2022-11-05 20:22 | PC.NURSE ---
21 mg nicotine patch removed.
[2022-11-05 21:56] VITALS: BP 132/84; PULSE 111; RESP 18; TEMP 36.8; O2SAT 97
[2022-11-06] MEDS: ARIPiprazole 10 mg Tablet 20 MG PO (08:10)
[2022-11-06] MEDS: folic acid 1 mg Tablet PO (08:10)
[2022-11-06] MEDS: multivitamin therapeutic Tablet 1 TAB PO (08:10)
[2022-11-06] MEDS: thiamine 100 mg Tablet PO (08:10)
[2022-11-06] MEDS: diphenhydrAMINE 50 mg Capsule PO ×2 (08:56→20:09)
[2022-11-06 14:00] VITALS: BP 96/60; PULSE 98; RESP 20; TEMP 37.3; O2SAT 98
[2022-11-06] MEDS: nicotine 21 mg Patch 1 PATCH TRANSDERMA (14:27)
[2022-11-06] MEDS: haloperidol 5 mg Tablet PO (15:55)
[2022-11-06] MEDS: ibuprofen 600 mg Tablet PO (16:32)
--- NOTE | 2022-11-06 19:38 | P.NPUPN_ITS ---
Subjective NPU Subjective: Patient presented today reporting that she continues to feel improved on the resumption of her Abilify. We agreed we would have a more robust discussion about a long-acting injectable tomorrow. We continued to discuss our hopes of considering discharge at the beginning of next week. Her expressive aphastic conversing continues to show improvement. We continued to discuss the importance of sobriety and any plan for her to be safe from cognitive decline in the short-term. Mental Status Exam MSE Comments: This is a well-nourished, well-developed white female in hospital scrubs with improving grooming and eye contact. She appears older than her stated age.?? Poor dentition with no abnormal movements except for mild psychomotor retardation. She was cooperative with exam in no acute distress. Speech was more normal rate and volume still limited prosody. Mood described as good affect was less subdued. Thought process was often linear, less illogical, and organized with less expressive aphasitic delivery that has been seen with her during these post methamphetamine episodes. Thought content: patient denies suicidal or homicidal ideation. There were no delusions reported, She denied any auditory or visual hallucinations. Attention and concentration appeared improved and memory appeared limited but improving but none were formally tested.? ? She?s alert and oriented to person and place and time today. ? Insight, judgment and impulse control seem to be improving. Vitals/I&O/Wt Last Vital Signs Temp 99.1 F 11/06/22 14:00 Pulse 98 11/06/22 14:00 Resp 20 H 11/06/22 14:00 BP 96/60 11/06/22 14:00 Pulse Ox 98 11/06/22 14:00 O2 Del Method 11/06/22 14:00 Data NPU 10/25/22 04:59 10/25/22 04:18 A&P Assessment and plan (1) Drug-induced psychotic disorder: (2) Methamphetamine abuse: (3) Acute psychosis: (4) Alcohol intoxication: Plan This is a 27-year-old female who has been seen in the past with concern for permanent psychosis likely due to chronic methamphetamine abuse, presenting with law enforcement with positive BAL and positive UDS for amphetamines with altered mental status with limited arousability. 1 ? Continue abilify at 20mg daily, continue Zyprexa 5mg at night. Consider the Abilify Maintena injection. 2.? Continue every 15 minute checks for safety. 3.? Encourage individual, group and milieu therapies. 4.? Encourage sober living treatment after discharge at the highest level of care to which she is willing to commit. 5.? Get collateral information on her guardianship and her stay at [facility]. 6. 21-day hold was approved. Involuntary Hold Information 96 Hour Hold: 96 Hour Involuntary Admission: Yes 96 Hour Hold Ending Date: 04/18/22 96 Hour Hold Ending Time: 17:00 Attestations NPU Medical Necessity Statement*: Inpatient hospitalization is medically necessary and the clinically appropriate intervention at this time. We will initiate medications and make changes as indicated. Likely length of stay 3-5 days. Coding Level of Care Code Acute Filemaker Developer for Kyleigh Valadez Diagnoses Drug-induced psychotic disorder F19.959 Methamphetamine abuse F15.10 Acute psychosis F23 Alcohol intoxication F10.929
[2022-11-06] MEDS: OLANZapine 5 mg ODT PO (20:09)
[2022-11-06] MEDS: trazodone 50 mg Tablet PO (20:09)
[2022-11-06 20:20] VITALS: BP 104/69; PULSE 87; RESP 16; TEMP 36.9; O2SAT 98
[2022-11-07] MEDS: folic acid 1 mg Tablet PO (08:23)
[2022-11-07] MEDS: ARIPiprazole 10 mg Tablet 20 MG PO (08:23)
[2022-11-07] MEDS: thiamine 100 mg Tablet PO (08:23)
[2022-11-07] MEDS: multivitamin therapeutic Tablet 1 TAB PO (08:23)
[2022-11-07] MEDS: nicotine 2 mg Gum BUCCAL ×2 (10:19→17:25)
--- NOTE | 2022-11-07 11:03 | P.NPUPN_ITS ---
Subjective NPU Subjective: Patient presents today continuing to make slow improvement from her initial presentation. Still with clear expressive aphasia but less dramatic disability demonstrated as she communicates. We continued to discuss initiating the Abilify Maintena injection and she is considering. Otherwise she is working with the treatment team on possible outpatient treatment modalities. Mental Status Exam MSE Comments: This is a well-nourished, well-developed white female in hospital scrubs with improving grooming and eye contact. She appears older than her stated age.?? Poor dentition with no abnormal movements except for mild psychomotor retardation. She was cooperative with exam in no acute distress. Speech was more normal rate and volume still limited prosody. Mood described as good affect was less subdued. Thought process was often linear, less illogical, and organized with less expressive aphasitic delivery that has been seen with her during these post methamphetamine episodes. Thought content: patient denies suicidal or homicidal ideation. There were no delusions reported, She denied any auditory or visual hallucinations. Attention and concentration appeared improved and memory appeared limited but improving but none were formally tested.? ? She?s alert and oriented to person and place and time today. ? Insight, judgment and impulse control seem to be improving. Vitals/I&O/Wt Last Vital Signs Temp 98.5 F 11/06/22 20:20 Pulse 87 11/06/22 20:20 Resp 16 11/06/22 20:20 BP 104/69 11/06/22 20:20 Pulse Ox 98 11/06/22 20:20 O2 Del Method 11/06/22 14:00 Data NPU 10/25/22 04:59 10/25/22 04:18 A&P Assessment and plan (1) Drug-induced psychotic disorder: (2) Methamphetamine abuse: (3) Acute psychosis: (4) Alcohol intoxication: Plan This is a 27-year-old female who has been seen in the past with concern for permanent psychosis likely due to chronic methamphetamine abuse, presenting with law enforcement with positive BAL and positive UDS for amphetamines with altered mental status with limited arousability. 1 ? Continue abilify at 20mg daily, continue Zyprexa 5mg at night. Consider the Abilify Maintena injection. 2.? Continue every 15 minute checks for safety. 3.? Encourage individual, group and milieu therapies. 4.? Encourage sober living treatment after discharge at the highest level of care to which she is willing to commit. 5.? Get collateral information on her guardianship and her stay at [facility]. 6. 21-day hold was approved. Involuntary Hold Information 96 Hour Hold: 96 Hour Involuntary Admission: Yes 96 Hour Hold Ending Date: 04/18/22 96 Hour Hold Ending Time: 17:00 Attestations NPU Medical Necessity Statement*: Inpatient hospitalization is medically necessary and the clinically appropriate intervention at this time. We will initiate medications and make changes as indicated. Likely length of stay 3-5 days. Coding Level of Care Code Acute Leasing Coordinator for Kyleigh Fwd Diagnoses Drug-induced psychotic disorder F19.959 Methamphetamine abuse F15.10 Acute psychosis F23 Alcohol intoxication F10.929
[2022-11-07 14:00] VITALS: BP 110/63; PULSE 120; RESP 16; TEMP 36.9; O2SAT 98
[2022-11-07] MEDS: benzocaine 20% 7 gm 1 APPLIC MUCOUS MEM (17:52)
[2022-11-07] MEDS: ibuprofen 600 mg Tablet PO (17:57)
[2022-11-07 20:03] VITALS: BP 105/72; PULSE 95; RESP 16; TEMP 37; O2SAT 97
[2022-11-07] MEDS: trazodone 50 mg Tablet PO (21:01)
[2022-11-07] MEDS: OLANZapine 5 mg ODT PO (21:01)
[2022-11-08] MEDS: ARIPiprazole 10 mg Tablet 20 MG PO (09:06)
[2022-11-08] MEDS: folic acid 1 mg Tablet PO (09:06)
[2022-11-08] MEDS: multivitamin therapeutic Tablet 1 TAB PO (09:06)
[2022-11-08] MEDS: thiamine 100 mg Tablet PO (09:07)
[2022-11-08] MEDS: nicotine 4 mg lozenge MUCOUS MEM ×2 (09:10→14:50)
[2022-11-08 14:00] VITALS: BP 111/55; PULSE 99; RESP 18; TEMP 36.5; O2SAT 97
--- NOTE | 2022-11-08 14:15 | P.NPUPN_ITS ---
Subjective NPU Subjective: Patient presented today continuing to be even headed and focused on functioning in a way that would allow for discharge. Stability of the Abilify Maintena injection and she reported she would consider doing it if that would make her a better candidate for discharge. We did discuss the fact that with the every 2 month Abilify Maintena, coming out in March it would create a great opportunity for her to remain on the medication but not have to worry about daily decision making. We also discussed at length the critical part that sobriety plays in the chance of her doing well after discharge next week. Mental Status Exam MSE Comments: This is a well-nourished, well-developed white female in hos pital scrubs with improving grooming and eye contact. She appears older than her stated age.?? Poor dentition with no abnormal movements except for mild psychomotor retardation. She was cooperative with exam in no acute distress. Speech was more normal rate and volume with improving prosody. Mood described as good affect was less subdued. Thought process was often linear, less illogical, and organized with less expressive aphasitic delivery that has been seen with her during these post methamphetamine episodes. Thought content: patient denies suicidal or homicidal ideation. There were no delusions reported, She denied any auditory or visual hallucinations. Attention and concentration appeared improved and memory appeared limited but improving but none were formally tested.? ? She?s alert and oriented to person and place and time today. ? Insight, judgment and impulse control seem to be improving. Vitals/I&O/Wt Last Vital Signs Temp 98.6 F 11/07/22 20:03 Pulse 95 11/07/22 20:03 Resp 16 11/07/22 20:03 BP 105/72 11/07/22 20:03 Pulse Ox 97 11/07/22 20:03 O2 Del Method 11/07/22 14:00 Data NPU 10/25/22 04:59 10/25/22 04:18 A&P Assessment and plan (1) Drug-induced psychotic disorder: (2) Methamphetamine abuse: (3) Acute psychosis: (4) Alcohol intoxication: Plan This is a 27-year-old female who has been seen in the past with concern for permanent psychosis likely due to chronic methamphetamine abuse, presenting with law enforcement with positive BAL and positive UDS for amphe tamines with altered mental status with limited arousability. 1 ? Continue abilify at 20mg daily, continue Zyprexa 5mg at night. We will give Abilify Maintena 400 mg IM q. monthly. 2.? Continue every 15 minute checks for safety. 3.? Encourage individual, group and milieu therapies. 4.? Encourage sober living treatment after discharge at the highest level of care to which she is willing to commit. 5.? Get collateral information on her guardianship and her stay at [facility]. 6. 21-day hold was approved. Involuntary Hold Information 96 Hour Hold: 96 Hour Involuntary Admission: Yes 96 Hour Hold Ending Date: 04/18/22 96 Hour Hold Ending Time: 17:00 Attestations NPU Medical Necessity Statement*: Inpatient hospitalization is medically necessary and the clinically appropriate intervention at this time. We will initiate medications and make changes as indicated. Likely length of stay 2-4 days. Coding Level of Care Code Acute Heel Emery Buffer for Kyleigh Valadez Diagnoses Drug-induced psychotic disorder F19.959 Methamphetamine abuse F15.10 Acute psychosis F23 Alcohol intoxication F10.929
[2022-11-08] MEDS: hyDROXYzine 25 mg Capsule 50 MG PO (16:12)
--- NOTE | 2022-11-08 16:15 | PC.NURSE ---
PRN Patient states she is feeling anxious and requesting a PRN. Vistaril 50mg given PO.
--- NOTE | 2022-11-08 17:15 | PC.NURSE ---
PRN FOLLOW UP Patient states PRN did help. Will continue to monitor.
[2022-11-08] MEDS: OLANZapine 5 mg ODT PO (20:43)
[2022-11-08 22:00] VITALS: RESP 18
[2022-11-09] MEDS: folic acid 1 mg Tablet PO (08:01)
[2022-11-09] MEDS: ARIPiprazole 10 mg Tablet 20 MG PO (08:01)
[2022-11-09] MEDS: thiamine 100 mg Tablet PO (08:01)
[2022-11-09] MEDS: multivitamin therapeutic Tablet 1 TAB PO (08:01)
--- NOTE | 2022-11-09 10:12 | W.PM.NPUPNS ---
Subjective NPU Subjective: Patient presented today reporting that she is staying optimistic. We continued to discuss the importance of her sobriety and maintaining this discharge opportunity. She is agreeable to the Abilify Maintena 400 mg IM q. monthly injection to be received today. We discussed the likelihood of discharge in the next 48 hours. Mental Status Exam MSE Comments: This is a well-nourished, well-developed white female in hospital scrubs with improving grooming and eye contact. She appears older than her stated age.?? Poor dentition with no abnormal movements except for mild psychomotor retardation. She was cooperative with exam in no acute distress. Speech was more normal rate and volume with improving prosody. Mood described as good affect was less subdued. Thought process was often linear, less illogical, and organized with less expressive aphasitic delivery that has been seen with her during these post methamphetamine episodes. Thought content: patient denies suicidal or homicidal ideation. There were no delusions reported, She denied any auditory or visual hallucinations. Attention and concentration appeared improved and memory appeared limited but improving but none were formally tested.? ? She?s alert and oriented x3. ? Insight, judgment and impulse control seem to be improving. Vitals/I&O/Wt Last Vital Signs Temp 97.7 F 11/08/22 14:00 Pulse 99 11/08/22 14:00 Resp 18 11/08/22 22:00 BP 111/55 11/08/22 14:00 Pulse Ox 97 11/08/22 14:00 O2 Del Method 11/07/22 14:00 Data NPU 10/25/22 04:59 10/25/22 04:18 A&P Assessment and plan (1) Drug-induced psychotic disorder: (2) Methamphetamine abuse: (3) Acute psychosis: (4) Alcohol intoxication: Plan This is a 27-year-old female who has been seen in the past with concern for permanent psychosis likely due to chronic methamphetamine abuse, presenting with law enforcement with positive BAL and positive UDS for amphetamines with altered mental status with limited arousability. 1 ? Continue abilify at 20mg daily, continue Zyprexa 5mg at night. We will give Abilify Maintena 400 mg IM q. monthly. 2.? Continue every 15 minute checks for safety. 3.? Encourage individual, group and milieu therapies. 4.? Encourage sober living treatment after discharge at the highest level of care to which she is willing to commit. 5.? Get collateral information on her guardianship and her stay at [facility]. 6. 21-day hold was approved. Involuntary Hold Information 96 Hour Hold: 96 Hour Involuntary Admission: Yes 96 Hour Hold Ending Date: 04/18/22 96 Hour Hold Ending Time: 17:00 Attestations NPU Medical Necessity Statement*: Inpatient hospitalization is medically necessary and the clinically appropriate intervention at this time. We will initiate medications and make changes as indicated. Likely length of stay 1-3 days. Coding Level of Care Code Acute Factory Laborer for Kyleigh Valadez Diagnoses Drug-induced psychotic disorder F19.959 Methamphetamine abuse F15.10 Acute psychosis F23 Alcohol intoxication F10.929
[2022-11-09] MEDS: ARIPiprazole Maintena 400 MG IM (11:14)
[2022-11-09 14:00] VITALS: BP 113/72; PULSE 96; RESP 18; TEMP 36.9; O2SAT 99
[2022-11-09] MEDS: nicotine 21 mg Patch 1 PATCH TRANSDERMA (14:00)
[2022-11-09] MEDS: hyDROXYzine 25 mg Capsule 50 MG PO (17:45)
[2022-11-09] MEDS: OLANZapine 5 mg ODT PO (19:59)
[2022-11-09] MEDS: trazodone 50 mg Tablet PO ×2 (20:00→21:26)
[2022-11-09 21:48] VITALS: BP 118/73; PULSE 98; RESP 18; TEMP 37.1; O2SAT 95
[2022-11-10 05:21] VITALS: RESP 16
[2022-11-10] MEDS: thiamine 100 mg Tablet PO (08:15)
[2022-11-10] MEDS: ARIPiprazole 10 mg Tablet 20 MG PO (08:15)
[2022-11-10] MEDS: multivitamin therapeutic Tablet 1 TAB PO (08:15)
[2022-11-10] MEDS: folic acid 1 mg Tablet PO (08:15)
[2022-11-10 14:00] VITALS: BP 121/80; PULSE 106; RESP 18; TEMP 36.9; O2SAT 98
[2022-11-10] MEDS: ibuprofen 600 mg Tablet PO (14:02)
[2022-11-10] MEDS: hyDROXYzine 25 mg Capsule 50 MG PO (17:10)
--- NOTE | 2022-11-10 17:10 | PC.NURSE ---
PRN Drum Tender Patient approached the nurses' station very anxious and emotional. Hydroxyzine 50 mg PO administered.
[2022-11-10] MEDS: nicotine 2 mg Gum BUCCAL (17:58)
--- NOTE | 2022-11-10 18:00 | P.NPUPN_ITS ---
Subjective NPU Subjective: Patient presented today reporting that she is excited about discharge tomorrow. We continued to talk about aftercare and her making sure that she continues to get her injection and stay on the Abilify. We once again reviewed her need to take the oral Abilify for about 11 days after discharge. And more critically we talked about the need for sobriety to be at her primary focus and she continued to report understanding and being focused on those goals. Mental Status Exam MSE Comments: This is a well-nourished, well-developed white female in hospital scrubs with improving grooming and eye contact. She appears older than her stated age.?? Poor dentition with no abnormal movements except for mild psychomotor retardation. She was cooperative with exam in no acute distress. Speech was more normal rate and volume with improving prosody. Mood described as good affect was less subdued. Thought process was more organized with less expressive aphasitic delivery. Thought content: patient denies suicidal or homicidal ideation. There were no delusions reported, She denied any auditory or visual hallucinations. Attention and concentration appeared improved and memory appeared limited but improving but none were formally tested.? ? She?s alert and oriented x3. ? Insight, judgment and impulse control seem to be improving. Vitals/I&O/Wt Last Vital Signs Temp 98.4 F 11/10/22 22:00 Pulse 91 11/10/22 22:00 Resp 16 11/10/22 22:00 BP 148/73 11/10/22 22:00 Pulse Ox 98 11/10/22 22:00 O2 Del Method 11/09/22 14:00 Weight last 48 hrs Weight 65.544 kg Data NPU 10/25/22 04:59 10/25/22 04:18 A&P Assessment and plan (1) Drug-induced psychotic disorder: (2) Methamphetamine abuse: (3) Acute psychosis: (4) Alcohol intoxication: Plan This is a 27-year-old female who has been seen in the past with concern for permanent psychosis likely due to chronic methamphetamine abuse, presenting with law enforcement with positive BAL and positive UDS for amphetamines with altered mental status with limited arousability. 1 ? Continue abilify at 20mg daily, continue Zyprexa 5mg at night. Administered Abilify Maintena 400 mg IM q. monthly 11/09/2022. 2.? Continue every 15 minute checks for safety. 3.? Encourage individual, group and milieu therapies. 4.? Encourage sober living treatment after discharge at the highest level of care to which she is willing to commit. 5.? Get collateral information on her guardianship and her stay at [facility]. 6. 21-day hold was approved. Involuntary Hold Information 96 Hour Hold: 96 Hour Involuntary Admission: Yes 96 Hour Hold Ending Date: 04/18/22 96 Hour Hold Ending Time: 17:00 Attestations NPU Medical Necessity Statement*: Inpatient hospitalization is medically necessary and the clinically appropriate intervention at this time. We will initiate medications and make changes as indicated. Likely length of stay 1-2 days. Tentative plan for discharge tomorrow. 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
[2022-11-10] MEDS: OLANZapine 5 mg ODT PO (19:22)
[2022-11-10] MEDS: trazodone 50 mg Tablet PO (19:22)
[2022-11-10 22:00] VITALS: BP 148/73; PULSE 91; RESP 16; TEMP 36.9; O2SAT 98
[2022-11-11 06:00] VITALS: RESP 16
[2022-11-11] MEDS: multivitamin therapeutic Tablet 1 TAB PO (08:28)
[2022-11-11] MEDS: thiamine 100 mg Tablet PO (08:28)
[2022-11-11] MEDS: folic acid 1 mg Tablet PO (08:28)
[2022-11-11] MEDS: ARIPiprazole 10 mg Tablet 20 MG PO (08:28)
[2022-11-11] MEDS: nicotine 2 mg Gum BUCCAL ×2 (08:30→12:09)
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
[2022-11-11 10:57] VITALS: BP 148/73; PULSE 91; RESP 16; TEMP 36.9; O2SAT 98
== END 2022-11-11 12:44 | disposition home or self-care (01) | DRG 897 ==
LOC: ER 07:16 → NP 07:52
PROVIDERS: Admitting Provider Psychiatry & Neurology Psychiatry; Emergency Provider Emergency Medicine; Visit Provider Psychiatry & Neurology Psychiatry
DX: F19.959 Other psychoactive substance use, unspecified with psychoactive substance-induced psychotic disorder, unspecified (principal); R45.851 Suicidal ideations; F10.129 Alcohol abuse with intoxication, unspecified; Y90.9 Presence of alcohol in blood, level not specified; F15.10 Other stimulant abuse, uncomplicated; Z79.891 Long term (current) use of opiate analgesic
CPT/HCPCS: 36415; 80053; 80306; 80307; 81001; 81025; 84443; 85025; 85610; 90935; 93005; 96372; 97150; 97165; 99285; J2060; J3486; J3490; Q0163